=== PATIENT | female | born 1985 | race African-American/Black ===

== ENCOUNTER 2021-10-31 11:31 | Emergency (ER) | payer OTHER, SELFPAY ==
--- NOTE | 2021-10-31 11:36 | ED.URI ---
HPI - URI/Sore Throat General Chief Complaint: Upper Respiratory Infection Stated Complaint: sore throat Time Seen by Provider: 10/31/21 11:36 Source: patient Mode of arrival: ambulatory Limitations: no limitations History of Present Illness HPI Narrative: Ms. Briseno is a 36-year-old female patient presenting to the clinic today with complaints of sore throat, postnasal drip, sinus pressure, and nasal congestion x2 weeks. She reports no fever or chills however she has been having a productive cough at times. No known exposure to COVID, flu, or strep. MD elicited complaint: sore throat and nasal congestion Related Data Allergies Allergy/AdvReac Type Severity Reaction Status Date / Time No Known Allergies Allergy Unverified 09/04/18 19:00 Review of Systems Review of Systems: Pertinent positives per HPI. Patient denies any fever, chills, rash, headache, visual changes, dizziness, cough, shortness of breath, chest pain, palpitations, nausea, vomiting, diarrhea, constipation, abdominal pain, or any urinary issues. [facility] Social History Social History Smoking status: Never smoker Second hand tobacco smoke exposure: No Alcohol intake: current Comments At the time of my signature, I reviewed and agree with the nursing past medical, surgical, social, and family history. There is no relevant family history pertinent to the patient complaint. Exam Narrative: General: Well-developed, obese, in no apparent distress Head: Normocephalic, atraumatic Eyes: Pupils equally round and reactive to light bilaterally, EOM intact, sclera and conjunctive clear, no discharge, lids normal Ears: TMs intact and dull, ear canals ceruminous, no drainage, grossly hearing normal. Nose: Nares patent, no discharge, moderate inflammation to the anterior and posterior turbinates bilaterally, sinus tenderness to palpation over the maxillary and frontal sinuses. Mouth: Oral pharynx without lesions or masses, good dentition, MMM. Postnasal drip, oropharynx red Neck: Supple, trachea midline, no enlargement of anterior or posterior cervical nodes, no thyroid masses or goiter palpable. Cardio: Regular rate and rhythm, s1 and s2 normal, no murmur appreciated. Resp: Clear to auscultation bilaterally, no rhonchi, rales, wheezing or rubs Course Course Emergency Course: Portions of this record may have been created with voice recognition software. Level of Care: Express Care Visit Vital Signs Vital signs: Vital signs reviewed MDM - URI/Sore Throat MDM Narrative Medical decision making narrative: At the time of visit patient is resting comfortably on the exam table. She has had nasal congestion, sinus pressure, headaches, productive cough at times, and sore throat x2 weeks. Assessment shows that she has a an acute sinus infection and I will treat with a prescription for some Augmentin x10 days. Supportive measures were discussed with the patient and she voiced understanding and agrees with the treatment plan. Differential Diagnosis Differential diagnosis: Likely upper respiratory infection, croup, otitis media, sinusitis, viral infection, influenza and pharyngitis Discharge Plan Discharge Clinical Impression: Acute rhinosinusitis Patient Disposition: Home, Self-Care Condition: Stable Instructions: Antibiotic Form, Rhinosinusitis (ED) Additional Instructions: Take prescription medications only as prescribed-amoxicillin Increase fluids and stay well hydrated Tylenol/motrin for pain/fever Flonase and OTC antihistamines as directed Vicks vapor rub to open sinuses Sinus rinses for congestion Cepacol spray, cough drops, throat lozenges, warm tea with honey/lemon, gargle salt water to soothe throat Go to the ED if you develop high fever that is not controlled by Tylenol or Motrin, dehydration, weakness, lethargy, shortness of breath, or chest pain. Follow up with your PCP
[2021-10-31 11:39] VITALS: BP 128/59; PULSE 78; RESP 16; TEMP 37.1; O2SAT 99
== END 2021-10-31 11:47 | disposition home or self-care (01) ==
PROVIDERS: Emergency Provider Nurse Practitioner Family
DX: J01.90 Acute sinusitis, unspecified (principal); Z85.41 Personal history of malignant neoplasm of cervix uteri
CPT/HCPCS: 99213; G0463

== ENCOUNTER 2021-12-10 17:52 | Emergency (ER) | payer OTHER, SELFPAY ==
[2021-12-10 18:01] VITALS: BP 130/78; PULSE 116; RESP 16; TEMP 36.8; O2SAT 100
--- NOTE | 2021-12-10 18:29 | ED.URI ---
HPI - URI/Sore Throat General Chief Complaint: Upper Respiratory Infection Stated Complaint: Abdominal Pain,Cough Time Seen by Provider: 12/10/21 18:10 Source: patient Mode of arrival: ambulatory Limitations: no limitations History of Present Illness HPI Narrative: 36 yo F presents with c/o feeling lightheaded yesterday with N/V and raspy voice. Today no longer feeling lightheaded. Has not vomited since last night. States she has had headache and cough. Drank hot totty prior to arrival. Pt is talkative and smiling. Denies SOB and CP. States she stopped at [employer] on the way and bought some cough drops. covid vaccinated. All systems reviewed and negative except as noted above. Related Data Allergies Allergy/AdvReac Type Severity Reaction Status Date / Time No Known Allergies Allergy Unverified 12/10/21 17:56 Review of Systems Review of Systems: CONSTITUTIONAL: Denies fever, chills, or sweats. Reports fatigue EYES: Denies visual changes, redness, or discharge. ENT: Denies rhinorrhea, congestion, sore throat, or otalgia. CARDIOVASCULAR: Denies chest pain, palpitations, or edema. RESPIRATORY: reports cough. Denies dyspnea. GASTROINTESTINAL: Denies abdominal pain, nausea, vomiting, or diarrhea. GENITOURINARY: Denies dysuria or hematuria. SKIN: Denies rash or itching. MUSCULOSKELETAL: Denies back pain, joint pain, or myalgia. NEUROLOGIC: Reports headache, feeling lightheaded. Denies numbness, or weakness. PSYCHIATRIC: Denies anxiety or depression. All other systems reviewed are negative, except as documented in HPI. [facility] Social History Social History Smoking status: Never smoker Second hand tobacco smoke exposure: No Alcohol intake: current Comments At time of signature, agree with nursing past medical, surgical, social and family history. There is no relevant family history pertinent to the presenting complaint. Exam Narrative: GENERAL: This is a well-nourished, well-developed patient, in no apparent distress. HEAD: normocephalic, atraumatic. EYES: PERRL. Sclera clear/white. Vision is grossly intact. EARS: External ears normal, auditory canals clear and without drainage, TMs normal without perforation. Hearing grossly intact. NOSE: External nose normal with no obvious nasal discharge, nares without redness, no rhinorrhea. THROAT: Mucous membranes moist, posterior pharynx clear. NECK: Neck supple, non-tender without lymphadenopathy, masses or thyromegaly. CARDIOVASCULAR: Regular rate and rhythm without murmurs, gallops, or rubs. RESPIRATORY: Clear to auscultation. Breath sounds equal bilaterally. No wheezes, rales, or rhonchi. SKIN: warm, Dry, intact with no suspicious lesions or rash, good texture and turgor. NEURO: awake, alert, and oriented to person, place and time. There were no obvious focal neurologic abnormalities. EXTREMITIES: No joint tenderness, effusion, or edema noted. Course Course Level of Care: Express Care Visit Vital Signs Vital signs: Vital Signs Temperature 36.8 C 12/10/21 18:01 Pulse Rate 116 H 12/10/21 18:01 Respiratory Rate 16 12/10/21 18:01 Blood Pressure 130/78 12/10/21 18:01 Pulse Oximetry 100 12/10/21 18:01 Oxygen Delivery Room Air 12/10/21 18:01 Temperature 36.8 C 12/10/21 18:01 Pulse Rate 116 H 12/10/21 18:01 Respiratory Rate 16 12/10/21 18:01 Blood Pressure 130/78 12/10/21 18:01 Pulse Oximetry 100 12/10/21 18:01 Oxygen Delivery Room Air 12/10/21 18:01 Reviewed MDM - URI/Sore Throat MDM Narrative Medical decision making narrative: Patient is aware of diagnosis, understands and agrees to treatment plan. Anticipatory guidance given. Patient agrees to follow-up as directed and is aware of reasons to seek care at the emergency department. Portions of this record may have been created with voice recognition software positive rapid covid. prescribed antiviral, paxlovi
== END 2021-12-10 18:33 | disposition home or self-care (01) ==
PROVIDERS: Emergency Provider Nurse Practitioner Family
DX: U07.1 COVID-19 (principal); Z85.41 Personal history of malignant neoplasm of cervix uteri
CPT/HCPCS: 87426; 87804; 99213; C9803; G0463

== ENCOUNTER 2022-10-30 19:19 | Emergency (ER) | payer OTHER, SELFPAY ==
--- NOTE | 2022-10-30 19:24 | ED.URI ---
HPI - URI/Sore Throat General Chief Complaint: Upper Respiratory Infection Stated Complaint: Sinus, allergies, fever Time Seen by Provider: 10/30/22 19:24 Source: patient Mode of arrival: ambulatory Limitations: no limitations History of Present Illness HPI Narrative: Roderick is a 37-year-old female patient presenting to the clinic today with complaints of sinus congestion, headache, cough, possible allergies for over 1 week. She reports no known fever or chills. Is having a lot of sinus headache/pressure. Also is having a productive cough with green phlegm MD elicited complaint: sore throat and nasal congestion Related Data Allergies Allergy/AdvReac Type Severity Reaction Status Date / Time No Known Allergies Allergy Verified 10/30/22 19:22 Review of Systems Review of Systems: Pertinent positives per HPI. Patient denies any fever, chills, rash, headache, visual changes, dizziness, shortness of breath, chest pain, palpitations, nausea, vomiting, diarrhea, constipation, abdominal pain, or any urinary issues. [facility] Social History Social History Smoking status: Never smoker Second hand tobacco smoke exposure: No Alcohol intake: current Comments At the time of my signature, I reviewed and agree with the nursing past medical, surgical, social, and family history. There is no relevant family history pertinent to the patient complaint. Exam Narrative: General: Well-developed, well nourished, in no apparent distress Head: Normocephalic, atraumatic Eyes: Pupils equally round and reactive to light bilaterally, EOM intact, sclera and conjunctive clear, no discharge, lids normal Ears: TMs intact and congested, ear canals clear, no drainage, grossly hearing normal. Nose: Nares patent, green nasal discharge, moderate inflammation, maxillary and frontal sinus tenderness. Mouth: Oral pharynx red without lesions or masses, good dentition, PND, MMM. Neck: Supple, trachea midline, no enlargement of anterior or posterior cervical nodes, no thyroid masses or goiter palpable. Cardio: Regular rate and rhythm, s1 and s2 normal, no murmur appreciated. Resp: Faint expiratory wheezing, no rhonchi, rales,or rubs Course Course Emergency Course: Portions of this record may have been created with voice recognition software. Level of Care: Express Care Visit Vital Signs Vital signs: Vital signs reviewed MDM - URI/Sore Throat MDM Narrative Medical decision making narrative: At the time of visit patient is resting comfortably on the exam table. I suspect patient has acute bacterial rhinosinusitis and bronchitis. Prescription for albuterol inhaler, Augmentin, and prednisone was sent to the pharmacy. Supportive measures were discussed with the patient she voiced understanding of discharge instructions and agrees to treatment plan. Differential Diagnosis Differential diagnosis: Likely upper respiratory infection, otitis media, sinusitis, viral infection, bronchitis, influenza, pharyngitis and other (COVID) Discharge Plan Discharge Clinical Impression: Acute bacterial rhinosinusitis, Bronchitis Patient Disposition: Home, Self-Care Condition: Stable Instructions: Antibiotic Form, Acute Bronchitis (ED), Rhinosinusitis (ED) Additional Instructions: Take prescription medications only as prescribed-prednisone and augmentin Increase fluids and stay well hydrated Tylenol/motrin for pain/fever Flonase and OTC antihistamines as directed Vicks vapor rub to open sinuses Sinus rinses for congestion Cepacol spray, cough drops, throat lozenges, warm tea with honey/lemon, gargle salt water to soothe throat BRAT diet for diarrhea Clear liquids x 24 hours then advance as tolerated for nausea/vomiting Go to the ED if you develop a worsening in your condition- high fever not controlled by Tylenol or Motrin, dehydration, weakness, lethargy, shortness
[2022-10-30 19:27] VITALS: BP 137/80; PULSE 107; RESP 18; TEMP 37.1; O2SAT 100
== END 2022-10-30 19:42 | disposition home or self-care (01) ==
PROVIDERS: Emergency Provider Nurse Practitioner Family
DX: J01.90 Acute sinusitis, unspecified (principal); J40 Bronchitis, not specified as acute or chronic; Z85.41 Personal history of malignant neoplasm of cervix uteri
CPT/HCPCS: 99213; G0463

== ENCOUNTER 2023-01-05 19:44 | Emergency (ER) | payer OTHER, SELFPAY ==
[2023-01-05 19:48] VITALS: BP 144/78; PULSE 96; RESP 15; TEMP 36.3; O2SAT 98
[2023-01-05 20:33] LABS: Basophils Percent Auto 0.4 % (0.2-1.2); Eosinophils Absolute Auto 0.2 K/mm3 (0-0.3); Eosinophils Percent Auto 2.3 % (0-4.4); Hematocrit 39.2 % (37.0-47.0); Hemoglobin 13.2 g/dL (12.0-15.0); Immature Granulocyte Absolute 0.02 K/mm3 (0.00-0.031); Immature Granulocyte Percent A 0.2 % (0-0.5); Lymphocytes Absolute Auto 4.07 K/mm3 (0.9-3.2); Lymphocytes Percent Auto 48.6 % (18.3-44.2); Mean Corpuscular HGB Conc 33.7 g/dl (32-36); Mean Corpuscular Hemoglobin 29.1 pg (26-34); Mean Corpuscular Volume 86.3 fl (80-100); Monocytes Absolute Auto 0.5 K/mm3 (0.1-0.6); Monocytes Percent Auto 6.3 % (2.6-8.5); Neutrophils Absolute Auto 3.5 K/mm3 (1.3-6.7); Neutrophils Percent Auto 42.2 % (45.5-73.1); Platelet Count Result 408 k/mm3 (150-375); Red Blood Count 4.54 M/mm3 (4.2-5.4); Red Cell Distribution Width 11.9 % (11.5-14.5); White Blood Count 8.4 K/mm3 (4.5-10.0)
[2023-01-05 20:43] LABS: Alanine Aminotransferase 23 U/L (6-35); Albumin Level 4.5 g/dL (3.5-5.1); Alkaline Phosphatase 60 U/L (38-126); Anion Gap 10 mmol/L (8-16); Aspartate Amino Transferase 26 U/L (14-36); Bilirubin,Total 0.4 mg/dL (0.2-1.3); Blood Urea Nitrogen 13 mg/dL (7-17); Calcium 9.5 mg/dL (8.4-10.2); Carbon Dioxide 24 mmol/L (22-30); Chloride 106 mmol/L (98-107); Estimated CRCL calculation 74 ml/min; Estimated Glomerular Filt Rate > 60; Glucose 99 mg/dL (65-110); Potassium 3.7 mmol/L (3.4-5.0); Sodium 140 mmol/L (137-145)
[2023-01-05 20:46] LABS: Appearance Urine Turbid (Clear); Bacteria Urine 3+ /hpf; Bilirubin Urine Negative (Negative); Blood Urine 3+ (Negative); Color Urine Yellow (Yellow); Glucose Urine UA Negative (Negative); Ketones Urine Negative (Negative); Leukocyte Esterase Ur 3+ LEU/UL (Negative); Need Manual Microscopic Reviewed; Nitrate Urine Negative (Negative); Non Pathogenic Casts 0-2; Protein Urine Trace mg/dL (Negative); Specific Grav Ur 1.026 (1.001-1.035); Squamous Epithelial Cell Urine Many /hpf (Few); WBC Urine >100 /hpf; pH Urine 5.5 (5.0-9.0)
[2023-01-05 20:48] LABS: Prothrombin Time 13.2 Seconds (11.1-14.7)
--- NOTE | 2023-01-05 20:48 | ED.FEMALEGU ---
HPI - Female Genitourinary General Chief complaint: Vaginal Bleeding Stated complaint: vaginal bleeding Time Seen by Provider: 01/05/23 20:20 Source: patient Mode of arrival: ambulatory Limitations: no limitations History of Present Illness HPI Narrative: This is a 37-year-old female that presents to the emergency department for vaginal bleeding noted today. Reports she has had a total hysterectomy 13 years ago. Today she has had bright red vaginal bleeding. She has been having to use a pad. She presented for evaluation of this. Denies fever, abdominal pain, vomiting, dysuria, or hematuria. Related Data Allergies Allergy/AdvReac Type Severity Reaction Status Date / Time No Known Allergies Allergy Verified 01/05/23 19:51 Review of Systems Review of Systems: CONSTITUTIONAL: Denies fever GASTROINTESTINAL: Denies abdominal pain, nausea, vomiting, or diarrhea. GENITOURINARY: Denies dysuria or hematuria. All systems reviewed & are unremarkable except as noted in HPI and below PMFSH Past Medical History Medical History (Updated 01/05/23 @ 22:36 by Kat Wong PA-C) History of cervical cancer Social History Social History Smoking status: Never smoker Second hand tobacco smoke exposure: No Alcohol intake: current Exam Narrative: GENERAL: Well-appearing, well-nourished, and in no acute distress. HEAD: Normocephalic, atraumatic. EYES: EOMI. CHEST: Clear to auscultation. No respiratory distress. No wheezes rales or rhonchi HEART: Regular rate and rhythm. No murmur heard. Normal peripheral pulses. ABDOMEN: Soft, nontender, nondistended, normal active bowel sounds. EXTREMITIES: Normal range of motion. No edema. SKIN: Warm, dry, no rash. NEURO: No focal deficits. Alert and oriented x3. PSYCH: Normal mood and affect PELVIC: Vaginal cuff is friable with mild oozing of blood Course Course Emergency Course: Patient was updated on work-up and agrees with plan of care Consultations Consultation #1: Spoke with Dr. Villanueva about patient and workup who will follow up in clinic Date: 01/05/23 Vital Signs Vital signs: Vital Signs Temperature 97.4 F L 01/05/23 19:48 Pulse Rate 96 01/05/23 19:48 Respiratory Rate 15 01/05/23 19:48 Blood Pressure 144/78 H 01/05/23 19:48 Pulse Oximetry 98 01/05/23 19:48 Oxygen Delivery Room Air 01/05/23 19:48 Temperature 97.4 F L 01/05/23 19:48 Pulse Rate 79 01/05/23 21:44 Respiratory Rate 18 01/05/23 21:44 Blood Pressure 115/86 01/05/23 22:06 Pulse Oximetry 99 01/05/23 21:44 Oxygen Delivery Room Air 01/05/23 19:48 MDM - Female Genitourinary MDM Narrative Medical decision making narrative: Patient presents to the ER for vaginal bleeding. Patient has had hysterectomy about 13 years ago. She does have history of cervical cancer. Has friable area to the vaginal cuff that is slowly oozing blood. She is afebrile and nontoxic appearing. Her vitals are stable. Her hemoglobin is normal. UA with 3+ leuk esterase and >100 white blood cells. Patient does not endorse any urinary symptoms. This will be sent for a culture. Spoke with Dr. Villanueva about patient and workup who will follow up in clinic. Will send trichomonas. Patient was updated on work-up and agrees with plan of care. Instructed to have close follow-up with gynecology. She was given warnings to return to the ER Differential Diagnosis Differential diagnosis: Likely urinary tract infection, trichomoniasis, vaginitis and cystitis Lab Data Attestation: I reviewed the patient's lab results. 01/05/23 20:26 01/05/23 20:26 Labs: Lab Results 01/05/23 01/05/23 Range/Units 20:23 20:26 WBC 8.4 (4.5-10.0) K/mm3 RBC 4.54 (4.2-5.4) M/mm3 Hgb 13.2 (12.0-15.0) g/dL Hct 39.2 (37.0-47.0) % MCV 86.3 (80-100) fl MCH 29.1 (26-34) pg MCHC 33.7 (32-36) g/dl RDW 11.9 (1
[2023-01-05 20:49] LABS: Add Urine Microscopic? YES; Partial Thromboplastin Time 23.4 SECONDS (22.3-36.8)
[2023-01-05 21:44] VITALS: BP 140/76; PULSE 79; RESP 18; O2SAT 99
[2023-01-05 22:06] VITALS: BP 115/86
[2023-01-05 22:47] VITALS: PULSE 83; RESP 17; O2SAT 100
== END 2023-01-05 22:48 | disposition home or self-care (01) ==
PROVIDERS: Emergency Provider Physician Assistant
DX: N93.9 Abnormal uterine and vaginal bleeding, unspecified (principal); R82.81 Pyuria; Z85.41 Personal history of malignant neoplasm of cervix uteri
CPT/HCPCS: 36415; 80053; 81001; 85025; 85610; 85730; 86850; 86900; 86901; 87086; 87088; 87661; 99284

== ENCOUNTER 2023-01-06 12:29 | Emergency (ER) | payer OTHER, SELFPAY ==
[2023-01-06 12:32] VITALS: BP 134/78; PULSE 87; RESP 18; TEMP 36.4; O2SAT 98
--- NOTE | 2023-01-06 14:38 | PC.NURSE ---
pt angry about not getting an US, pt stated that she was to have one. Asked the pt who ordered one and stated, the doctor last night informed the pt, that if one was ordered she would have to go radiology outpatient for the test. also informed the pt that if one was not ordered she would have to be seen in ED and the provider would decide if one was necessary. Pt angry about conversation, asked for my name and number to call to complain. pt was given name and given card to pt advocate.
--- NOTE | 2023-01-06 15:56 | ED.GENADULT ---
HPI - General Adult General Chief complaint: Unspecified Stated complaint: needs ultrasound Time Seen by Provider: 01/06/23 15:35 Source: patient, RN notes reviewed and old records reviewed Mode of arrival: ambulatory Limitations: no limitations History of Present Illness HPI narrative: This is a 37 year old female who presents for evaluation of abnormal vaginal bleeding. Patient states yesterday she noticed vaginal bleeding. She states she came to ER for evaluation. She reports she was told by the provider last night that she wanted to do an ultrasound but they were not available. Patient was discharged on oral antibiotics and told to follow up with cabin agent. She has vaginal cultures that are pending. Patient states she called her cabin agent and she has appointment next Friday. Patient states she does not want to wait until next friday. She also reports she came back because she went through more than 1 pad an hour. Related Data Allergies Allergy/AdvReac Type Severity Reaction Status Date / Time No Known Allergies Allergy Verified 01/05/23 19:51 [facility] Past Medical History Medical History History of cervical cancer Surgical History Surgical History (Updated 01/06/23 @ 16:00 by Daisy Galvan MD) H/O: hysterectomy Social History Social History Smoking status: Never smoker Second hand tobacco smoke exposure: No Alcohol intake: current Exam Const: General: no acute distress, alert, awake and Physically active Orientation/consciousness: patient oriented x3 Limitations: no limitations Resp: Effort & Inspection: normal respiratory effort and able to speak in complete sentences Neuro: General: patient oriented x3 Course Reevaluation(s) Reevaluation #1: I had to take a phone call while I was obtaining history and physical. I was discussing with patient I read her chart from yesterday. I was talking to patient about US. I was not sure if US would be beneficial but I told her I would come back to talk to her to see if it or something else needed to be done. I discussed with patient that I think she needs to have labs redrawn since she still reports heavy bleeding. When I went back to see patient about to talk about everything, she had eloped. Date: 01/06/23 Time: 16:04 Vital Signs Vital signs: Vital Signs Temperature 97.6 F 01/06/23 12:32 Pulse Rate 87 01/06/23 12:32 Respiratory Rate 18 01/06/23 12:32 Blood Pressure 134/78 01/06/23 12:32 Pulse Oximetry 98 01/06/23 12:32 Oxygen Delivery Room Air 01/06/23 12:32 Temperature 97.6 F 01/06/23 12:32 Pulse Rate 87 01/06/23 12:32 Respiratory Rate 18 01/06/23 12:32 Blood Pressure 134/78 01/06/23 12:32 Pulse Oximetry 98 01/06/23 12:32 Oxygen Delivery Room Air 01/06/23 12:32 Medical Decision Making Vital Signs Vital Signs: Vital Signs Temperature 97.6 F 01/06/23 12:32 Pulse Rate 87 01/06/23 12:32 Respiratory Rate 18 01/06/23 12:32 Blood Pressure 134/78 01/06/23 12:32 Pulse Oximetry 98 01/06/23 12:32 Oxygen Delivery Room Air 01/06/23 12:32 Temperature 97.6 F 01/06/23 12:32 Pulse Rate 87 01/06/23 12:32 Respiratory Rate 18 01/06/23 12:32 Blood Pressure 134/78 01/06/23 12:32 Pulse Oximetry 98 01/06/23 12:32 Oxygen Delivery Room Air 01/06/23 12:32 Discharge Plan Discharge Clinical Impression: Abnormal vaginal bleeding Patient Disposition: Elopement After Seen by Prov Condition: Stable Prescriptions: No Action prednisone 20 mg tablet 40 mg PO DAILY 5 Days Qty: 10 0RF albuterol sulfate 90 mcg/actuation HFA aerosol inhaler 2 puff inhalation Q4-6H PRN (Reason: shortness of breath or wheezing) 30 Days Qty: 8.5 0RF amoxicillin-pot clavulanate 875-125 mg tablet 1 tablet PO Q12H 10 Days Qty: 20 0RF ce
== END 2023-01-06 16:26 | disposition left against medical advice (07) ==
LOC: ANHED 16:16
PROVIDERS: Emergency Provider General Practice
DX: N93.9 Abnormal uterine and vaginal bleeding, unspecified (principal); Z85.41 Personal history of malignant neoplasm of cervix uteri
CPT/HCPCS: 99281

== ENCOUNTER 2023-01-29 09:16 | Outpatient (CLI) | payer OTHER, SELFPAY | END 2023-01-29 09:17 | disposition home or self-care (01) | LOC: ANHSURGERY 09:21 | PROVIDERS: PCP Physician Assistant; Visit Provider Obstetrics & Gynecology | DX: D21.9 Benign neoplasm of connective and other soft tissue, unspecified (principal); Z01.818 Encounter for other preprocedural examination | CPT/HCPCS: 36415; 86850; 86900; 86901 ==

== ENCOUNTER 2023-02-07 00:27 | Day surgery (SDC) | payer OTHER, SELFPAY ==
[2023-01-28 15:00] VITALS: BMI 31.0
--- NOTE | 2023-01-28 15:01 | PC.NURSE ---
Report to the Outpatient Waiting Room, entrance under the green pavilion located off [facility], at time _0730_ on date _[id number]_. Planned Procedure Time: _0930_. Time changes happen often and if your time is changed the preop area will call you the afternoon before. - You and your visitor will be asked to self-screen and do not enter if you have any COVID symptoms. - A mask is optional within the hospital at this time. Patients may have clear liquids (water, carbonated beverages, clear teas, apple juice) until 3 hours prior to surgery with a maximum of 20 ounces. - No food from midnight until time of surgery Take the following medications with a SIP of water the morning of surgery: _None DO NOT STOP ANY OF YOUR OTHER PRESCRIPTION MEDICATIONS PRIOR TO SURGERY ?EXCEPT THE FOLLOWING Medications to discontinue per physician __None Date to take last dose Please no make-up, nail cameroonian, hairspray, perfume, deodorant, or body powder the day of surgery. No jewelry (including any body piercings) or valuables the day of surgery, leave them at home. Please take a shower or bath the night before, or the morning of, surgery with an antibacterial soap. Wear comfortable, loose fitting clothing. - Jewelry must be removed prior to entering the operating room. Rings and piercings that are not removed may be cut off. - The hospital will not accept responsibility for valuables. - Please leave all valuables, including medications, at home the day of surgery. If you are going home after surgery, a licensed hazmat tanker driver must drive you home. - NO public transportation without another adult if you receive anesthesia. - We recommend that an adult stay with you for 24 hours following discharge. - We also recommend that you do not drive, make important decision, drink alcoholic beverages, or take any drugs that were not prescribed by your health care provider for at least 24 hours after your discharge time. Follow any additional instructions given to you from your surgeon. If you or anyone in your household have experienced Covid symptoms in the past week, please notify your surgeon or the nurse liaison at the phone number below for possible testing. Telephone instructions given to _Patient__and asked if any additional questions and then verbalized understanding. Patient advised to call surgeon office or pre surgery nurse liaison [phone] if any additional questions.
--- NOTE | 2023-02-05 11:55 | P.HP_ITS ---
H&P: HPI History of Present Illness Date/Time: 02/05/23 11:55 Chief Complaint: Uterine fibroids enlarged uterus/vaginal bleeding Narrative: This is 37-year-old female with known uterine fibroids proven by imaging admitted for robotic hysterectomy bilateral salpingectomy. She had an ablation and failed she continues to have dyspareunia is enlarged uterus and agrees to robotic hysterectomy and bilateral salpingectomy. Risks and benefits reviewed including not exclusive of , aspiration, bleeding, transfusion, perforation injury to bowel, bladder, ureters, or other internal organs with need for open laparotomy. She received the [employer] handout entitled hysterectomy. She received the de Puneet handout. She had all questions answered. She asked to proceed. [facility] Past Medical History Medical History History of cervical cancer Surgical History Surgical History H/O: hysterectomy Social History Social History Smoking status: Never smoker Second hand tobacco smoke exposure: No Alcohol intake: current Living arrangements: with family Spiritual care concerns: No Meds Home Medications and Allergies Home Medications Medication Instructions Recorded Confirmed Type No Home Medications 01/28/23 01/28/23 History Allergies Allergy/AdvReac Type Severity Reaction Status Date / Time No Known Allergies Allergy Verified 01/28/23 14:50 Exam Const: General: cooperative, healthy appearing and comfortable Nutritional Appearance: average body habitus Orientation/consciousness: oriented to person, oriented to place and oriented to time HENMT: Head: normal to inspection Resp: Effort & Inspection: normal respiratory effort Cardio: Rate: regular rate Rhythm: regular rhythm Heart sounds: S1 normal heart sound present and S2 normal heart sound present GI: Inspection: normal to inspection : External Female Exam: normal external appearance Speculum Exam - Vagina: normal appearance of the vagina Speculum Exam - Cervix: normal appearance of the cervix Bimanual exam- vagina & uterus: enlarged Bimanual Exam- Adnexa, other: normal adnexae Assessment and Plan Assessment and plan (1) Uterine fibroid: Code(s): D25.9 - Leiomyoma of uterus, unspecified Status: Acute Plan Robotic total vaginal hysterectomy and bilateral salpingectomy
[2023-02-07] VITALS (11 sets, daily range): BP systolic 110–149; BP diastolic 60–98; PULSE 78–98; RESP 12–20; TEMP 36.6–37.2; O2SAT 95–100
--- NOTE | 2023-02-07 06:25 | WPDHPUPDATE1 ---
History and Physical Update Update Date/Time: 02/07/23 06:25 History and Physical has been reviewed, including an updated exam of the patient. There are NO changes in the patient's condition. Risks, benefits, and alternatives have been discussed and questions answered. Patient agrees to proceed with procedure.
[2023-02-07] MEDS: LACTATED RINGERS 1,000 ML 30 ML IV CONT ×2 (06:30→09:06)
[2023-02-07] MEDS: ACETAMINOPHEN 500 MG TABLET 1000 MG PO (06:44)
[2023-02-07] MEDS: KETOROLAC 15 MG/ML VIAL (*BKC) IV PUSH (06:44)
--- NOTE | 2023-02-07 06:54 | WPDANESEPPF ---
Anes - Initial Pre Proc Eval Procedure: Operation Date: 02/07/23 07:30 Proposed Procedures p Robotic Assisted Total Vaginal Hysterectomy, Bilateral Salpingectomy - Fabien Schaffer MD Date/Time: 02/07/23 06:54 Surgeon: Fabien Schaffer MD Pre Op Diagnosis: Pelvic Pain,Fibroid,Failed Ablation,Dyspareunia Patient Data Age: 37 Gender: F Height: 1.6 m Weight: 79.5 kg Allergies Allergy/AdvReac Type Severity Reaction Status Date / Time No Known Allergies Allergy Verified 01/28/23 14:50 Home Medications Medication Instructions Recorded Confirmed Type hydrocodone 5 mg-acetaminophen 325 1 tablet PO Q4H PRN pain #30 tabs 02/07/23 Rx mg tablet Patient hx anesthesia problems: none Family hx anesthesia problems: none Results Review: All pre-operative results and documents have been reviewed as part of the pre-operative evaluation. [facility] Past Medical History Medical History History of cervical cancer Surgical History Surgical History H/O: hysterectomy Social History Social History Smoking status: Never smoker Second hand tobacco smoke exposure: No Alcohol intake: current Living arrangements: with family Spiritual care concerns: No Anes - Eval Final PreProcedure Day of Procedure 02/07/23 06:54 Patient weight: obese Heart: regular rate and rhythm Lungs: clear to auscultation Airway: Mallampati scale class II Neurological: alert and oriented Last oral intake: >/= 8 hours ASA classification: II Emergent: no Anesthetic plan: proceed Anesthesia type and monitoring: general ETT and standard monitoring Results Review: All pre-operative results and documents have been reviewed as part of the pre-operative evaluation. Informed Consent: The patient's anesthetic plan and its attendant risks and benefits were discussed with the patient/family/POA. Questions were solicited and answers provided to the satisfaction of the patient/family/POA.
[2023-02-07] MEDS: SCOPOLAMINE 1.5 MG PATCH TRANSDERM (07:20)
[2023-02-07] MEDS: ceFAZolin 2 GM/D5W 50 ML 2 GM/50 ML BAG IVPB (07:25)
--- NOTE | 2023-02-07 08:35 | W.PM.PROC2 ---
Procedure Note - Detailed Date of Procedure 02/07/23 Pre-op Diagnosis Pelvic Pain,Fibroid,Failed Ablation,Dyspareunia Post-op Diagnosis Same Procedure Performed Robotic total vaginal hysterectomy bilateral salpingectomy Surgeon Fabien Schaffer MD Anesthesia General Indications 37-year-old female with known fibroids and severe pelvic pain Findings Markedly enlarged fibroid uterus. A large hematosalpinx on the right. Left tube was status post tubal ligation. Bilateral ovaries appeared within normal limits Description of Procedure Patient was prepped draped in normal sterile fashion placed in dorsal lithotomy position. Under excellent general trach anesthesia weighted speculum placed in posterior fornix vagina. Anterior lip of the cervix grasped with single-tooth tenaculum. Uterus sounded to 8cm. Serial dilatation fragmented os performed followed passes by the 8. MILAN and the 3. Cold cup. Next the 16 [place] catheter was placed in the bladder drained clear urine. The weighted speculum and single-tooth removed and the gloves were changed. Supraumbilical incision made the Veress needle passed in the abdomen. Abdomen filled with CO2 gas 15mmHg. The 8mm trocar advanced in the abdomen. Downside visualized no injury seen. Gas reattached the patient placed in Trendelenburg. Left and right lateral quadrant incision made the 8mm trocars advanced under direct visualization assuring no injury. Right upper quadrant incision made the 8mm trocars advanced under direct visualization assuring injury. The robot was docked. Attention was turned to the rehabilitation counsellor. Some adhesions were seen anteriorly from the omentum to the anterior abdominal wall and these were sharply dissected easily to help facilitate visualization. The large left metal salpinx was sharply dissected drained and placed in the cul-de-sac to was too big to be removed prior to that. The left round ligament was grasped, burned, cut. Anterior bladder flap was formed by sharply dissecting peritoneum and the retracting the bladder caudally away from the cervix and uterus to the opposite round ligament which was clamped, burned, cut. Next the low right fallopian tube was skeletonized clamping burning cutting and removing that from the ovarian complex this was passed through the right upper quadrant incision. The left utero-ovarian ligament was clamped, burned, cut and brought to the previously cut round ligament. Conserving the right ovary the utero-ovarian ligament was clamped, burned, cut and brought to the level of previously cut round ligament. Cardinal broad ligaments on the left were then serially skeletonized clamping burning cutting and hugging the cervix uterus and to the large tortuous uterine vessels could be seen on the left these were individually clamped, burned, cut. In like fashion the cardinal broad ligaments on the right were skeletonized skeletonized clamped, burned, cut and brought down the lateral edge of the uterus cervix until the large uterine vessels could be seen right. These were individually clamped, burned, cut. Blanching of the uterus was noted. A colpotomy incision was made the cervix uterus were removed through the vagina. The large a displaced left fallopian tube was also passed through the vagina. The vagina was then closed with continuous running 0 Vicryl from lateral edge to lateral edge and back to the midline. Hemostasis was assured. Blood loss was estimated at25cc the robot was undocked. The gas removed from the abdomen. The incisions closed with 4-0 Monocryl and glue. The patient went to recovery in satisfactory condition. All sponge, needle, instrument counts were correct. There were no immediate complications Estimated Blood Loss 25 Drains No Packing No Pathology Yes Complications No immediate complications Condition Stable Disposition PACU
--- NOTE | 2023-02-07 08:41 | PM.DS ---
DS: Admitting Diagnosis Discharge Date 02/08/2023 Admitting Diagnosis Uterine fibroids/pelvic pain DS: Discharge Diagnosis Discharge Diagnosis (1) Uterine fibroid: Code(s): D25.9 - Leiomyoma of uterus, unspecified Status: Acute DS: Summary Hospital Course Reason for hospitalization: Patient was admitted for robotic total vaginectomy and bilateral salpingectomy. Hospital Course: Patient underwent the above-named procedure on 02/07/23. Hospital course thereafter was unremarkable. She remained afebrile. She was up, voiding without difficulty, ambulating, eating regular diet, and generally without complaints. Time Spent with Patient Time attestation: Total time spent providing and/or coordinating discharge services: Exam Const: General: cooperative, healthy appearing and comfortable Nutritional Appearance: average body habitus Orientation/consciousness: oriented to person, oriented to place and oriented to time HENMT: Head: normal to inspection Resp: Effort & Inspection: normal respiratory effort Cardio: Rate: regular rate Rhythm: regular rhythm Heart sounds: S1 normal heart sound present and S2 normal heart sound present GI: Inspection: normal to inspection and incision (Wounds are clean dry and intact) DS: Data Data Completed and Pending Pending studies at discharge: Pending at discharge 02/07/23 08:34 Surgical [PTH] Routine Discharge Plan Discharge Patient Disposition: Home, Self-Care Discharge Instructions: Remove the Scopolamine patch that was placed behind your ear in 72 hours or less. Wash your hands after touching. Nothing in the vagina for 6 weeks. Call or return if temperature above 100.4? F, increased abdominal pain, increased vaginal bleeding or any new problems. Patient Instructions: Hysterectomy (DC) Stand Alone Forms: General Discharge Instructions Follow-up/Referrals: Fabien Razo MD [Physician] - 2 Weeks Discharge Medications: New hydrocodone-acetaminophen 5-325 mg tablet 1 tablet PO Q4H PRN (Reason: pain) Qty: 30 0RF
[2023-02-07] MEDS: fentaNYL CITRATE INJ (*CRX) 100 MCG/2 ML VIAL 25 MCG IV PUSH ×8 (09:14→09:52)
--- NOTE | 2023-02-07 10:26 | PC.NURSE ---
This patient, Roderick Briseno, was received from PACU via bed on 02/07/23 at 1026. Patient/family oriented to unit policies and routines.
[2023-02-07] MEDS: KETOROLAC 30 MG/ML VIAL (*BKC) IV PUSH ×2 (11:24→19:09)
[2023-02-07] MEDS: DEXTROSE 5%/LACTATED RINGERS 1,000 ML 125 ML IV CONT (11:24)
[2023-02-07] MEDS: ONDANSETRON INJ 4 MG/2 ML VIAL IV PUSH (14:07)
[2023-02-07] MEDS: HYDROcodone/acetaminophen (*CRX) 10-325 MG TABLET 1 TAB PO ×2 (14:21→17:31)
[2023-02-07] MEDS: DOCUSATE SODIUM 100 MG CAPSULE PO (17:29)
[2023-02-08 00:10] VITALS: BP 96/62; PULSE 92; RESP 20; TEMP 36.7; O2SAT 97
[2023-02-08] MEDS: ONDANSETRON INJ 4 MG/2 ML VIAL IV PUSH (00:20)
[2023-02-08] MEDS: HYDROcodone/acetaminophen (*CRX) 5-325 MG TABLET 1 TAB PO ×3 (00:21→09:22)
[2023-02-08 05:00] VITALS: BP 103/70; PULSE 75; RESP 14; TEMP 36.8; O2SAT 97
[2023-02-08] MEDS: IBUPROFEN 600 MG TABLET PO (05:18)
[2023-02-08 05:28] LABS: Basophils Percent Auto 0.1 % (0.2-1.2); Eosinophils Percent Auto 0.5 % (0-4.4); Hematocrit 35.4 % (37.0-47.0); Hemoglobin 12.1 g/dL (12.0-15.0); Immature Granulocyte Absolute 0.04 K/mm3 (0.00-0.031); Immature Granulocyte Percent A 0.5 % (0-0.5); Lymphocytes Absolute Auto 2.58 K/mm3 (0.9-3.2); Lymphocytes Percent Auto 33.1 % (18.3-44.2); Mean Corpuscular HGB Conc 34.2 g/dl (32-36); Mean Corpuscular Hemoglobin 29.6 pg (26-34); Mean Corpuscular Volume 86.6 fl (80-100); Mean Platelet Volume 8.6 fl (7.4-10.4); Monocytes Absolute Auto 0.6 K/mm3 (0.1-0.6); Monocytes Percent Auto 7.4 % (2.6-8.5); Neutrophils Absolute Auto 4.6 K/mm3 (1.3-6.7); Neutrophils Percent Auto 58.4 % (45.5-73.1); Platelet Count Result 386 k/mm3 (150-375); Red Blood Count 4.09 M/mm3 (4.2-5.4); Red Cell Distribution Width 11.7 % (11.5-14.5); White Blood Count 7.8 K/mm3 (4.5-10.0)
[2023-02-08 09:10] VITALS: BP 112/68; PULSE 66; RESP 16; TEMP 36.9; O2SAT 99
[2023-02-08] MEDS: SIMETHICONE 80 MG TAB.CHEW PO (09:22)
[2023-02-08] MEDS: DOCUSATE SODIUM 100 MG CAPSULE PO (09:22)
[2023-02-08] MEDS: ENOXAPARIN 40 MG/0.4 ML SYRINGE SUB-Q (09:23)
--- NOTE | 2023-02-08 09:29 | PM.GYNPNOP ---
SLAB POLISHER - A/P Assessment and plan (1) Uterine fibroid: Code(s): D25.9 - Leiomyoma of uterus, unspecified Status: Acute Assessment and Plan: A: POD#1, doing well. P: Home to f/u 2 weeks. Postoperative Procedures: Procedures Operation Date: 02/07/23 07:30 Actual Procedure Side Surgeon p Robotic Assisted Total Vaginal Hysterectomy, Bilateral Salpingectomy Bilateral Fabien Schaffer MD Postoperative day: 1 Postoperative status: doing well Postoperative plan: routine post-op care and discharge Time Spent With Patient Time with patient: less than 15 minutes SLAB POLISHER- PN:Subj Post-Op Subjective Date/time seen: 02/08/23 09:29 Interval history: Pain OK. Tolerating diet. Voiding. Would like to go home. Exam Narrative: AVSS I/O OK ABD soft, nontender. Incisions c/d/i. EXT nontender SLAB POLISHER - PN: Obj Data Vital Signs Vital Signs: Vital Signs - 24 hr 02/07/23 09:30 02/07/23 09:45 02/07/23 10:00 Temperature Pulse Rate 85 97 87 Respiratory Rate 12 16 18 Blood Pressure 145/90 H 149/98 H 137/86 Pulse Oximetry 95 96 97 Oxygen Delivery Room Air Room Air Room Air 02/07/23 10:15 02/07/23 10:30 02/07/23 15:40 Temperature 36.6 C 36.7 C Pulse Rate 87 90 91 Respiratory Rate 18 16 18 Blood Pressure 133/86 131/88 131/80 Pulse Oximetry 97 99 98 Oxygen Delivery Room Air 02/07/23 19:00 02/08/23 00:10 02/08/23 05:00 Temperature 37.2 C 36.7 C 36.8 C Pulse Rate 82 92 75 Respiratory Rate 16 20 14 Blood Pressure 111/72 96/62 L 103/70 Pulse Oximetry 96 97 97 Oxygen Delivery Intake/Output Intake/Output: Intake & Output 02/05/23 02/06/23 02/07/23 02/08/23 23:59 23:59 23:59 23:59 Intake Total 2650 250 Output Total 1130 500 Balance 1520 -250 Meds/Results Medications: Active Medications Generic Name Dose Route Start Last Admin Trade Name Freq PRN Reason Stop Dose Admin Hydrocodone Bitart/Acetaminophen 1 tab 02/07/23 10:21 02/08/23 09:22 Hydrocodone/Acetaminophen (*Crx) 5-325 Mg Tablet PO 1 tab Q3H PRN Administration Pain Rated 5 or Less Hydrocodone Bitart/Acetaminophen 1 tab 02/07/23 10:21 02/07/23 17:31 Hydrocodone/Acetaminophen (*Crx) 10-325 Mg Tablet PO 1 tab Q3H PRN Administration Pain Rated 6 or Greater Docusate Sodium 100 mg 02/07/23 10:21 02/08/23 09:22 Docusate Sodium 100 Mg Capsule PO 100 mg BID ADELITA Administration Enoxaparin Sodium 40 mg 02/08/23 09:00 02/08/23 09:23 Enoxaparin 40 Mg/0.4 Ml Syringe SUB-Q 40 mg DAILY ADELITA Administration Dextrose/Lactated Ringer's 1,000 mls @ 125 mls/hr 02/07/23 10:21 02/08/23 06:47 Dextrose 5%/Lactated Ringers IV CONT Not Given .Q8H ADELITA Ibuprofen 600 mg 02/07/23 10:21 02/08/23 05:18 Ibuprofen 600 Mg Tablet PO 600 mg Q6H PRN Administration Cramping Ketorolac Tromethamine 30 mg 02/07/23 10:21 02/07/23 19:09 Ketorolac 30 Mg/Ml Vial (*Bkc) IV PUSH 02/12/23 10:20 30 mg Q6H PRN Administration Pain Rated 4-6 Naloxone HCl 0.1 mg 02/07/23 10:21 Naloxone Hcl 0.4 Mg/Ml Vial IV PUSH Q2M PRN Respiratory rate less than 10 Ondansetron HCl 4 mg 02/07/23 10:21 02/08/23 00:20 Ondansetron Inj 4 Mg/2 Ml Vial IV PUSH 4 mg Q6H PRN Administration Nausea And Vomiting Simethicone 80 mg 02/07/23 10:21 02/08/23 09:22 Simethicone 80 Mg Tab.Chew PO 80 mg Q2H PRN Administration Gas Labs 02/08/23 05:07 Labs: Laboratory Results - last 24 hr 02/08/23 05:07 WBC 7.8 RBC 4.09 L Hgb 12.1 Hct 35.4 L MCV 86.6 MCH 29.6 MCHC 34.2 RDW 11.7 Plt Count 386 H MPV 8.6 Immature Gran % (Auto) 0.5 Neut % (Auto) 58.4 Lymph % (Auto) 33.1 [place] % (Auto) 7.4 Eos % (Auto) 0.5 Baso % (Auto) 0.1 L Lymph # (Auto) 2.58 [place] # (Auto) 0.6 Eos # (Auto) 0.0 Baso # (Auto) 0.0 Abs Immat Gran (auto) 0.04 H Absolute Neuts (auto) 4.6 Absolute Nucleated RBC 0.0 Nuc
== END 2023-02-08 12:08 | disposition home or self-care (01) ==
LOC: ANHSURGERY 07:28 → ANHOB2 10:23
PROVIDERS: PCP Physician Assistant; Visit Provider Obstetrics & Gynecology
PROC: (CPT 58552; principal; 2023-02-07 07:30)
DX: D25.2 Subserosal leiomyoma of uterus (principal); D25.1 Intramural leiomyoma of uterus; N83.6 Hematosalpinx; R10.2 Pelvic and perineal pain; N94.10 Unspecified dyspareunia; Z85.41 Personal history of malignant neoplasm of cervix uteri; E66.9 Obesity, unspecified; Z68.31 Body mass index [BMI] 31.0-31.9, adult; Z79.891 Long term (current) use of opiate analgesic
CPT/HCPCS: 58552; S2900; 36415; 85025; 88307; 99199; A9270; J0690; J1100; J1170; J1650; J1885; J2250; J2405; J2704; J3010; J7030; J7120; J7121

== ENCOUNTER 2023-04-01 10:26 | Outpatient (CLI) | payer OTHER, SELFPAY ==
--- NOTE | ~2023-04-01 | US_ITS ---
EXAMINATION: US soft tissue head and neck DATE: 04/01/2023 11:06 INDICATION: Cervical lymphadenopathy. TECHNIQUE: Multiple grayscale and Doppler ultrasound images of the head and neck were obtained. COMPARISON: Cervical spine CT 11/23/2013 FINDINGS: Images demonstrate normal-sized lymph nodes in the neck bilaterally. IMPRESSION: 1. No abnormal neck mass or lymphadenopathy. Reviewed, dictated and finalized at location A.
== END 2023-04-01 10:27 | disposition home or self-care (01) ==
PROVIDERS: PCP Physician Assistant; Visit Provider Physician Assistant
DX: R59.0 Localized enlarged lymph nodes (principal)
CPT/HCPCS: 76536

== ENCOUNTER 2023-08-26 14:00 | Outpatient (CLI) | payer OTHER, SELFPAY ==
--- NOTE | ~2023-08-26 | MM_ITS ---
EXAMINATION: MM screening natanael BI w chandra HISTORY: Screening mammogram TECHNIQUE: Craniocaudal and mediolateral oblique 3-D tomosynthesis images were obtained and synthetic 2-D images were generated. CAD analysis was submitted and interpreted. COMPARISON: No prior mammogram is available for comparison at this institution. BREAST PARENCHYMAL COMPOSITION: The breasts are almost entirely fatty. FINDINGS: There is no evidence of suspicious mass, calcification, or architectural distortion to sugg est malignancy in either breast. IMPRESSION: 1. No mammographic evidence of malignancy. 2. Recommend routine screening mammography in one year. BI-RADS Category 1: Negative Reviewed, dictated and finalized at location A. 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
== END 2023-08-26 14:01 | disposition home or self-care (01) ==
PROVIDERS: PCP Physician Assistant; Visit Provider Obstetrics & Gynecology
DX: Z12.31 Encounter for screening mammogram for malignant neoplasm of breast (principal)
CPT/HCPCS: 77063; 77067

== ENCOUNTER 2023-12-31 17:20 | Emergency (ER) | payer OTHER, SELFPAY ==
[2023-12-31] VITALS (13 sets, daily range): BP systolic 116–138; BP diastolic 77–99; PULSE 59–85; RESP 12–26; O2SAT 97–100
--- NOTE | ~2023-12-31 | CT_ITS ---
EXAMINATION: CT abdomen pelvis w con DATE: 12/31/2023 18:24 INDICATION: Epigastric abdominal pain. Blood in stool. TECHNIQUE: Computed tomography (CT) of the abdomen and pelvis was performed with 100 mL Omnipaque 350 intravenous contrast. Automated exposure control and iterative reconstruction technique were employe d. The dose-length product was 620.65 mGy-cm. COMPARISON: None. FINDINGS: The visualized portions of the lung bases demonstrate mild atelectasis. No pleural effusion . The heart size is normal. No pericardial effusion. The liver, gallbladder, spleen, pancreas, adrena l glands, and kidneys are normal. There is prominent fat in the inguinal canals that may be hernias. There are no dilated loops of bowel. The appendix is normal. There are no pathologically enlarged lym ph nodes. There is no free intraperitoneal fluid. There is mild lumbar spondylosis. IMPRESSION: 1. No etiology for the patient's symptoms. Reviewed, dictated and finalized at location E.
[2023-12-31 17:42] LABS: Basophils Percent Auto 0.3 % (0.2-1.2); Eosinophils Absolute Auto 0.2 K/mm3 (0-0.3); Eosinophils Percent Auto 2.7 % (0-4.4); Hematocrit 38.4 % (37.0-47.0); Hemoglobin 13.2 g/dL (12.0-15.0); Immature Granulocyte Absolute 0.01 K/mm3 (0.00-0.031); Immature Granulocyte Percent A 0.2 % (0-0.5); Lymphocytes Absolute Auto 3.45 K/mm3 (0.9-3.2); Mean Corpuscular HGB Conc 34.4 g/dl (32-36); Mean Corpuscular Hemoglobin 29.1 pg (26-34); Mean Corpuscular Volume 84.8 fl (80-100); Mean Platelet Volume 8.9 fl (7.4-10.4); Monocytes Absolute Auto 0.4 K/mm3 (0.1-0.6); Monocytes Percent Auto 6.3 % (2.6-8.5); Neutrophils Absolute Auto 1.8 K/mm3 (1.3-6.7); Neutrophils Percent Auto 31.5 % (45.5-73.1); Platelet Count Result 389 k/mm3 (150-375); Red Blood Count 4.53 M/mm3 (4.2-5.4); Red Cell Distribution Width 12.1 % (11.5-14.5); White Blood Count 5.9 K/mm3 (4.5-10.0)
[2023-12-31 17:52] LABS: Alanine Aminotransferase 24 U/L (6-35); Albumin Level 4.5 g/dL (3.5-5.1); Alkaline Phosphatase 70 U/L (38-126); Anion Gap 9 mmol/L (4-12); Aspartate Amino Transferase 25 U/L (14-36); Bilirubin,Total 0.5 mg/dL (0.2-1.3); Blood Urea Nitrogen 15 mg/dL (7-17); Calcium 9.1 mg/dL (8.4-10.2); Carbon Dioxide 26 mmol/L (22-30); Chloride 106 mmol/L (98-107); Estimated CRCL calculation 63 ml/min; Estimated Glomerular Filt Rate > 60; Glucose 90 mg/dL (65-110); Potassium 3.7 mmol/L (3.4-5.0); Sodium 141 mmol/L (137-145)
[2023-12-31 17:53] LABS: Prothrombin Time 13.3 Seconds (11.1-14.7)
[2023-12-31 17:54] LABS: Partial Thromboplastin Time 26.7 Seconds (22.3-36.8)
--- NOTE | 2023-12-31 18:00 | ED.GIBLEED ---
HPI - GI Bleed General Chief complaint: GI Bleed Stated complaint: blood in stool Time Seen by Provider: 12/31/23 17:31 Source: patient Mode of arrival: ambulatory Limitations: no limitations History of Present Illness HPI Narrative: This is a 38-year-old female who presents to the ED for chief complaint of bright red blood per rectum x2 days. Reports that she has noticed with multiple bowel movements blood in her stools. She does state that the redness fills up the toilet. There is no bleeding except for when she has a bowel movement. Denies vaginal bleeding. Endorses epigastric pain that has been chronic. She had an upper endoscopy last month and was told to double up on her PPI, which she has been doing. Denies fevers, chills, nausea, vomiting, flank pain, urinary symptoms, hematuria, syncope, lightheadedness. Related Data Allergies Allergy/AdvReac Type Severity Reaction Status Date / Time No Known Allergies Allergy Verified 12/31/23 17:31 Review of Systems Review of Systems: All systems as dictated in HPI [facility] Past Medical History Medical History History of cervical cancer Surgical History Surgical History H/O: hysterectomy Social History Social History Smoking status: Never smoker Second hand tobacco smoke exposure: No Alcohol intake: current Living arrangements: with family Spiritual care concerns: No Exam Narrative: GENERAL: Well-appearing, well-nourished, and in no acute distress. HEAD: Normocephalic, atraumatic. EYES: PERRLA and EOMI. ENT: Nares clear, no rhinorrhea or epistaxis. Mucous membranes moist. Oropharynx without tonsillar hypertrophy exudate or other lesions. NECK: Supple. No adenopathy or masses. CHEST: No respiratory distress. Clear to auscultation. No wheezes rales or rhonchi HEART: Regular rate and rhythm. No murmur heard. Normal peripheral pulses. ABDOMEN: mild epigastric tenderness. Soft, otherwise nontender, nondistended, normal active bowel sounds. MSK: Normal range of motion. No edema. SKIN: Warm, dry, no rash. NEURO: Alert and oriented x4. No focal deficits. PSYCH: Normal mood and affect. Rectal exam performed with female RN dessert cup machine feeder present: No external lesions. No hemorrhoids noted. No bleeding. Course Vital Signs Vital signs: Vital Signs Pulse Rate 70 12/31/23 17:32 Blood Pressure 130/77 12/31/23 17:32 Pulse Rate 82 12/31/23 17:35 Blood Pressure 130/90 12/31/23 17:35 MDM - GI Bleed MDM Narrative Medical decision making narrative: This is a 38-year-old female who presents to the ED for chief complaint of bright red bleeding per rectum x2 days with bowel movements. Chronic epigastric pain noted as well. Vitals are normal. Exam shows mild epigastric tenderness. Otherwise exam is benign. She is nontoxic appearing and resting comfortably. Rectal exam unremarkable lab work is grossly unremarkable. CT scan also unremarkable overall. Discussed findings with the patient. We discussed that this bleeding likely will resolve on its own. Return precautions were given. She has GI doctor for close follow-up. Patient will be discharged in stable condition. Lab Data 12/31/23 17:33 12/31/23 17:33 Labs: Lab Results 12/31/23 Range/Units 17:33 WBC 5.9 (4.5-10.0) K/mm3 RBC 4.53 (4.2-5.4) M/mm3 Hgb 13.2 (12.0-15.0) g/dL Hct 38.4 (37.0-47.0) % MCV 84.8 (80-100) fl MCH 29.1 (26-34) pg MCHC 34.4 (32-36) g/dl RDW 12.1 (11.5-14.5) % Plt Count 389 H (150-375) k/mm3 MPV 8.9 (7.4-10.4) fl Immature Gran % (Auto) 0.2 (0-0.5) % Neut % (Auto) 31.5 L (45.5-73.1) % Lymph % (Auto) 59.0 H (18.3-44.2) % [place] % (Auto) 6.3 (2.6-8.5) % Eos % (Auto) 2.7 (0-4.4) % Baso % (A
== END 2023-12-31 19:03 | disposition home or self-care (01) ==
PROVIDERS: Emergency Medicine; Emergency Provider Physician Assistant; PCP Physician Assistant
DX: K62.5 Hemorrhage of anus and rectum (principal); Z85.41 Personal history of malignant neoplasm of cervix uteri
CPT/HCPCS: 36415; 74177; 80053; 85025; 85610; 85730; 86850; 86900; 86901; 99284; Q9967

== ENCOUNTER 2024-04-30 13:14 | Emergency (ER) | payer OTHER, SELFPAY ==
[2024-04-30 13:17] VITALS: BP 128/82; PULSE 63; RESP 16; TEMP 36.4; O2SAT 100
--- NOTE | 2024-04-30 14:55 | ED.SKABFB ---
HPI - Skin/Abscess/Foreign Bdy General Chief complaint: Skin/Abscess/Foreign Body Stated complaint: thumb issue since January Time Seen by Provider: 04/30/24 14:43 Source: patient Mode of arrival: ambulatory Limitations: no limitations History of Present Illness HPI narrative: 38-year-old female with left thumb swelling and pain for 3 months. Came in today because it has been hurting when she bumps it on things. No other complaints. Related Data Allergies Allergy/AdvReac Type Severity Reaction Status Date / Time No Known Allergies Allergy Verified 04/30/24 13:16 Review of Systems Review of Systems: All systems reviewed & are unremarkable except as noted in HPI and below PMFSH Past Medical History Medical History History of cervical cancer Surgical History Surgical History H/O: hysterectomy Social History Social History Smoking status: Never smoker Second hand tobacco smoke exposure: No Alcohol intake: current Living arrangements: with family Spiritual care concerns: No Exam Narrative: Constitutional: Generally well appearing, no acute distress Head: Atraumatic, no deformities. Eyes: Pupils equal, round, and reactive to light. Neck: Supple, no tracheal deviation, no JVD. ENMT: Mucous membranes moist Cardiovascular: S1, S2 auscultated. No murmurs, rubs, or gallops. No S3/S4. Normal Distal pulses. No peripheral edema. Respiratory: Lung sounds equal. No wheezes, rales, or rhonchi. Gastrointestinal: Abdomen was soft and non-tender. Non-distended. No rebound or guarding. Genitourinary: Deferred Musculoskeletal: Normal muscle tone and bulk. No obvious deformities or tenderness over extremities. Skin: Left thumb shows mild erythema, warmth over the medial aspect of the nail bed with no discharge Neurological: Strength 5/5 in extremities. Cranial nerves I-XII grossly intact. Distal sensation intact. Mental Status: Awake, alert and oriented x3. Follows commands Course Vital Signs Vital signs: Vital Signs Temperature 36.4 C 04/30/24 13:17 Pulse Rate 63 04/30/24 13:17 Respiratory Rate 16 04/30/24 13:17 Blood Pressure 128/82 04/30/24 13:17 Pulse Oximetry 100 04/30/24 13:17 Temperature 36.4 C 04/30/24 13:17 Pulse Rate 63 04/30/24 13:17 Respiratory Rate 16 04/30/24 13:17 Blood Pressure 128/82 04/30/24 13:17 Pulse Oximetry 100 04/30/24 13:17 MDM - Skin/Abscess/Foreign Bdy MDM Narrative Medical decision making narrative: Exam consistent with looks like probably paronychia developing a mild cellulitis. Paronychia does not appear amenable to drainage patient does not currently want that, she wants antibiotics at this point. Will treat her with clindamycin number follow-up with PCP return for new or worsening symptoms. Discussed that if this continues the, it may require incision and drainage. Pt feeling improved and would like to go home at this point. Return precautions were given to the patient include any new or worsening symptoms or development of and not limited to any chest pain, shortness of breath, lightheadedness, abdominal pain, fevers, chills. Patient understands and agrees. They are to follow-up with her PCP. All questions were answered. I reviewed the patient's vital signs, history, allergies, and labs and imaging workup. Discharge Plan Discharge Clinical Impression: Paronychia, Cellulitis and abscess of finger, unspecified Patient Disposition: Home, Self-Care Condition: Stable Instructions: Antibiotic Form, Paronychia (ED), Cellulitis (ED) Prescriptions: New clindamycin HCl 300 mg capsule 300 mg PO Q8H 7 Days Qty: 21 0RF No Action hydrocodone-acetaminophen 5-325 mg tablet 1 tablet PO Q4H PRN (Reason: pain) Qty: 30 0RF Follow-up/Referrals: Vadim,KATARZYNA Lange [Primary Care Provider] - Time of Disposition: 14:54
[2024-04-30 15:16] VITALS: BP 142/80; PULSE 80; RESP 16; TEMP 36.6; O2SAT 100
== END 2024-04-30 15:18 | disposition home or self-care (01) ==
LOC: ANHED 14:58
PROVIDERS: Emergency Provider Emergency Medicine; PCP Physician Assistant
DX: L03.012 Cellulitis of left finger (principal); L02.512 Cutaneous abscess of left hand; Z85.41 Personal history of malignant neoplasm of cervix uteri
CPT/HCPCS: 99283

== ENCOUNTER 2024-07-06 11:38 | Outpatient (CLI) | payer OTHER, SELFPAY ==
--- NOTE | ~2024-07-06 | US_ITS ---
Left thumb ULTRASOUND Ordering provider: Radha Tao MD History: . eval left thumb mass solid vs ganglion cyst . Comparison: None. FINDINGS impression: Hypoechoic area measures 1 x 0.4 x 0.5 cm seen with vascularity. Differential in clude complex ganglion cyst, Giant cell tumor of the tendon sheath, glomus tumor and a hemangioma. Fu rther evaluation and Follow-up advised. Reviewed, dictated and finalized at location A. AND BACK FORGER
--- NOTE | ~2024-07-06 | XR_ITS ---
EXAMINATION: XR finger 1st LT min 2V DATE: 07/06/2024 11:59 INDICATION: Localized swelling, mass or lump at the left thumb TECHNIQUE: Dorsal palmar, lateral and oblique views of the left first digit were obtained COMPARISON: None FINDINGS: Bone alignment is normal. Large expansile lytic lesion involving the majority of the tuft and midport ion of the distal phalanx of the left first digit. There are sharply defined sclerotic margins but al so loss of any discernible cortex along the distal and ulnar margins of the lesion. Subtle calcific d ensity is seen within the soft tissues peripheral to the expected peripheral margins of the lost bone which could represent either calcified matrix, dystrophic calcification or residual cortical bone fr agments. Visualized joint spaces are normal. No other erosions or lytic lesions identified. IMPRESSION: 1. Indeterminate large expansile lytic lesion involving the majority of the mid to distal aspect of t he left first distal phalanx which could be either benign or malignant. There is a wide differential including enchondroma, keratoacanthoma, epidermoid inclusion cyst, glomus tumor, osteomyelitis, gout, and sarcoidosis as well as malignant etiologies such as chondrosarcoma, osteosarcoma or metastatic d isease. Reviewed, dictated and finalized at location B. DENTIAL FEE APPRAISER IMPRESSION: 1. Indeterminate large expansile lytic lesion involving the majority of the mid to distal aspect of the left first distal phalanx which could be either benign or malignant. There is a wide differential including enchondroma, keratoacanth raz, epidermoid inclusion cyst, glomus tumor, osteomyelitis, gout, and sarcoido sis as well as malignant etiologies such as chondrosarcoma, osteosarcoma or met astatic disease.
== END 2024-07-06 11:39 | disposition home or self-care (01) ==
PROVIDERS: PCP Physician Assistant; Visit Provider Plastic Surgery
DX: R22.32 Localized swelling, mass and lump, left upper limb (principal)
CPT/HCPCS: 73140; 76882

== ENCOUNTER 2024-07-08 08:55 | Day surgery (SDC) | payer OTHER, SELFPAY ==
[2024-07-07 14:20] VITALS: BMI 31.3
--- NOTE | 2024-07-08 07:01 | WPDHPUPDATE1 ---
History and Physical Update Update Date/Time: 07/08/24 07:01 Patient seen and examined in pre-operative holding area. No interval change in medical history or symptoms. Patient recalls previous discussion of benefits and alternatives to procedure. Continues to desire to proceed with left thumb mass excision. Reviewed procedure, post-op expectations and risks including but not limited to bleeding, infection, injury to tendon/nerve/vessel, decreased hand function, stiffness, RSD, no change or worsening of symptoms, recurrence, incomplete excision, need for further procedures. I discussed the possible use of assistants and their participation in the case. Patient stated understanding and signed the consent form wishing to proceed.
--- NOTE | 2024-07-08 07:02 | P.OP_ITS ---
Procedure Note - Detailed Date of Procedure 07/08/24 Pre-op Diagnosis Mass Left Thumb Post-op Diagnosis Same Procedure Performed radical excision left thumb mass Surgeon Radha Tao MD Anesthesia MAC Description of Procedure INFORMED CONSENT: The patient was seen and examined and marked in the pre-op ar ea.? The patient signed the consent form. PROCEDURE IN DETAIL:The patient taken back to OR on the stretcher in supine position. Time out performed with anesthesia, surgeon and staff agreeing on patient's name site and surgery to be performed SCDs were placed on the lower extremities and inflated. A tourniquet was placed on {left} upper extremity and antibiotics given IV After anesthesia administered sedation I injected {5}cc 1%lido and 0.5% marcaine plain for digital block in the palm The?{left upper extremity}?was prepped and draped in sterile fashion the??{left upper extremity} was? exsanguinated proximal to the masswith Esmarch bandage and tourniquet inflated to 250mmHg I proceeded with making an elliptical incision over the affected and excess tissue over the mass through skin and dermis with a 15 blade scalpel. Littler scissors were used to spread through subcutaneous tissue down to the mass. The anatomy was distorted from mass effect and the neurovascular bundle appeare d very thin and atrophic during the resection but all attempts were made to preserve as much of this abnormal appearing tissue as possible. I proceeded with circumferential dissection of this mass that abutted and was eroded into, but didn't appear significantly attached to the distal phalanx or originating from it. The mass was excised off of the remnant of the distal phalanx. The distal phalanx was curetted along the resection margin. Bipolar cautery was used to cauterize the base of the resection as well. I irrigated with normal saline and closed with 4-0 chromic. A dressing of Dermabond, 4x4, roslyn, and a volar splint was applied for patient safety, security, and comfort and secured with an margy bandage after the tourniquet was let down noting the hand was warm and well perfused. The patient was then awaken from anesthesia and transferred to the recovery room in stable condition.? Complications - none EBL- 0cc Disposition - home in stable conditions Larry Fermin PA-C was essential for positioning, retraction, closure and dressing placement [facility] Billing Surgery - Charge Forward: Surgery Billing ([id number] for larry)
[2024-07-08 10:02] VITALS: BP 131/94; PULSE 84; RESP 16; TEMP 37.1; O2SAT 100
--- NOTE | 2024-07-08 10:35 | WPDANESEPPF ---
Anes - Initial Pre Proc Eval Procedure: Operation Date: 07/08/24 11:15 Proposed Procedures p Excision Mass Left Thumb - Radha Tao MD Date/Time: 07/08/24 10:35 Surgeon: Radha Tao MD Pre Op Diagnosis: Mass Left Thumb Patient Data Age: 39 Gender: F Height: 1.6 m Weight: 77.1 kg Last Vital Signs Temp 37.1 C 07/08/24 10:02 Pulse 84 07/08/24 10:02 Resp 16 07/08/24 10:02 BP 131/94 H 07/08/24 10:02 Pulse Ox 100 07/08/24 10:02 O2 Del Method Room Air 07/08/24 10:02 Allergies Allergy/AdvReac Type Severity Reaction Status Date / Time No Known Allergies Allergy Verified 07/08/24 10:01 Home Medications ?Medication ?Instructions ?Recorded ?Confirmed ?Type atorvastatin 40 mg tablet 40 mg PO QPM 07/07/24 07/08/24 History pantoprazole 20 mg tablet,delayed 20 mg PO Q12H 07/07/24 07/08/24 History release cephalexin 500 mg capsule 500 mg PO Q8H #21 caps 07/08/24 Rx tramadol 50 mg tablet 50 mg PO Q6H PRN pain #12 tabs 07/08/24 Rx Patient hx anesthesia problems: none Family hx anesthesia problems: none Results Review: All pre-operative results and documents have been reviewed as part of the pre-operative evaluation. [facility] Past Medical History Medical History History of cervical cancer Surgical History Surgical History H/O: hysterectomy Social History Social History Smoking status: Never smoker Second hand tobacco smoke exposure: No Alcohol intake: never Substance use: never Substance use type: does not use Living arrangements: with family Spiritual care concerns: No Anes - Eval Final PreProcedure Day of Procedure 07/08/24 10:35 Patient weight: obese Heart: regular rate and rhythm Lungs: clear to auscultation Airway: Mallampati scale class II Neurological: alert and oriented Last oral intake: >/= 8 hours ASA classification: III Emergent: no Anesthetic plan: proceed Anesthesia type and monitoring: general GIVS and standard monitoring Results Review: All pre-operative results and documents have been reviewed as part of the pre-operative evaluation. Informed Consent: The patient's anesthetic plan and its attendant risks and benefits were discussed with the patient/family/POA. Questions were solicited and answers provided to the satisfaction of the patient/family/POA.
[2024-07-08] MEDS: LACTATED RINGERS 1,000 ML 30 ML IV CONT (10:39)
[2024-07-08] MEDS: ceFAZolin SODIUM 2 GM/20 ML SW SYRINGE IV PUSH (10:44)
[2024-07-08] MEDS: BUPivacaine HCL 0.5% PF 30 ML VIAL INFILTRATE (11:11)
[2024-07-08] MEDS: LIDOCAINE 1% LOCAL INJ 10 ML VIAL INFILTRATE (11:12)
[2024-07-08 11:17] VITALS: BP 142/80; PULSE 100; RESP 14; O2SAT 97
--- NOTE | 2024-07-08 11:41 | WPDANESPN ---
Anes - Prog Note Post-Op Date/Time: 07/08/24 11:41 Cardiovascular status: normal Respiratory status: normal Airway patency: baseline Mental status: baseline Post-Op hydration status: normal Vital Signs: Last Vital Signs Temp 37.1 C 07/08/24 10:02 Pulse 100 07/08/24 11:17 Resp 14 07/08/24 11:17 BP 142/80 H 07/08/24 11:17 Pulse Ox 97 07/08/24 11:17 O2 Del Method Room Air 07/08/24 11:17 Pain Score (VAS): 0 Patient Feedback: Patient satisfied with anesthetic care.
[2024-07-08 11:45] VITALS: BP 153/92; PULSE 99; RESP 16; O2SAT 99
[2024-07-08] MEDS: oxyCODONE HCL (*CRX) 5 MG TAB IR PO (11:45)
[2024-07-08] MEDS: ONDANSETRON INJ 4 MG/2 ML VIAL IV PUSH (12:11)
[2024-07-08 12:15] VITALS: BP 159/93; PULSE 87; RESP 16; O2SAT 97
[2024-07-08 12:35] VITALS: BP 155/92; PULSE 79; RESP 16; O2SAT 98
--- OUTSIDE RECORDS SUMMARY | 2024-07-15 02:17 | XMS_ITS | Data Portability ---
Author Organization [employer], [facility] Address [address] [place] [address] Assessment No assessment recorded. Plan of Treatment Reminders Order Date Submit Date Provider Last Modified By Organization Details Last Modified Time Details Appointments None record ed. Lab None record ed. Referral None record ed. Procedures None record ed. Surgeries None record ed. Imaging None record ed. Medication Orders None record ed. Patient TargetsNo targets recorded. Patient InstructionsNo instructions recorded. Reason for Referral None Reported. Procedures Surgical History Date Name Laterality Status Provider Name and Address Organization Details Recorded Time Endometrial Ablation completed Ramila Giovani [employer] 01/23/2023 14:46:39 ligation of bilateral fallopian tubes completed [employer] 01/23/2023 14:57:45 Imaging Results None recorded. Procedure Notes None recorded. Medical Equipment None Reported. Allergies No known drug allergies Medications Name Sig Start Date Stop Date Status Note LastModified by Organization Details LastModified Time prednisone 20 mg tablet TAKE 2 TABLETS BY MOUTH DAILY FOR 5 DAYS 01/23 completed Not Available Not Available Not Available cephalexin 500 mg capsule TAKE 1 CAPSULE BY MOUTH EVERY 6 HOURS FOR 5 DAYS 2022 active Not Available Not Available Not Avai lable albuterol sulfate HFA 90 mcg/actuati on aerosol inhaler INHALE 2 PUFFS BY MOUTH EVERY 4 TO 6 HOURS NEEDED FOR SHORTNESS OF BREATH OR WHEEZING active Not Available Not Available No t Available amoxicillin 875 mg-potassiu m clavulanate 125 mg tablet TAKE 1 TABLET BY MOUTH EVERY 12 HOURS FOR 10 DAYS 01/23 completed Not Available Not Available Not Available nitrofurant oin monohydrate /macrocryst als 100 mg capsule TAKE 1 CAPSULE BY MOUTH EVERY 12 HOURS FOR 10 DAYS 01/23 completed Not Available Not Available Not Available Vitals Date Recorded Body height Provider Name an d Address Organization Details Last Updated DateTime 01/23/2023 160.02 cm Ramila Matute [facility] 01/23/2023 14:48:22 Date Recorded Body mass index (BMI) Body weight Provider Name and Address Organization Details Last Updated DateTime 01/23/2023 31.5 kg/m2 75570 g Ramila Matute [facility] 01/23/2023 14:56:59 Date Recorded Body temperature Provider Name a nd Address Organization Details Last Updated DateTime 01/23/2023 97.2 [degF] Ramila Matute [facility] [facility] 01/23/2023 14:57:01 Date Recorded Systolic blood pressure Diastolic blood pressure Provider Name and Address Organization Details Last Updated DateTime 01/23/2023 122 mm[Hg] 80 mm[Hg] Ramila [facility]ute [facility] 01/23/2023 14:57:05 Social History Question Answer Notes LastModified by Organizat ion Details LastModified Time Tobacco Smoking Status Never Smoker Ramila Matute [facility] 01/23/2023 14:46:39 What Is Your Level Of Alcohol Consumption? Occasional Information not available 01/23/2023 Do You Or Have You Ever Used E-cigarettes Or Vape? Never Used Electronic Cigarettes Information not available 01/23/2023 What Is Your Relationship Status? Single Information not available 01/23/2023 Are You Sexually Active? Yes Information not available 01/23/2023 Sex: Unknown Functional Status Question Answer Note LastModified by Organization D etails LastModified Time What is your exercise level? Moderate Information not available 01/23/2023 Mental Status None recorded. Family History Relationship Description Onset Age of this Age Resolved Age Notes LastModified by Organization Details LastModified Time Father Depressive disorder Not available 08/2022 14:46:38 Father Hypertensive disorder Not available 08/2022 14:46:38 Paternal Grandmother Myocardial infarction Not available 08/2022 14:46:38 Paternal Grandmother Hypertensive disorder Not available 08/2022 14:46:38 Paternal Grandmother Heart disease Not available 08/2022 14:46:38 Paternal Grandmother Uterine leiomyoma Not available 08/2022 14:46:38 Unspecified Relation Hypercholest erolemia Not available 08/2022 14:46:38 Maternal Grandmother Myocardial infarction Not available 08/2022 14:46:38 Maternal Grandmother Hypertensive disorder Not available 08/2022 14:46:38 Maternal Grandmother Heart disease Not available 08/2022 14:46:38 Maternal Grandmother Uterine leiomyoma Not available 08/2022 14:46:38 Maternal Grandfather Myocardial infarction Not available 08/2022 14:46:38 Maternal Grandfather Hypertensive disorder Not available 08/2022 14:46:38 Maternal Grandfather Heart disease Not available 08/2022 14:46:38 Paternal Grandfather Myocardial infarction Not available 08/2022 14:46:38 Paternal Grandfather Hypertensive disorder Not available 08/2022 14:46:38 Paternal Grandfather Heart disease Not available 08/2022 14:46:38 Medical History Condition Response High Blood Pressure Y Diabetes Mellitus (during ) Y History of Abnormal Pap Y Fibroids Y High Cholesterol Y Cervical Cancer Y Headaches/migraines Y Seasonal allergies Y Gynecological History Statement/Question Response Current Control Method Hysterectom y Age at Menarche 11 Date of LMP 03/07/2010 Obstetrics History GPAL:G 3 P 0 2 1 0 Type Value Spontaneous 1 Premature 2 Total 3 Past Encounters Encounter ID Performer Location Encounter Start Date Encounter Closed Date Diagnosis/Indication Diagnosis SNOMED-CT Code Diagnosis ICD10 Code Diagnosis Note [id number] Hermes Abarca DO [facility] [address] [place] [address] 01/23/2023 14:34:51 01/23/2023 15:58:50 Pain in pelvis 73576015 R10.2 h/o surgery - possible ablation at [place]- will get records - or for ultrasound Health Concerns Section Related Observation LastModified by Organization Detai ls LastModified Time None Recorded Concern Status LastModified by Organization Details LastModified Time None Recorded Advance Directives Directive None Recorded Payers Encounter Date Sequence Insurance Name Policy Number Policy Cordova Covered Member ID Cordova Member ID Guarantor Name 01/23/2023 1 [facility] - DOS ON OR AFTER 20 (MEDICAID REPLACEMENT - HMO) Roderick Briseno [id number] Roderick Briseno Notes Date Note Type Note Provider Name and Address Organization Details Recorded Time 01/23/2023 text/html pt is ER follow up. Went in for heavy bleeding lasting a week. Hasn't had a cycle since 2009. Had CT scan on 01/07/2023 and showed fibroids. History of cervical cancer in 2009. Pelvis: Heterogeneous mass of the uterine fundus measures 3.5 cm. Fluidattenuation mass of the left uterine fundus near the cornu measures 13 mm.There is dilatation of the left fallopian tube. No obvious ovarian mass. ct results. Hermes Abarca, DO [address] [facility], [place], [address], [facility] - [employer] [facility] 01/23/2023 15:42:26 OBGyn Episode No OBEpisode recorded.
--- OUTSIDE RECORDS SUMMARY | 2024-07-15 02:17 | XMS_ITS | CONTINUITY OF CARE DOCUMENT ---
Author Name dallin zamarripa Address Unknown Organization [facility] Address [address] [facility] [place] [address] Phone [phone] Care Team Providers Care Senior Clinical Study Manager Name Role Phone Cody WHITAKER, Robert Unavailable [phone] Robert Ross MD Unavailable [phone] INSURANCE PROVIDERS Payer name Policy type / Coverage type Danny red green party ID JAYLAN MEDICAID (2) Medicaid [id number]
--- OUTSIDE RECORDS SUMMARY | 2024-07-15 02:17 | XMS_ITS | Continuity of Care Document ---
Author Organization [facility] Address [address] [place] [address] Phone Care Team Providers Care Switch Engineer Name Role Phone Goel OD, Dylan Unavailable Unavailable Procedures Procedure Date Eye Exam Established Pt Advance Directives Directive Yes / No Effective Date File Name No Information Encounters Encounter Description Practice Location Reason(s) For Visit Diagnoses Date Provider Providers Copied on Encounter [facility], [address], [place], [place], [id number], [place] tel:[phone] [facility] No Information 2-200 8 Goel OD Dylan. [address] , [address], [place], [address], [place]. tel:[phone] Family History Family Member Type Diagnosis Age At Onset No Information Payers Payer name Insurance type Covered constitution party ID Authoriza tion(s) Medicaid [facility] [id number] Social History Type Description Quantity Date Captured Comments Sex Female Smoking Status No Information Chief Complaint And Reason For Visit No Information Reason For Referral Reason For Referral No Information History Of Present Illness Encounter Date Complaint History Of Prese nt Illness No Information Functional Status Date Functional Assessmen t No Information Instructions Date Instruction Additional Infor mation No Information Assessments Type Assessment Date No Information Patient Care Teams Name Effective Dates (start - stop) Status Members No Information
--- OUTSIDE RECORDS SUMMARY | 2024-07-15 02:17 | XMS_ITS | Clinical Summary ---
Author Organization [facility] Address [address] [place] [address]. [place], [place] [id number] [place] [address] Care Team Providers Care Casino Enforcement Agent Name Role Phone Anisa Fierro PA-C Primary Care Provider [phone] Allergies No known active allergies Medications No known medications Encounters Date Type Department Care Team Description 06/24/2024 10:57 AM [employer] [employer] - 06/24/2024 11:12 AM [facility] Emergency [facility] [place] [address] Fabien Lopez PA-C Finger Swelling Discharge Disposition: Home or Self Care (Routine Discharge) 06/24/2024 Travel from Last 3 Months Social History Tobacco Use Types Packs/Day Years Used Date Smoking Tobacco: Never Smokeless Tobacco: Never Tobacco Cessation:Counseling Given: Not Answered Alcohol Use Standard Drinks/Week Comments Yes 1 (1 standard drink = 0.6 oz pur e alcohol) Comments No Sex and Gender Information Value Date Recorded Sex Assigned at Not on file Legal Sex Female 10:24 AM CDT Gender Identity Not on file Sexual Orientation Not on file Last Filed Vital Signs Vital Sign Reading Time Taken Comments Blood Pressure 146/96 06/24/2024 10:36 AM [employer] Pulse 73 06/24/2024 10:36 AM [employer] Temperature 36.9 ??C (98.5 ??F) 06/24/2024 10:[address] Respiratory Rate 20 06/24/2024 10:36 AM [employer] Oxygen Saturation 100% 06/24/2024 10:36 AM [employer] Inhaled Oxygen Concentration - - Weight 80.5 kg (177 lb 7.5 oz) 06/24/2024 10:36 AM [employer] Height 160 cm (5' 3 ) 06/24/2024 10:36 AM [employer] Body Mass Index 31.44 06/24/2024 10:36 AM [employer] Plan of Treatment Health Maintenance Due Date Last Done Comments Cervical Cancer Screening Pap Smear (Age 30 to 64) Every 3 Years 1983 Annual Physical 1986 DTaP, Tdap and Td Vaccines (5 - Tdap) 1994 12/31/1993, 04/30/1989, 01/23/1989, Additional history exists Hepatitis C 2001 Cervical Cancer Screening Pap with HPV Testing (Age 30 to 64) Every 5 Years 2013 Cervical Cancer Screening with HPV 2013 Mammogram Screening 2023 COVID-19 Vaccine ( - season) 2024 05/20/2022, 04/27/2021, 10/13/2020, Additional history exists Influenza Adult (#1) 2024 Hepatitis B Vaccines Completed 05/26/1998, 02/10/1998, 12/09/1997 HPV Vaccines Aged Out No longer eligi ble based on patient's age to complete this topic Meningococcal Vaccine Aged Out No jackson betty eligible based on patient's age to complete this topic Pneumococcal Vaccine: Pediatrics (0 to 5 Years) and At-Risk Patients (6 to 64 Years) Aged Out No longer eligible based on patient's age to complete this topic RSV Immunizations Under 20 Months Aged Out No longer eligible based on patient's age to complete this topic Insurance MERIDIAN Care Teams Casino Enforcement Agent Relationship Specialty Start Date End Date Anisa Fierro PA-C [address] [place] [phone] PCP - General PHYSICIAN RING STAMPER 06/24/24
== END 2024-07-08 12:47 | disposition home or self-care (01) ==
LOC: ASC 09:47
PROVIDERS: PCP Physician Assistant; Visit Provider Plastic Surgery
PROC: (CPT 26117; principal; 2024-07-08 11:15)
DX: D48.7 Neoplasm of uncertain behavior of other specified sites (principal)
CPT/HCPCS: 26117

== ENCOUNTER 2024-07-30 09:25 | Outpatient (CLI) | payer OTHER, SELFPAY ==
--- NOTE | ~2024-07-30 | XR_ITS ---
EXAMINATION: XR finger 1st LT min 2V DATE: 07/30/2024 10:01 INDICATION: Postresection of a mass at the distal phalanx of the left thumb. TECHNIQUE: Dorsal palmar, lateral and oblique views of the left first digit were obtained COMPARISON: None FINDINGS: Abnormal contour to the skin consistent with a surgical wound at the distal tip of the first distal p halanx. The prior amorphous masslike region of increased density in the palmar soft tissues is no jackson betty visualized consistent with interval resection of the mass. No significant interval change in the erosive changes seen along the mid to distal aspect of the first distal phalanx. No fractures identif ied. Visualized joint spaces are normal. IMPRESSION: 1. Interval resection of a masslike region of subtly increased density from the palmar aspect of the left first distal phalanx with nonspecific change in a large adjacent erosion involving the mid to di stal aspect of the left first distal phalanx. Correlate with procedure note and pathology from the re sected specimen. Reviewed, dictated and finalized at location B. [facility] CREAT[facility] CONTENT MARKETING IMPRESSION: 1. Interval resection of a masslike region of subtly increased density from the palmar aspect of the left first distal phalanx with nonspecific change in a la rge adjacent erosion involving the mid to distal aspect of the left first dista l phalanx. Correlate with procedure note and pathology from the resected specim en.
--- OUTSIDE RECORDS SUMMARY | 2024-07-30 10:04 | XMS_ITS | CONTINUITY OF CARE DOCUMENT ---
Author Name dallin zamarripa Address Unknown Organization [facility] Address [address] [place] [address] Phone [phone] Care Team Providers Care Import Coordinator Name Role Phone Cody WHITAKER, Robert Unavailable [phone] Robert Ross MD Unavailable [phone] INSURANCE PROVIDERS Payer name Policy type / Coverage type Danny red democrat ID JAYLAN MEDICAID (2) Medicaid [id number]
--- OUTSIDE RECORDS SUMMARY | 2024-07-30 10:04 | XMS_ITS | Data Portability ---
Author Organization [facility], [facility] Address [address] [place] [address] Assessment No assessment recorded. Plan of Treatment [...] Recorded Time Endometrial Ablation completed Ramila Giovani [facility] 01/23/2023 14:46:39 ligation of bilateral fallopian tubes completed [facility] 01/23/2023 14:57:45 Imaging Results None recorded. Procedure [...] Not Available Vitals Date Recorded Body height Body mass index (BMI) Body weight Body temperature Systolic blood pressure Diastolic blood pressure Provider Name and Address Organization Details Last Updated DateTime 160.02 cm 31.5 kg/m2 34774 g 97.2 [degF] 122 mm[Hg] 80 mm[Hg] Ramila Matute [facility] 14:57:05 Social History Question Answer Notes LastModified by Organizat ion Details LastModified Time Tobacco Smoking Status Never Smoker Ramila Matute abilio, [facility] 01/23/2023 14:46:39 What Is Your Level [...] SNOMED-CT Code Diagnosis ICD10 Code Diagnosis Note [id number] Hermes Abarca DO [facility] [address] [place] [address] 01/23/2023 14:34:51 01/23/2023 15:58:50 Pain in pelvis 55597685 R10.2 h/o surgery - possible ablation at [place]- will get records - [place] for ultrasound Health Concerns Section Related Observation LastModified by Organization [place] ls LastModified Time None Recorded Concern Status LastModified by Organization Details LastModified Time None Recorded Advance Directives Directive None Recorded Payers Encounter Date Sequence Insurance Name Policy Number Policy Cordova Covered Member ID Cordova Member ID Guarantor Name 01/23/2023 1 [facility] - DOS ON OR AFTER 20 (MEDICAID REPLACEMENT - HMO) Roderick Briseno [id number] Roderick Briseno Notes Date Note Type Note [...] ovarian mass. ct results. Hermes Abarca, DO [facility] [facility], [place], [address], [facility] 01/23/2023 15:42:26 OBGyn Episode No OBEpisode recorded.
--- OUTSIDE RECORDS SUMMARY | 2024-07-30 10:04 | XMS_ITS | Encounter Summary ---
Author Organization [facility] Address [address] [place] [address] Care Team Providers Care Rubber Cutter And Shape Carver Name Role Phone Unavailable Primary Care Provider Unavailabl e Encounter Details Date Type Department Care Team (Late st Contact Info) Description 07/13/2024 Lab Requisition [facility] - Pathology Lab [address] [place] [id number] Catrachito Schroeder MD [address] [address] Illness, unspecified Social History Tobacco Use Types Packs/Day Years Used Date Smoking Tobacco: Never Assessed Sex and Gender Information Value Date Recorded Sex Assigned at Not on file Gender Identity Not on file Sexual Orientation Not on file documented as of this encounter Plan of Treatment Pending Results Name Type Priority Associated Diagnoses Date /Time PATHOLOGY TISSUE Pathology Cytology Routine Illness, unspecified 07/06/2024 11:59 AM VEHICLE COST ENGINEER documented as of this encounter Visit Diagnoses Diagnosis Illness, unspecified documented in this encounter
--- OUTSIDE RECORDS SUMMARY | 2024-07-30 10:05 | XMS_ITS | Clinical Summary ---
Author Organization [facility] Address [address] [place] [address] Care Team Providers Care Entry Level Account Manager Name Role Phone Anisa Fierro PA-C Primary Care Provider [phone] Allergies No known active allergies Medications No known medications Encounters Date Type Department Care Team Description 06/24/2024 10:57 AM CIGARETTE BOOK MAKER - 06/24/2024 11:12 AM CIGARETTE BOOK MAKER Emergency [facility] [place] [address] Fabien Lopez PA-C Finger Swelling Discharge Disposition: [...] Comments Blood Pressure 146/96 06/24/2024 10:36 AM CIGARETTE BOOK MAKER Pulse 73 06/24/2024 10:36 AM CIGARETTE BOOK MAKER Temperature 36.9 C (98.5 F) 06/24/2024 10:36 AM CIGARETTE BOOK MAKER Respiratory Rate 20 06/24/2024 10:36 AM CIGARETTE BOOK MAKER Oxygen Saturation 100% 06/24/2024 10:36 AM CIGARETTE BOOK MAKER Inhaled Oxygen Concentration - - Weight 80.5 kg (177 lb 7.5 oz) 06/24/2024 10:36 AM CIGARETTE BOOK MAKER Height 160 cm (5' 3 ) 06/24/2024 10:36 AM CIGARETTE BOOK MAKER Body Mass Index 31.44 06/24/2024 10:36 AM CIGARETTE BOOK MAKER Plan of Treatment Health Maintenance Due Date [...] 2013 Mammogram Screening 2023 COVID-19 Vaccine ( season) 2024 05/20/2022, 04/27/2021, 10/13/2020, Additional history exists Influenza Adult (#1) 2024 Hepatitis B Vaccines Completed 05/26/1998, 02/10/1998, 12/09/1997 HPV Vaccines Aged Out No longer eligi ble based on patient's age to complete this topic Meningococcal B Vaccine Aged Out No l onger eligible based on patient's age to complete [...] patient's age to complete this topic Insurance [employer] Care Teams Entry Level Account Manager Relationship Specialty Start Date End Date Anisa Fierro PA-C [address] [place] [phone] PCP - General PHYSICIAN TIER IN 06/24/24
--- OUTSIDE RECORDS SUMMARY | 2024-07-30 10:05 | XMS_ITS | Referral Summary ---
Author Organization [facility] Address [address] [place] [place] [address] Care Team Providers Care Aquatic Scientist Name Role Phone Unavailable Primary Care Provider Unavailabl e Source Comments [facility],non-owned Affiliates and Associated Physician Practices is amultiple site organization consisting of ambulatory clinics and hospital sitesin [place], [place], [place] and [place]. This disclosure is being madepursuant to the Care Everywhere program and may not contain all information available regarding this patient. Last updated 18.[facility] Encounters Date Type Department Care Team Description 07/13/2024 Lab Requisition [facility] - Pathology Lab [address] [place] [phone] Catrachito Schroeder MD Illness, unspecified from Last 3 Months Social History Tobacco Use Types Packs/Day Years Used Date Smoking Tobacco: Never Assessed Sex and Gender Information Value Date Recorded Sex Assigned at Not on file Gender Identity Not on file Sexual Orientation Not on file Plan of Treatment Not on file ELLA BRISENO Personal/Family Spouse [address] [address]
--- OUTSIDE RECORDS SUMMARY | 2024-07-30 10:05 | XMS_ITS | Continuity of Care Document ---
Author Organization [facility] Address [address] [place] [address] Phone Care Team Providers Care Nurse Reviewer Name Role Phone Goel OD, Dylan Unavailable Unavailable Procedures Procedure Date Eye Exam Established Pt Advance Directives Directive Yes / No Effective Date File Name No Information Encounters Encounter Description Practice Location Reason(s) For Visit Diagnoses Date Provider Providers Copied on Encounter [facility], [address], [place], [place], [id number], [place] tel:[phone] [facility] No Information 2-200 8 Goel OD Dylan. [address] , [address], [place], [address], [place]. tel:[phone] Family History Family Member Type Diagnosis Age At Onset No Information Payers Payer name Insurance type Covered republican ID Authoriza tion(s) Medicaid [facility] [id number] Social History Type Description Quantity Date Captured [...]
--- OUTSIDE RECORDS SUMMARY | 2024-07-30 10:06 | XMS_ITS | Clinical Summary ---
Author Organization [facility] Address [address] [place] [address] Care Team Providers Care Paint Spraying Machine Operator Helper Name Role Phone Unavailable Primary Care Provider Unavailabl e Source Comments [facility],non-owned Affiliates and Associated Physician Practices is amultiple site organization consisting of ambulatory clinics and hospital sitesin [place], [place], [place] and [place]. This disclosure is being madepursuant to the Care Everywhere program and may not contain all information available regarding this patient. Last updated 18.[facility] Encounters Date Type Department Care Team Description 07/13/2024 Lab Requisition [facility] - Pathology Lab [address] [place] [address] Catrachito Schroeder MD Illness, unspecified from Last 3 Months Social History Tobacco Use Types Packs/Day Years Used Date Smoking Tobacco: Never Assessed Sex and Gender Information Value Date Recorded Sex Assigned at Not on file Gender Identity Not on file Sexual Orientation Not on file Plan of Treatment Health Maintenance Due Date Last Done Comments LIPID TESTING 1983 MAMMOGRAM 1983 PAP SMEAR 1983 HIV SCREENING 1998 HEPATITIS C SCREENING 07/03/2001 DTAP/TDAP/TD VACCINES (1 - Tdap) 2002 HEPATITIS B VACCINE (1 of 3 - 19+ 3-dose series) 2002 COVID-19 VACCINE ( - 2023-2 5 season) 2024 INFLUENZA VACCINE (#1) 2024 DEPRESSION SCREENING 06/23/2024 ZOSTER VACCINE (1 of 2) 2033 HIB VACCINE Aged Out No longer eligi ble based on patient's age to complete this topic HPV VACCINE Aged Out No longer eligi ble based on patient's age to complete this topic MENINGOCOCCAL (Group B) VACCINE Aged Out No longer eligible based on patient's age to complete this topic MENINGOCOCCAL VACCINE Aged Out No jackson betty eligible based on patient's age to complete this topic PNEUMOCOCCAL VACCINE Aged Out No long er eligible based on patient's age to complete this topic
--- OUTSIDE RECORDS SUMMARY | 2024-07-30 10:06 | XMS_ITS | Patient Health Summary ---
Author Organization [facility] Address [address] [place] [address] Care Team Providers Care Counselor Aid Name Role Phone Unavailable Primary Care Provider Unavailabl e Note from [facility],non-owned Affiliates and Associated Physician Practices is amultiple site organization consisting of ambulatory clinics and hospital sitesin [place], [place], [place] and [place]. This disclosure is being madepursuant to the Care Everywhere program and may not contain all information available regarding this patient. Last updated 18.[facility] Social History Tobacco Use Types Packs/Day Years Used Date Smoking Tobacco: Never Assessed Sex and Gender Information Value Date Recorded Sex Assigned at Not on file Gender Identity Not on file Sexual Orientation Not on file
== END 2024-07-30 09:26 | disposition home or self-care (01) ==
PROVIDERS: PCP Physician Assistant; Visit Provider Physician Assistant Surgical
DX: R22.32 Localized swelling, mass and lump, left upper limb (principal)
CPT/HCPCS: 73140

== ENCOUNTER 2024-08-30 08:39 | Outpatient (CLI) | payer OTHER, SELFPAY ==
--- NOTE | ~2024-08-30 | XR_ITS ---
XR finger 1st LT min 2V Ordering provider: Glo Fermin PA-C History: . POST EXCUSION OF NON CANECEROUS MASS JUNE 2024 . Comparison: July 30, 2024 FINDINGS: BONES: No acute fracture or dislocation. Status post surgical resection of the soft tissue mass seen previously in the area of the distal phalanx of the left thumb. Slight density in the soft tissues is noted. Erosive changes are seen in the distal phalanx JOINT SPACES: Normal. SOFT TISSUES: Normal. IMPRESSION: Postsurgical changes in the soft tissues of the distal phalanx of the left thumb. Possibility of slig htly increased density in the soft tissues is is not excluded. Unchanged erosive changes in the bones of the distal phalanx.. Reviewed, dictated and finalized at location A. IMPRESSION: Postsurgical changes in the soft tissues of the distal phalanx of the left thum b. Possibility of slightly increased density in the soft tissues is is not excl uded. Unchanged erosive changes in the bones of the distal phalanx..
--- OUTSIDE RECORDS SUMMARY | 2024-08-30 09:15 | XMS_ITS | CONTINUITY OF CARE DOCUMENT ---
Author Name dallin zamarripa Address Unknown Organization [facility] Address [address] [place] [address] Phone [phone] Care Team Providers Care Celery Packer Name Role Phone Cody WHITAKER, Robert Unavailable Robert Ross MD Unavailable [phone] INSURANCE PROVIDERS Payer name Policy type / Coverage type Danny red republican ID [employer]AY[employer] MEDICAID (2) Medicaid [id number]
--- OUTSIDE RECORDS SUMMARY | 2024-08-30 09:15 | XMS_ITS | Continuity of Care Document ---
Author Organization [facility] Address [address] [place] [address] Phone Care Team Providers Care Pick Up Worker Name Role Phone Goel OD, Dylan Unavailable Unavailable Procedures Procedure Date Eye Exam Established Pt Advance Directives Directive Yes / No Effective Date File Name No Information Encounters Encounter Description Practice Location Reason(s) For Visit Diagnoses Date Provider Providers Copied on Encounter [facility], [address], [place], [place], [id number], [place] tel:[phone] [address] [facility] No Information 2-200 8 Goel OD Dylan. [address], [place], [address], [place]. tel:[phone] Family History Family Member Type Diagnosis Age At Onset No Information Payers Payer name Insurance type Covered libertarian ID Authoriza tion(s) Medicaid [facility] [id number] Social History Type Description Quantity Date Captured [...]
--- OUTSIDE RECORDS SUMMARY | 2024-08-30 09:15 | XMS_ITS | Clinical Summary ---
Author Organization [facility] Address [address] [place] [address] Care Team Providers Care Supervisory Training Specialist Name Role Phone Anisa Fierro PA-C Primary Care Provider [phone] Allergies No known active allergies Medications No known medications Encounters Date Type Department Care Team Description 06/24/2024 10:57 AM CRYOLITE RECOVERY OPERATOR - 06/24/2024 11:12 AM CRYOLITE RECOVERY OPERATOR Emergency [facility] [place] [address] Fabien Lopez PA-C Finger Swelling Discharge Disposition: [...] Comments Blood Pressure 146/96 06/24/2024 10:36 AM CRYOLITE RECOVERY OPERATOR Pulse 73 06/24/2024 10:36 AM CRYOLITE RECOVERY OPERATOR Temperature 36.9 C (98.5 F) 06/24/2024 10:36 AM CRYOLITE RECOVERY OPERATOR Respiratory Rate 20 06/24/2024 10:36 AM CRYOLITE RECOVERY OPERATOR Oxygen Saturation 100% 06/24/2024 10:36 AM CRYOLITE RECOVERY OPERATOR Inhaled Oxygen Concentration - - Weight 80.5 kg (177 lb 7.5 oz) 06/24/2024 10:36 AM CRYOLITE RECOVERY OPERATOR Height 160 cm (5' 3 ) 06/24/2024 10:36 AM CRYOLITE RECOVERY OPERATOR Body Mass Index 31.44 06/24/2024 10:36 AM CRYOLITE RECOVERY OPERATOR Plan of Treatment Health Maintenance Due Date [...] patient's age to complete this topic Insurance [facility] Care Teams Supervisory Training Specialist Relationship Specialty Start Date End Date Anisa Fierro PA-C [address] [place] [phone] PCP - General PHYSICIAN SHANK PAPERER 06/24/24
--- OUTSIDE RECORDS SUMMARY | 2024-08-30 09:15 | XMS_ITS | Encounter Summary ---
Author Organization [facility] Address [address] [place] [address] Care Team Providers Care Whey Department Operator Name Role Phone Unavailable Primary Care Provider Unavailabl e Encounter Details Date Type Department Care Team (Late st Contact Info) Description 07/13/2024 Lab Requisition [facility] - Pathology Lab [address] [place] [phone] Catrachito Schroeder MD [address] [address] Illness, unspecified Social History Tobacco Use Types Packs/Day Years Used Date Smoking Tobacco: Never Assessed Sex and Gender Information Value Date Recorded Sex Assigned at Not on file Gender Identity Not on file Sexual Orientation Not on file documented as of this encounter Plan of Treatment Not on file documented as of this encounter Procedures Procedure Name Priority Date/Time Associated Diagnosis Comments PATHOLOGY TISSUE Routine 07/06/2024 11:5 9 AM MOLD CHANGER Illness, unspecified documented in this encounter Results * PATHOLOGY TISSUE (07/06/2024 11:59 AM MOLD CHANGER) Case Report Surgical Pathology Report Case: [id number] Authorizing Provider: Catrachito Schroeder MD Collected: 07/06/2024 11:59 AM Ordering Location: [facility] Physician [facility] - Received: 07/13/2024 01:32 PM Pathology Lab Pathologist: Sandi Mckay MD Specimen: Soft Tissue Mass, Left thumb 08/16/2024 2:57 PM MOLD CHANGER U PATHOLOGY LAB Final Diagnosis Left thumb mass, 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 The mass appears to be largely circumscribed, but it has at least one area where it has irregular extensions into the dermis. There is no obvious delicate bony periphery. The epidermis is uninvolved, and there are no fragments of trabecular bone. The bulk of the mass has moderately cellular tumor with plump to elongated spindle cells in a random architectural array. A few areas are markedly cellular. A few areas have round cells with ample cytoplasm. Osteoclast-like giant cells are focally common. There is a suggestion of possible osteoid and possible chondroid matrix, but most matrix is ordinary moderately dense collagen. There are extensive stippled / dust-like calcifications in a serpiginous distribution. No well-formed woven or trabecular bone is seen. There are up to 9 mitoses per 10 high power hudson (calculated 3.8 per mm2). Atypical mitotic figures are not seen. Nuclear pleomorphism ranges from minimal to moderate, with occasional large freeman-red nucleoli. The cytoplasm is moderate in amount. The H and E histology is not classic for any entity, but combines some of the features of many entities, and some of the features are mutually exclusive in individual entities. It is not even certain whether the tumor is of bone or of soft tissue origin. Tenosynovial giant cell tumor (benign or malignant), giant cell tumor of soft tissue, ossifying fibromyxoid tumor, myositis ossificans, fibroma of tendon sheath, chondroblastoma, metaplastic bone in another entity, osteosarcoma all have some features of interest, but the overall histologic pattern does not fit classic examples of any of these entities. It has aggressive features and therefore is worrisome. I suspect that the neoplasm will require molecular tests and immunohistologic stains not available locally. Therefore this case is being sent for review. The results of the consultation will be reported in an amended report. 08/16/2024 2:57 PM [facility] Clinical History The patient is a 38 year old woman. ([facility] accession number [id number], block A1). The patient has had left thumb pain and swelling for 5 months, and she had been given antibiotics without success. She has minimal history, with a reference to c ervical cancer but with a benign hysterectomy. On physical exam, the left thumb was not erythematous, was well perfused, and didn't have a sensory deficit. The ulnar aspect of the left thumb had a ~1.4 cm tender deep mass. The XR showed a large expansile lytic lesion involving the majority of the tuft and midportion of the distal phalanx, with loss of cortex on the distal and ulnar aspect, and with sharply defined sclerotic margins. Subtle calcifications were noted in the soft tissue beyond the original bounds of the bone. Ultrasound showed that the mass was hypoechoic (1.0 cm) and vascularized. The surgeon described the mass as abutting and eroding into the distal phalanx, but didn't think it was a ttached or o riginating from the phalanx. The mass was removed in fragments and the bone resection margin curetted. 08/16/2024 2:57 PM [facility] Gross Description The case is a primary diagnosis of tissue received and processed at [place], [place], their accession number [id number] (2024). Provided are a single H and E stained slide A1 , the corresponding block, and pathology identification and grossing paperwork. Also received are pertinent radiology reports and operative note. The specimen has not been decalcified. [facility] gross description: Received in formalin labeled with the patient's identification and left thumb mass is a 2 x 2 x 0.4 cm aggregate of elizabeth-white skin and malleable nodular homogenous pale pink tissue. The larger pieces are bisected. The specimen is entirely submitted in cassette A1. 08/16/2024 2:57 PM [facility] Materials Received Received are 1 slide(s) labeled [id number] along with a copy of the outside pathology report. [place] [address]. All original materials are returned to the referring institution, along with a copy of our final report. 08/16/2024 2:57 PM [facility] Addendum 1 The case was sent fo r consultation to the Bone and Soft Tissue Pathology section at the [facility] (consultation performed by Dr. Ricky Cash, 08/09/2024). Their diagnosis is: Soft tissue, left thumb, excision: - Calcified chondroid mesenchymal neoplasm (see comment) The [facility] consultation is scanned into this report, and the full comment is found there. 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 These benign tumors occupy a spectrum with other similar FN1-rearranged neoplasms, including soft tissue chondromas and, in children, calcifying aponeurotic fibroma. Although considered benign, local recurrences may occur. Close clinical follow-up is recommended. I concur with Dr. Cash's diagnosis. 08/16/2024 2:57 PM [facility] Addendum electronically signed by Sandi Mckay MD on 08/16/2024 at 2:57 PM Pathologist Location at [facility] 08/16/2024 2:57 PM [facility] Disclaimer The performance characteristics of all immunohistochemical and indirect immunofluorescence stains (if any) cited in this report were determined by the Histopathology Laboratory of [facility]. Some of these tests were developed by our own laboratory and have not been cleared or approved by the US Food and Drug Administration. The FDA does not require this test to go through premarket FDA review. These tests are used for clinical purposes. They should not be regarded as investigational or for research. This laboratory is certified under the Clinical Laboratory Improvement Amendments (CLIA) as qualified to perform high complexity clinical laboratory testing. This case has been personally reviewed and interpreted by the attending (teaching) pathologist. 08/16/2024 2:57 PM [facility] Embedded Images 08/16/2024 2:57 PM [facility] Pathology/Cytolo gy SOFT TISSUE MASS / Unknown 07/06/2024 11:59 AM MOLD CHANGER 07/13/2024 1:32 PM MOLD CHANGER Catrachito Schroeder MD LAB - PATHOLOGY/CYTO LOGY ORDERABLES [facility] PATH[facility] LAB [address] [place] [address], [facility] [phone] documented in this encounter Visit Diagnoses Diagnosis Illness, unspecified documented in this encounter
--- OUTSIDE RECORDS SUMMARY | 2024-08-30 09:15 | XMS_ITS | Referral Summary ---
Author Organization [facility] Address [address] [place] [address] Care Team Providers Care Assistant Mechanic Name Role Phone Unavailable Primary Care Provider Unavailabl e Source Comments [facility],non-owned Affiliates and Associated Physician Practices is amultiple site organization consisting of ambulatory clinics and hospital sitesin [place], [place] and [place]. This disclosure is being madepursuant to the Care Everywhere program and may not contain all information available regarding this patient. Last updated 18.[facility] Encounters Date Type Department Care Team Description 07/13/2024 Lab Requisition [facility] - Pathology Lab [address] [place] [address] Catrachito Schroeder MD Illness, unspecified from Last 3 Months Social History Tobacco Use Types Packs/Day Years Used Date Smoking Tobacco: Never Assessed Sex and Gender Information Value Date Recorded Sex Assigned at Not on file Gender Identity Not on file Sexual Orientation Not on file Plan of Treatment Not on file Procedures Procedure Name Priority Date/Time Associated Diagnosis Comments PATHOLOGY TISSUE Routine 07/06/2024 11:5 9 AM MAIL EXAMINER Illness, unspecified from Last 3 Months Results * PATHOLOGY TISSUE (07/06/2024 11:59 AM MAIL EXAMINER) Case Report Surgical Pathology Report Case: [id number] Authorizing Provider: Catrachito Schroeder MD Collected: 07/06/2024 11:59 AM Ordering Location: [facility] - Received: 07/13/2024 01:32 PM Pathology Lab Pathologist: Sandi Mckay MD Specimen: Soft Tissue Mass, Left thumb 08/16/2024 2:57 PM MAIL EXAMINER [facility] Final Diagnosis Left thumb mass, excision ([id number], 2024): - Spindle cell neoplasm (see description) 08/16/2024 2:57 PM [facility] Microscopic Description and Comment Microscopic [...] in an amended report. 08/16/2024 2:57 PM [facility] Clinical History The patient is a 38 year old woman. ([facility] accession number [id number], block A1). The patient has had left [...] bone resection margin curetted. 08/16/2024 2:57 PM [facility] Gross Description The case is a primary diagnosis of tissue received and processed at [place], [place], their accession number [id number] (2024). Provided are a single H and E stained slide A1 , the corresponding block, and pathology identification and grossing paperwork. Also received are pertinent radiology reports and operative note. The specimen has not been decalcified. The [facility] gross description: Received in formalin labeled with the patient's identification and left thumb mass is a 2 x 2 x 0.4 cm aggregate of elizabeth-white skin and malleable nodular homogenous pale pink tissue. The larger pieces are bisected. The specimen is entirely submitted in cassette A1. 08/16/2024 2:57 PM [facility] Materials Received Received are 1 slide(s) labeled [id number] along with a copy of the outside pathology report. [place] [address]. All original materials are returned to the referring institution, along with a copy of our final report. 08/16/2024 2:57 PM [facility] Addendum 1 The case was sent fo r consultation to the Bone and Soft Tissue Pathology section at the [facility] (consultation performed by Dr. Ricky Cash, 08/09/2024). Their diagnosis is: Soft tissue, left thumb, excision: - Calcified chondroid mesenchymal neoplasm (see comment) The [facility] consultation is scanned into this report, and [...] with Dr. Cash's diagnosis. 08/16/2024 2:57 PM [facility] Addendum electronically signed by Sandi Mckay MD on 08/16/2024 at 2:57 PM Pathologist Location at [facility] 08/16/2024 2:57 PM [facility] Disclaimer The performance characteristics of all immunohistochemical and indirect immunofluorescence stains (if any) cited in this report were determined by the Histopathology Laboratory of [facility]. Some of these tests were developed by [...] the attending (teaching) pathologist. 08/16/2024 2:57 PM [facility] Embedded Images 08/16/2024 2:57 PM [facility] Pathology/Cytolo gy SOFT TISSUE MASS / Unknown 07/06/2024 11:59 AM MAIL EXAMINER 07/13/2024 1:32 PM MAIL EXAMINER Catrachito Schroeder MD LAB - PATHOLOGY/CYTO LOGY ORDERABLES [facility] [address] [place] [address], [facility] [phone] from Last 3 Months
--- OUTSIDE RECORDS SUMMARY | 2024-08-30 09:15 | XMS_ITS | Patient Health Summary ---
Author Organization [facility] Address [address] [place] [place] [address] Care Team Providers Care Senior Pensions Administrator Name Role Phone Unavailable Primary Care Provider Unavailabl e Note from [facility],non-owned Affiliates and Associated Physician Practices is amultiple site organization consisting of ambulatory clinics and hospital sitesin [place], [place] and [place]. This disclosure is being madepursuant to the Care Everywhere program and may not contain all information available regarding this patient. Last updated 18.[facility] Social History Tobacco Use Types Packs/Day Years Used Date Smoking Tobacco: Never Assessed Sex and Gender Information Value Date Recorded Sex Assigned at Not on file Gender Identity Not on file Sexual Orientation Not on file Procedures * PATHOLOGY TISSUE(Performed 07/06/2024) Performed for Illness, unspecified Results * PATHOLOGY TISSUE (07/06/2024 11:59 AM SCREW SUPERVISOR) Case Report Surgical Pathology Report Case: [id number] Authorizing Provider: Catrachito Schroeder MD Collected: 07/06/2024 11:59 AM Ordering Location: [facility] - Received: 07/13/2024 01:32 PM Pathology Lab Pathologist: Sandi Mckay MD Specimen: Soft Tissue Mass, Left thumb 08/16/2024 2:57 PM [facility] Final Diagnosis Left thumb mass, 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 08/16/2024 2:57 PM [facility] Clinical History The patient is a 38 year old woman. ([facility] accession number [id number], block A1). The patient has had left [...] bone resection margin curetted. 08/16/2024 2:57 PM [facility] Gross Description The case is a primary diagnosis of tissue received and processed at [place], [place], their accession number [id number] (2024). Provided are a single H and E stained slide A1 , the corresponding block, and pathology identification and grossing paperwork. Also received are pertinent radiology reports and operative note. The specimen has not been decalcified. The [facility] gross description: Received in formalin labeled with the patient's identification and left thumb mass is a 2 x 2 x 0.4 cm aggregate of elizabeth-white skin and malleable nodular homogenous pale pink tissue. The larger pieces are bisected. The specimen is entirely submitted in cassette A1. 08/16/2024 2:57 PM [facility] Materials Received Received are 1 slide(s) labeled [id number] along with a copy of the outside pathology report. [place] [address]. All original materials are returned to the referring institution, along with a copy of our final report. 08/16/2024 2:57 PM [facility] Addendum 1 The case was sent fo r consultation to the Bone and Soft Tissue Pathology section at the [facility] (consultation performed by Dr. Ricky Cash, 08/09/2024). Their diagnosis is: Soft tissue, left thumb, excision: - Calcified chondroid mesenchymal neoplasm (see comment) The [facility] consultation is scanned into this report, [...] diagnosis. 08/16/2024 2:57 PM [facility] Addendum electronically signed by Sandi Mckay MD on 08/16/2024 at 2:57 PM Pathologist Location at [facility] 08/16/2024 2:57 PM [facility] Disclaimer The performance characteristics of all immunohistochemical and indirect immunofluorescence stains (if any) cited in this report were determined by the Histopathology Laboratory of [facility]. Some of these tests were developed by [...] pathologist. 08/16/2024 2:57 PM [facility] Embedded Images 08/16/2024 2:57 PM [facility] Pathology/Cytolo gy SOFT TISSUE MASS / Unknown 07/06/2024 11:59 AM SCREW SUPERVISOR 07/13/2024 1:32 PM SCREW SUPERVISOR Catrachito Schroeder MD LAB - PATHOLOGY/CYTO LOGY ORDERABLES Performing Organization Address City/State/[facility] Co de Phone Number [facility] [address] [place], [place] [id number] [place] [address]
--- OUTSIDE RECORDS SUMMARY | 2024-08-30 09:16 | XMS_ITS | Clinical Summary ---
Author Organization [facility] Address [address] [place] [address] Care Team Providers Care Construction Project Mgr Name Role Phone Unavailable Primary Care Provider Unavailabl e Source Comments [facility],non-owned Affiliates and Associated Physician Practices is amultiple site organization consisting of ambulatory clinics and hospital sitesin [place], [place], [place] and [place]. This disclosure is being madepursuant to the Care Everywhere program and may not contain all information available regarding this patient. Last updated 18.[facility] Encounters Date Type Department Care Team Description 07/13/2024 Lab Requisition [facility] - Pathology Lab [address] [place] [address] Catrachito Schroeder MD Illness, unspecified [...] on patient's age to complete this topic Procedures Procedure Name Priority Date/Time Associated Diagnosis Comments PATHOLOGY TISSUE Routine 07/06/2024 11:5 9 AM UNIVERSITY ADMINISTRATIVE ASSISTANT Illness, unspecified from Last 3 Months Results * PATHOLOGY TISSUE (07/06/2024 11:59 AM UNIVERSITY ADMINISTRATIVE ASSISTANT) Case Report Surgical Pathology Report Case: [id number] Authorizing Provider: Catrachito Schroeder MD Collected: 07/06/2024 11:59 AM Ordering Location: [facility] - Received: 07/13/2024 01:32 PM Pathology Lab Pathologist: Sandi Mckay MD Specimen: Soft Tissue Mass, Left thumb 08/16/2024 2:57 PM UNIVERSITY ADMINISTRATIVE ASSISTANT [facility] Final Diagnosis Left thumb mass, excision ([id number], 2024): - Spindle cell neoplasm (see description) 08/16/2024 2:57 PM UNIVERSITY ADMINISTRATIVE ASSISTANT [facility] Microscopic Description and Comment [...] in an amended report. 08/16/2024 2:57 PM [facility] Clinical History The patient is a 38 year old woman. ([facility] accession number [id number], block A1). The patient has had left [...] bone resection margin curetted. 08/16/2024 2:57 PM [facility] Gross Description The case is a primary diagnosis of tissue received and processed at [place], [place], their accession number [id number] (2024). Provided are a single H and E stained slide A1 , the corresponding block, and pathology identification and grossing paperwork. Also received are pertinent radiology reports and operative note. The specimen has not been decalcified. The [facility] gross description: Received in formalin labeled with the patient's identification and left thumb mass is a 2 x 2 x 0.4 cm aggregate of elizabeth-white skin and malleable nodular homogenous pale pink tissue. The larger pieces are bisected. The specimen is entirely submitted in cassette A1. 08/16/2024 2:57 PM [facility] Materials Received Received are 1 slide(s) labeled [id number] along with a copy of the outside pathology report. [place] [address]. All original materials are returned to the referring institution, along with a copy of our final report. 08/16/2024 2:57 PM [facility] Addendum 1 The case was sent fo r consultation to the Bone and Soft Tissue Pathology section at the [facility] (consultation performed by Dr. Ricky Cash, 08/09/2024). Their diagnosis is: Soft tissue, left thumb, excision: - Calcified chondroid mesenchymal neoplasm (see comment) The [facility] consultation is scanned into this report, [...] with Dr. Cash's diagnosis. 08/16/2024 2:57 PM [facility] Addendum electronically signed by Sandi Mckay MD on 08/16/2024 at 2:57 PM Pathologist Location at [facility] 08/16/2024 2:57 PM [facility] Disclaimer The performance characteristics of all immunohistochemical and indirect immunofluorescence stains (if any) cited in this report were determined by the Histopathology Laboratory of [facility]. Some of these tests were developed by [...] the attending (teaching) pathologist. 08/16/2024 2:57 PM UNIVERSITY ADMINISTRATIVE ASSISTANT [facility] Embedded Images 08/16/2024 2:57 PM UNIVERSITY ADMINISTRATIVE ASSISTANT [facility] Pathology/Cytolo gy SOFT TISSUE MASS / Unknown 07/06/2024 11:59 AM UNIVERSITY ADMINISTRATIVE ASSISTANT 07/13/2024 1:32 PM UNIVERSITY ADMINISTRATIVE ASSISTANT Catrachito Schroeder MD LAB - PATHOLOGY/CYTO LOGY ORDERABLES [facility] [address] [facility] [address] [place], [place] [id number] [place] [address] from Last 3 Months
== END 2024-08-30 08:40 | disposition home or self-care (01) ==
PROVIDERS: PCP Physician Assistant; Visit Provider Physician Assistant Surgical
DX: R22.32 Localized swelling, mass and lump, left upper limb (principal)
CPT/HCPCS: 73140

== ENCOUNTER 2024-09-01 14:45 | Outpatient (CLI) | payer OTHER, SELFPAY ==
--- NOTE | ~2024-09-01 | MM_ITS ---
EXAMINATION: MM screening natanael BI w chandra HISTORY: Screening mammogram TECHNIQUE: Craniocaudal and mediolateral oblique 3-D tomosynthesis images were obtained and synthetic 2-D images were generated. CAD analysis was submitted and interpreted. COMPARISON: 08/26/2023 BREAST PARENCHYMAL COMPOSITION:Not Dense. There are scattered areas of fibroglandular density. FINDINGS: No suspicious mass, calcification, or architectural distortion are identified in either mert ast to suggest malignancy. There has been no suspicious interval change. IMPRESSION: No mammographic evidence of malignancy. Recommend routine screening mammography in one year. BI-RADS Category 1: Negative Reviewed, dictated and finalized at location .
--- OUTSIDE RECORDS SUMMARY | 2024-09-01 16:40 | XMS_ITS | CONTINUITY OF CARE DOCUMENT ---
Author Name dallin zamarripa Address Unknown Organization [facility] Address [address] [place] [address] Phone [phone] Care Team Providers Care Jackerman Name Role Phone Cody WHITAKER, Robert Unavailable [phone] Robert Ross MD Unavailable [phone] INSURANCE PROVIDERS Payer name Policy type / Coverage type Danny red [employer] party ID [employer] MEDICAID (2) Medicaid [id number]
--- OUTSIDE RECORDS SUMMARY | 2024-09-01 16:40 | XMS_ITS | Clinical Summary ---
Author Organization [facility] Address [address] [place] [address] Care Team Providers Care Head Of Digital Name Role Phone Anisa Fierro PA-C Primary Care Provider [phone] Allergies No known active allergies Medications No known medications Encounters Date Type Department Care Team Description 06/24/2024 10:57 AM ACCESS SPEC - 06/24/2024 11:12 AM ACCESS SPEC Emergency [facility] [place] [address] Fabien Lopez PA-C Finger Swelling Discharge Disposition: [...] Comments Blood Pressure 146/96 06/24/2024 10:36 AM ACCESS SPEC Pulse 73 06/24/2024 10:36 AM ACCESS SPEC Temperature 36.9 C (98.5 F) 06/24/2024 10:36 AM ACCESS SPEC Respiratory Rate 20 06/24/2024 10:36 AM ACCESS SPEC Oxygen Saturation 100% 06/24/2024 10:36 AM ACCESS SPEC Inhaled Oxygen Concentration - - Weight 80.5 kg (177 lb 7.5 oz) 06/24/2024 10:36 AM ACCESS SPEC Height 160 cm (5' 3 ) 06/24/2024 10:36 AM ACCESS SPEC Body Mass Index 31.44 06/24/2024 10:36 AM ACCESS SPEC Plan of Treatment Health Maintenance Due Date [...] patient's age to complete this topic Insurance [place] Care Teams Head Of Digital Relationship Specialty Start Date End Date Anisa Fierro PA-C [address] [place] [phone] PCP - General PHYSICIAN [employer]IDENT [employer] 06/24/24
--- OUTSIDE RECORDS SUMMARY | 2024-09-01 16:40 | XMS_ITS | Continuity of Care Document ---
Author Organization [facility] Address [address] [place] [address] Care Team Providers Care Manager Intensive Care Unit Name Role Phone MARCELO BUENROSTRO Primary Care Provider [phone] Assessment No assessment recorded. Plan of Treatment Reminders Order Date Submit Date Provider Last Modified By Organization Details Last Modified Time Details Appointments ANY 15 2024 10:15A M Maicel Jara MD Not available Not available Not available ANY 15 2024 08:30A M CRISSY COLÓN Not available Not available Not available ANY 2024 10:15A M Maciel Jara MD Not available Not available Not available Lab None recorded . Referral None recorded . Procedures None recorded . Surgeries None recorded . Imaging CT, chest, w/o contrast - Provider wants test done in 07/2024. 2024 025 [email or web address] 246 [facility], [address] [place], [address], 09/01/2024 11:46:09 Medication Orders None recorded . Patient TargetsNo targets recorded. Patient InstructionsNo instructions recorded. Reason for Referral None Reported. Results Created Date Observation Date Name Description Value Unit Range Abnormal Flag Note LastModifiedBy Organization Detail LastModifiedTime 08/31/19 25 08/30/2024 XR, finge r(s), 2 or more view No observ ation record ed. [facility] [address], [place], [address], 08/31/2024 11:05:05 Result Notes None recorded. Problems Name Problem SNOMED Code Status Onset Date Resolution Date Notes Provider Name and Address Organization Details Recorded Time History of total hysterecto my 761432849 Active 202202/07/2023 KATARZYNA KEVIN Attn: Teena spears,[address] [facility], [place], [address], [place] - [facility] 3 15:51:56 Hyperlipid emia 68838827 Active 2022 KATARZYNA KEVIN Attn: Teena spears,[address] [facility], [place], [address], [place] [facility] 3 15:51:56 Gastroesop hageal reflux disease without esophagiti s 183214092 Active 2022 KATARZYNA KEVIN Attn: Teena spears,[address] [facility], [place], [address], [place] [facility] 3 10:38:25 Screening for malignant neoplasm of colon Active 2023 records in chart completed 01/19/24, repeat in 5 yrs KATARZYNA KEVIN Attn: Teena spears,[address] [facility], [place], [address], [place] [facility] 4 10:03:57 Depressive disorder 26223137 Active [address] Attn: Teena spears,[address] [facility], [place], [address], [place] [facility] 3 15:51:56 Anger reaction 053994532 Active KATARZYNA KEVIN Attn: Teena g,[address] [facility], [place], [address], [place] [facility] 3 15:51:55 Hyperchole sterolemia 66582211 Active 2015 KATARZYNA KEVIN Attn: Teena spears,[address] [facility], [place], [address], [place] - [facility] 3 15:51:55 Problem Notes None recorded. Procedures Surgical History Date Name Laterality Status Provider Name and Address Organization Details Recorded Time 02/08/20 23 total hysterectomy completed KATARZYNA KEVIN Attn: Accounting,[address] , [place], [address], [facility] 05/20/2023 10:41:24 Imaging Results None recorded. Procedure Notes None recorded. Medical Equipment None Reported. Allergies No known drug allergies Medications Name Sig Start Date Stop Date Status Note LastModified by Organization Details LastModified Time atorvastati n 40 mg tablet TAKE 1 TABLET BY MOUTH EVERY DAY AT BEDTIME FOR HIGH CHOLESTER OL 2023 active Not Available Not Available Not Avai lable clindamycin HCl 300 mg capsule TAKE 1 CAPSULE BY MOUTH EVERY 8 HOURS FOR 7 DAYS 09/01 completed Not Available Not Available Not Available trazodone 50 mg tablet 02/11 completed Not Available Not Available Not Available hydrocodone 5 mg-acetamin ophen 325 mg tablet TAKE 1 TABLET BY MOUTH EVERY 4 HOURS NEEDED 03/14 completed Not Available Not Available Not Available prednisone 20 mg tablet TAKE 2 TABLETS BY MOUTH DAILY FOR 5 DAYS 02/11 completed Not Available Not Available Not Available simvastatin 10 mg tablet Take 1 tablet every day by oral route. 02/11 completed Not Available Not Available Not Available metronidazo le 500 mg tablet TAKE 1 TABLET BY MOUTH TWICE DAILY FOR 7 DAYS 02/11 completed Not Available Not Available Not Available ciprofloxac in 500 mg tablet TAKE 1 TABLET BY MOUTH TWICE DAILY 05/12 completed Not Available Not Available Not Available sulfamethox azole 800 mg-trimetho prim 160 mg tablet TAKE 1 TABLET BY MOUTH TWICE DAILY 02/11 completed Not Available Not Available Not Available tramadol 50 mg tablet TAKE 1 TABLET BY MOUTH EVERY 6 HOURS NEEDED FOR PAIN active Not Available Not Available No t Available pantoprazol e 20 mg tablet,teofilo yed release TAKE 1 TABLET BY MOUTH EVERY DAY IN THE MORNING 02/04 completed Not Available Not Available Not Available carbamazepi ne 200 mg tablet 02/11 completed Not Available Not Available Not Available cephalexin 500 mg capsule TAKE 1 CAPSULE BY MOUTH EVERY 8 HOURS active Not Available Not Available No t Available pantoprazol e 40 mg tablet,teofilo yed release Take by oral route for 30 days. active Not Available Not Available No t Available mirtazapine 30 mg tablet 02/11 completed Not Available Not Available Not Available fluoxetine 10 mg capsule 02/11 completed Not Available Not Available Not Available bisacodyl 5 mg tablet,teofilo yed release AT 2PM THE DAY BEFORE PROCEDURE TAKE ALL 4 TABLETS BY MOUTH WITH 8 OUNCES OF WATER. 02/04 completed Not Available Not Available Not Available lorazepam 1 mg tablet 02/11 completed Not Available Not Available Not Available polyethylen e glycol 3350 17 gram/dose oral powder In a pitcher, mix entire bottle of Miralax in one 64 ounce bottle of yellow or green Gatorade. Beginning at 5:00 PM the evening before the colonosco py, drink 1 8-ounce glass every 15 minutes until completed . Drink 4 glasses of water after finishing this mixture 02/04 completed Not Available Not Available Not Available albuterol sulfate HFA 90 mcg/actuati on aerosol inhaler INHALE 2 PUFFS BY MOUTH EVERY 4 TO 6 HOURS NEEDED FOR SHORTNESS OF BREATH OR WHEEZING 02/11 completed Not Available Not Available Not Available hydroxyzine HCl 10 mg tablet 02/11 completed Not Available Not Available Not Available ondansetron 4 mg disintegrat ing tablet DISSOLVE 1 TABLET ON THE TONGUE TWICE DAILY NEEDED FOR NAUSEA OR VOMITING active Not Available Not Available No t Available amoxicillin 875 mg-potassiu m clavulanate 125 mg tablet TAKE 1 TABLET BY MOUTH EVERY 12 HOURS FOR 10 DAYS 02/11 completed Not Available Not Available Not Available nitrofurant oin monohydrate /macrocryst als 100 mg capsule TAKE 1 CAPSULE BY MOUTH EVERY 12 HOURS FOR 10 DAYS 02/11 completed Not Available Not Available Not Available Paxlovid 300 mg (150 mg x 2)-100 mg tablets in a dose pack TAKE 2 TABLETS OF NIRMATREL VIR WITH 1 TABLET OF RITONAVIR TWICE DAILY FOR 5 DAYS. 02/11 completed Not Available Not Available Not Available Vitals Date Recorded Body height Oxygen saturation Oxygen saturation in Arterial blood by Pulse oximetry Heart rate Pain severity - 0-10 verbal numeric rating [Score] - Reported Respiratory rate Body temperature Body mass index (BMI) Body weight Systolic blood pressure Diastolic blood pressure Provider Name and Address Organization Details Last Updated DateTime 5 160.02 cm 98 % 98 % 68 /min 0 18 /min 98.2 [degF] 30.8 kg/m2 31907.0 7 g 134 mm[Hg] 76 mm[Hg] Tyra Davis LPN [facility] 5 10:57:48 Social History Question Answer Notes LastModified by Organizat ion Details LastModified Time Tobacco Smoking Status Never Smoker DANNIELLE Cho, [facility] 11/11/2016 11:04:56 Do You Have An Advance Directive? No Information n ot available 05/12/2023 What Is Your Level Of Alcohol Consumption? Occasional Information not available 02/11/2023 What Is Your Level Of Caffeine Consumption? None Information not available 02/11/2023 In The 14 Days Before Symptom Onset, Have You Had Close Contact With A Laboratory-confirm ed COVID-19 While That Case Was Ill? No Information n ot available 05/12/2023 In The 14 Days Before Symptom Onset, Have You Had Close Contact With A Person Who Is Under Investigation For COVID-19 While That Person Was Ill? No Information not available 05/12/2023 Have You Been To An Area Known To Be High Risk For COVID-19? No Information not available 05/12/2023 What Type Of Diet Are You Following? REGULAR Information n ot available 05/12/2023 What Is The Highest Grade Or Level Of School You Have Completed Or The Highest Degree You Have Received? [id number] Information not available 05/12/2023 Do You Have A Medical Power Of Insulation Inspector? No Information not available 05/12/2023 What Was The Date Of Your Most Recent Tobacco Screening? 09/01/2024 [email or web address] Information not available 09/01/2024 Do You Have Smoke And Carbon Monoxide Detectors In Your Home? Yes Information not available 05/12/2023 Are You Passively Exposed To Smoke? No Information no t available 05/12/2023 Do You Use Any Illicit Or Recreational Drugs? No Information not available 02/11/2023 Has Tobacco Cessation Counseling Been Provided? No Information not available 02/11/2023 Do You Or Have You Ever Used Any Other Forms Of Tobacco Or Nicotine? No Information not available 02/11/2023 Sex: Female Functional Status None recorded. Mental Status None recorded. Family History Relationship Description Onset Age of this Age Resolved Age Notes LastModified by Organization Details LastModified Time Father Hypertensive disorder [email or web address] Not available 2016 11:03:53 Maternal Grandfather Hypertensive disorder [email or web address] Not available 2016 11:04:15 Paternal Grandfather Diabetes mellitus [email or web address] Not available 2016 11:04:36 Medical History Condition Response Anxiety Disorder Y Diabetes Y High Blood Pressure Y Depression Y High Cholesterol Y Gynecological History Statement/Question Response Sexual Problems? N Current Control Method Hysterectom y Age at First Child 16 Sexually Active? Y Obstetrics History GPAL:G 3 P 2 0 1 2 Type Value Multiple Births 0 Full Term 2 Induced 0 Spontaneous 1 Premature 0 Living 2 Ectopics 0 Total 3 Immunizations Vaccine Type Date Status Note Provider Nam e and Address Organization Details Recorded Time COVID-19, mRNA, LNP-S, bivalent, PF, 50 mcg/0.5 mL or 25mcg/0.25 mL dose 05/20/2022 completed DANNIELLE Moreau [facility] 05/20/2022 14:52:23 Past Encounters Encounter ID Performer Location Encounter Start Date Encounter Closed Date Diagnosis/Indication Diagnosis SNOMED-CT Code Diagnosis ICD10 Code Diagnosis Note [id number] [facility] [address] [place] [address] 08/23/2024 13:50:27 08/23/2024 14:29:44 Chronic gastritis 2630964 K29.50 EGD 10/21/2023: active chronic gastritis. Revisit pantoprazo le. Patient to work on decreasing to once/day dosing. F/u 6 months Diverticul osis of colon 442346155 K57.30 continue fiber Internal hemorrhoids 904 01364 K64.8 continue fiber [id number] Maciel Jara MD [facility] [address] [place] [address] 09/01/2024 10:42:54 09/01/2024 11:46:09 Nodule of lung 424388858 R91.[address] Gastroesop hageal reflux disease 457055225 K21.9 Pantoprazo le Solitary n odule of lung 264387300 R91.1 Health Concerns Section Related Observation LastModified by Organization Detai ls LastModified Time None Recorded Concern Status LastModified by Organization Details LastModified Time None Recorded Payers Encounter Date Sequence Insurance Name Policy Number Policy Cordova Covered Member ID Cordova Member ID Guarantor Name 09/01/2024 1 [employer] [facility] ON OR AFTER 12/21/20 (MEDICAID REPLACEMENT - HMO) Roderick Briesno [id number] Roderick Briseno Notes Date Note Type Note Provider Name and Address Organization Details Recorded Time 09/01/2024 text/html follow for Lung nodule It was an incidental findings on CT of abdomen. Has granulomas of spleen life time non smoker no cough no known mold exposure review chest CT from 07/2023 Maciel Jara MD [address], [place], [address], [facility] 09/01/2024 11:35:27 OBGyn Episode No OBEpisode recorded.
--- OUTSIDE RECORDS SUMMARY | 2024-09-01 16:40 | XMS_ITS | Data Portability ---
Author Organization [facility], [facility] Address [address] [place] [address] Assessment No assessment recorded. Plan of Treatment [...] Recorded Time Endometrial Ablation completed Ramila Giovani [facility] 01/23/2023 14:46:39 ligation of bilateral fallopian tubes completed [facility] [employer] [facility] 01/23/2023 14:57:45 Imaging Results None recorded. Procedure [...] Last Updated DateTime 160.02 cm 31.5 kg/m2 57390 g 97.2 [degF] 122 mm[Hg] 80 mm[Hg] Ramila Matute [facility] 14:57:05 Social History Question Answer Notes LastModified by Organizat ion Details LastModified Time Tobacco Smoking Status Never Smoker Ramila Matute abilio, [facility] 01/23/2023 14:46:39 What Is Your Level [...] History Condition Response High Blood Pressure Y Fibroids Y Cervical Cancer Y Seasonal allergies Y History of Abnormal Pap Y Diabetes Mellitus (during ) Y High Cholesterol Y Headaches/migraines Y Gynecological History Statement/Question Response Current Control Method Hysterectom y Age at Menarche 11 Date of LMP 03/07/2010 Obstetrics History GPAL:G 3 P 0 2 1 0 Type Value Spontaneous 1 Premature 2 Total 3 Past Encounters Encounter ID Performer Location Encounter Start Date Encounter Closed Date Diagnosis/Indication Diagnosis SNOMED-CT Code Diagnosis ICD10 Code Diagnosis Note [id number] Hermes Abarca DO [facility] [address] [place] [address] 01/23/2023 14:34:51 01/23/2023 15:58:50 Pain in pelvis 85048964 R10.2 h/o surgery - possible ablation at [place]- will get records - pa for ultrasound Health Concerns Section Related Observation LastModified by Organization Detlibertad ls LastModified Time None Recorded Concern Status LastModified by Organization Details LastModified Time None Recorded Advance Directives Directive None Recorded Payers Encounter Date Sequence Insurance Name Policy Number Policy Cordova Covered Member ID Cordova Member ID Guarantor Name 01/23/2023 1 [facility] - DOS ON OR AFTER 20 (MEDICAID REPLACEMENT - HMO) Roderick Briseno [id number] Roderick Briseno Notes Date Note Type Note [...] ovarian mass. ct results. Hermes Abarca, DO [facility] [address], [place], [address], [facility] 01/23/2023 15:42:26 OBGyn Episode No OBEpisode recorded.
--- OUTSIDE RECORDS SUMMARY | 2024-09-01 16:41 | XMS_ITS | Clinical Summary ---
Author Organization [facility] Address [address] [place] [address] Care Team Providers Care Purchasing/Receiving Name Role Phone Unavailable Primary Care Provider Unavailabl e Source Comments [facility],non-owned Affiliates and Associated Physician Practices is amultiple site organization consisting of ambulatory clinics and hospital sitesin [place], [place], [place] and [place]. This disclosure is being madepursuant to the Care Everywhere program and may not contain all information available regarding this patient. Last updated 18.[facility] Encounters Date Type Department Care Team Description 07/13/2024 Lab Requisition [facility] - Pathology Lab [address] [place] [address] Catrachito Schroeder MD Illness, unspecified [...] to complete this topic MENINGOCOCCAL (Group B) VACC INE SHARED DECISION-MAKING Aged Out No longer eligibl e based on patient's age to complete this topic MENINGOCOCCAL GROUPS A/C/Y/W VACCINE Aged Out No longer eligible b ased on patient's age to complete this topic PNEUMOCOCCAL VACCINE Aged Out No long er eligible based on patient's age to complete this topic Procedures Procedure Name Priority Date/Time Associated Diagnosis Comments PATHOLOGY TISSUE Routine 07/06/2024 11:5 9 AM [facility] Illness, unspecified from Last 3 Months Results * PATHOLOGY TISSUE (07/06/2024 11:59 AM [facility]) Case Report Surgical Pathology Report Case: [id number] Authorizing Provider: Catrachito Schroeder MD Collected: 07/06/2024 11:59 AM Ordering Location: [facility] - Received: 07/13/2024 01:32 PM Pathology Lab Pathologist: Sandi Mckay MD Specimen: Soft Tissue Mass, Left thumb 08/16/2024 2:57 PM [facility] Final Diagnosis Left thumb mass, excision ([id number], 2024): - Spindle cell neoplasm (see description) 08/16/2024 2:57 PM [facility] Microscopic Description and Comment Microscopic [...] in an amended report. 08/16/2024 2:[address] [facility] Clinical History The patient is a 38 year old woman. ([facility] accession number [id number], block A1). The patient has had left [...] bone resection margin curetted. 08/16/2024 2:[address] [facility] Gross Description The case is a primary diagnosis of tissue received and processed at [place], [place], their accession number [id number] (2024). Provided are a single H and E stained slide A1 , the corresponding block, and pathology identification and grossing paperwork. Also received are pertinent radiology reports and operative note. The specimen has not been decalcified. The [facility] gross description: Received in formalin labeled with the patient's identification and left thumb mass is a 2 x 2 x 0.4 cm aggregate of elizabeth-white skin and malleable nodular homogenous pale pink tissue. The larger pieces are bisected. The specimen is entirely submitted in cassette A1. 08/16/2024 2:[address] [facility] Materials Received Received are 1 slide(s) labeled [id number] along with a copy of the outside pathology report. [place] [address]. All original materials are returned to the referring institution, along with a copy of our final report. 08/16/2024 2:[address] [facility] Addendum 1 The case was sent fo r consultation to the Bone and Soft Tissue Pathology section at the [facility] (consultation performed by Dr. Ricky Cash, 08/09/2024). Their diagnosis is: Soft tissue, left thumb, excision: - Calcified chondroid mesenchymal neoplasm (see comment) The [facility] consultation is scanned into this report, and [...] with Dr. Cash's diagnosis. 08/16/2024 2:[address] [facility] Addendum electronically signed by Sandi Mckay MD on 08/16/2024 at 2:57 PM Pathologist Location at [facility] 08/16/2024 2:[address] [facility] Disclaimer The performance characteristics of all immunohistochemical and indirect immunofluorescence stains (if any) cited in this report were determined by the [facility] of [facility]. Some of these tests were developed by [...] the attending (teaching) pathologist. 08/16/2024 2:57 PM [facility] Embedded Images 08/16/2024 2:57 PM [facility] Pathology/Cytolo gy SOFT TISSUE MASS / Unknown 07/06/2024 11:59 AM [facility] 07/13/2024 1:32 PM [facility] Catrachito Schroeder MD LAB - PATHOLOGY/CYTO LOGY ORDERABLES Performing Organization Address City/State/[facility] Co de Phone Number [facility] [address] [phone] from Last 3 Months
--- OUTSIDE RECORDS SUMMARY | 2024-09-01 16:41 | XMS_ITS | Continuity of Care Document ---
Author Organization [facility] Address [address] [facility] [address] [place] [address] Phone Care Team Providers Care Medical Staff Physician Name Role Phone Goel OD, Dylan Unavailable Unavailable Procedures Procedure Date Eye Exam Established Pt Advance Directives Directive Yes / No Effective Date File Name No Information Encounters Encounter Description Practice Location Reason(s) For Visit Diagnoses Date Provider Providers Copied on Encounter [facility], [address], [place], [place], [address], [place] tel:[phone] [address] [facility] No Information 2-200 8 Goel OD Dylan. [address] , [address], [place], [address], [place]. tel:[phone] Family History Family Member Type Diagnosis Age At Onset No Information Payers Payer name Insurance type Covered republican ID Authoriza tion(s) Medicaid [facility] [id number] Social History Type Description Quantity Date Captured [...]
--- OUTSIDE RECORDS SUMMARY | 2024-09-01 16:41 | XMS_ITS | Data Portability ---
Author Organization [facility] Address [address] [place] [address] Care Team Providers Care Personal Investment Adviser Name Role Phone MARCELO BUENROSTRO Primary Care Provider Assessment No assessment recorded. Plan of Treatment Reminders Order Date Submit Date Provider Last Modified By Organization Details Last Modified Time Details Appointments ANY 15 2024 10:15A M Maciel Jara MD Not available Not available Not available ANY 2024 08:30A M CRISSY COLÓN Not available Not available Not available ANY 2024 10:15A M Maciel Jara MD Not available Not available Not available Lab CMP, serum or plasma 2023 024 NEMACOLIN [facility], [address], [place], [address], 02/06/2024 08:34:52 CBC w/ auto diff 2023 024 DAVIAN [facility], [address], [place], [address], 02/06/2024 08:34:53 TSH + free T4, serum 2023 024 NEMACOLIN [facility], [address], [place], [address], 02/06/2024 08:34:51 HbA1c (hemoglo bin A1c), blood 2023 024 DAVIAN [facility], [address], [place], [address], 02/06/2024 08:34:53 lipid panel, serum 2023 024 NEMACOLIN [facility], [address], [place], [address], 02/06/2024 08:34:52 H pylori Ag, stool 2023 024 [facility] (Lab), [address], [place], [address], 08/08/2024 05:02:31 pancreat ic elastase , stool 2023 024 [facility] (Lab), [address], [place], [address], 08/08/2024 05:02:31 O&P (ova & parasite s), stool 2023 024 [facility] (Lab), [address], [place], [address], 01/07/2024 16:10:54 celiac disease comprehe nsive panel, serum 2023 024 [facility] (Lab), [address], [place], [address], 08/08/2024 05:02:31 giardia + cryptosp oridium Ag, stool 2023 024 [facility] (Lab), [address], [place], [address], 01/07/2024 16:10:55 C diff screen, stool, reflex PCR 2023 024 [facility] (Lab), [address], [place], [address], 08/08/2024 05:02:31 calprote ctin, stool 2023 024 [facility] (Lab), [address] [place], [address], 08/08/2024 05:02:31 Referral None recorded . Procedures colonosc opy procedur e (PROC) - patien t to follow up 2-3 weeks after colonosc opyIs patient on blood thinners ?: NPacemak er or defibril lator?: NPrep (Colonos copy Procedur e): PEG 3350, Go Lytely, Colyte or Gavalyte G, dependin g on insuranc e coverage If patient has had coronary / vascular stent, provide date: NoIf patient has had heart attack or stroke, provide date: NoHas patient ever had problems with anesthes ia or sedation ?: NoHas patient had problems with opening mouth or breathin g tubes?: NoDoes patient use a wheelcha ir?: N 2023 024 Conor-Resub florentino-Revert [facility] (Surgery Sched), [address], [place], [address], 01/06/2024 13:05:26 Surgeries None recorded . Imaging CT, chest, w/o contrast - Provider wants test done in 07/2024. [email or web address] [facility] (Rad), [address] [place], [address], 09/01/2024 11:46:09 CT, chest, w/o contrast - Provider wants test done in 07/2024. [address] [facility] (Rad), [address] [place], [address], 10/22/2023 10:08:24 Medication Orders pantopra zole 40 mg tablet,d elayed release 2024 025 NEMACOLIN [facility] #[id number], [address], [place], [place], [id number], 08/23/2024 14:16:40 atorvast atin 40 mg tablet 2023 [facility] #[id number], [address], [place], [id number], 02/05/2024 10:06:45 Dulcolax (bisacod yl) 5 mg tablet,d elayed release 2023 024 [facility] #[id number], [address], [place], [id number], 02/05/2024 10:03:52 Miralax 17 gram/dos e oral powder 2023 [facility] #[id number], [address], [place], [id number], 02/05/2024 10:03:51 Patient TargetsNo targets recorded. Patient Instructions Encounter Date Encounter Id Patient Instructions Last Modified By Organization Details Last Modified Time 01/05/2024 [id number] RL About Your Colonoscopy 1 Day Prep [email or web address] Not available 01/05/2024 15:49:37 02/05/2024 [id number] A healthy lifestyle: care instructions [email or web address] Not available 02/05/2024 10:06:36 Reason for Referral None Reported. Results Created Date Observation Date Name Description Value Unit Range Abnormal Flag Note LastModifiedBy Organization Detail LastModifiedTime 02/05/2002/06/2024 TSH+F REE T4 TSH 2.280 uIU/m L 0.450- 4.500 Not Available [facility] ([facility]) [address], [place], [address], 02/06/2024 08:34:51 02/05/2002/06/2024 TSH+F REE T4 T4,free(dire ct) 1.14 NG/dL 0.82-1 .77 Not Available [facility] ([facility]) [address], [place], [address], 02/06/2024 08:34:51 02/05/20 24 02/06/2024 LIPID PANEL WITH LDL/H DL RATIO cholesterol, total 146 mg/dL 100-19 9 Not Available [facility] ([facility]) [address], [place], [address], 02/06/2024 08:34:52 02/05/20 24 02/06/2024 LIPID PANEL WITH LDL/H DL RATIO triglyceride s 76 mg/dL 0-149 Not Available [facility] ([facility]) [address], [place], [address], 02/06/2024 08:34:52 02/05/20 24 02/06/2024 LIPID PANEL WITH LDL/H DL RATIO HDL cholesterol 48 mg/dL >39 Not Available [facility] ([facility]) [address], [place], [address], 02/06/2024 08:34:52 02/05/20 24 02/06/2024 LIPID PANEL WITH LDL/H DL RATIO VLDL cholesterol bora 15 mg/dL 5-40 Not Available [facility] ([facility]) [address], [place], [address], 02/06/2024 08:34:52 02/05/20 24 02/06/2024 LIPID PANEL WITH LDL/H DL RATIO LDL chol calc ([facility]) 83 mg/dL 0-99 Not Available [facility] ([facility]) [address] [place], [address], 02/06/2024 08:34:52 02/05/20 24 02/06/2024 LIPID PANEL WITH LDL/H DL RATIO LDL/HDL ratio 1.7 ratio 0.0-3. 2 LDL/H DL Ratio Men Women 1/2 Avg.R isk 1.0 1.5 Avg.R isk 3.6 3.2 2X Avg.R isk 6.2 5.0 3X Avg.R isk 8.0 6.1 Not Available [facility] ([facility]) [address] [place], [address], 02/06/2024 08:34:52 02/05/20 24 02/06/2024 COMP. METAB OLIC PANEL (14) glucose 93 mg/dL 70-99 Not Available [facility] ([facility]) [address] [place], [address], 02/06/2024 08:34:52 02/05/20 24 02/06/2024 COMP. METAB OLIC PANEL (14) BUN 17 mg/dL 6-24 Not Available [facility] ([facility]) [address] [place], [address], 02/06/2024 08:34:52 02/05/20 24 02/06/2024 COMP. METAB OLIC PANEL (14) creatinine 1.12 mg/dL 0.57-1 .00 above high normal Not Available [facility] ([facility]) [address] [place], [address], 02/06/2024 08:34:52 02/05/20 24 02/06/2024 COMP. METAB OLIC PANEL (14) eGFR 64 mL/mi n/1.7 3 >59 Not Available [facility] ([facility]) [address] [place], [address], 02/06/2024 08:34:52 02/05/20 24 02/06/2024 COMP. METAB OLIC PANEL (14) BUN/creatini ne ratio 15 9-23 Not Available [facility] ([facility]) [address] [place], [address], 02/06/2024 08:34:52 02/05/20 24 02/06/2024 COMP. METAB OLIC PANEL (14) sodium 139 mmol/ L 134-14 4 Not Available [facility] ([facility]) [address] [place], [address], 02/06/2024 08:34:52 08/15/20 24 02/06/2024 COMP. METAB OLIC PANEL (14) potassium 4.5 mmol/ L 3.5-5. 2 Not Available [facility] ([facility]) [address] [place], [address], 02/06/2024 08:34:52 02/05/20 24 02/06/2024 COMP. METAB OLIC PANEL (14) chloride 104 mmol/ L 96-106 Not Available [facility] ([facility]) [address], [place], [address], 02/06/2024 08:34:52 02/05/20 24 02/06/2024 COMP. METAB OLIC PANEL (14) carbon dioxide, total 20 mmol/ L 20-29 Not Available [facility] ([facility]) [address], [place], [address], 02/06/2024 08:34:52 02/05/20 24 02/06/2024 COMP. METAB OLIC PANEL (14) calcium 9.0 mg/dL 8.7-10 .2 Not Available [facility] ([facility]) [address] [place], [address], 02/06/2024 08:34:52 02/05/20 24 02/06/2024 COMP. METAB OLIC PANEL (14) protein, total 6.8 g/dL 6.0-8. 5 Not Available [facility] ([facility]) [address], [place], [address], 02/06/2024 08:34:52 02/05/20 24 02/06/2024 COMP. METAB OLIC PANEL (14) albumin 4.0 g/dL 3.9-4. 9 Not Available [facility] ([facility]) [address] [place], [address], 02/06/2024 08:34:52 02/05/20 24 02/06/2024 COMP. METAB OLIC PANEL (14) globulin, total 2.8 g/dL 1.5-4. 5 Not Available [facility] ([facility]) [address] [place], [address], 02/06/2024 08:34:52 02/05/20 24 02/06/2024 COMP. METAB OLIC PANEL (14) bilirubin, total 0.3 mg/dL 0.0-1. 2 Not Available [facility] ([facility]) [address] [place], [address], 02/06/2024 08:34:52 02/05/20 24 02/06/2024 COMP. METAB OLIC PANEL (14) alkaline phosphatase 70 IU/L 44-121 Not Available [facility] ([facility]) [address] [place], [address], 02/06/2024 08:34:52 02/05/20 24 02/06/2024 COMP. METAB OLIC PANEL (14) AST (SGOT) 19 IU/L 0-40 Not Available [facility] ([facility]) [address] [place], [address], 02/06/2024 08:34:52 02/05/20 24 02/06/2024 COMP. METAB OLIC PANEL (14) ALT (SGPT) 20 IU/L 0-32 Not Available [facility] ([facility]) [address] [place], [address], 02/06/2024 08:34:52 02/05/20 24 02/06/2024 HEMOG LOBIN A1C hemoglobin A1C 6.1 % 4.8-5. 6 above high normal Predi abete s: 5.7 - 6.4 Diabe brennon: >6.4 Glyce verito contr ol for adult s with diabe brennon: <7.0 Not Available [facility] ([facility]) [address] [place], [address], 02/06/2024 08:34:53 02/05/20 24 02/06/2024 CBC WITH DIFFE RENTI AL/PL ATELE T WBC 4.9 x10e3 /uL 3.4-10 .8 Not Available [facility] ([facility]) [address], [place], [address], 02/06/2024 08:34:53 02/05/20 24 02/06/2024 CBC WITH DIFFE RENTI AL/PL ATELE T RBC 4.33 x10e6 /uL 3.77-5 .28 Not Available [facility] ([facility]) [address], [place], [address], 02/06/2024 08:34:53 02/05/20 24 02/06/2024 CBC WITH DIFFE RENTI AL/PL ATELE T hemoglobin 12.8 g/dL 11.1-1 5.9 Not Available [facility] ([facility]) [address], [place], [address], 02/06/2024 08:34:53 02/05/20 24 02/06/2024 CBC WITH DIFFE RENTI AL/PL ATELE T hematocrit 38.1 % 34.0-4 6.6 Not Available [facility] ([facility]) [address], [place], [address], 02/06/2024 08:34:53 02/05/20 24 02/06/2024 CBC WITH DIFFE RENTI AL/PL ATELE T MCV 88 fL 79-97 Not Available [facility] ([facility]) [address], [place], [address], 02/06/2024 08:34:53 02/05/20 24 02/06/2024 CBC WITH DIFFE RENTI AL/PL ATELE T MCH 29.6 pg 26.6-3 3.0 Not Available [facility] ([facility]) [address], [place], [address], 02/06/2024 08:34:53 02/05/20 24 02/06/2024 CBC WITH DIFFE RENTI AL/PL ATELE T MCHC 33.6 g/dL 31.5-3 5.7 Not Available [facility] ([facility]) [address], [place], [address], 02/06/2024 08:34:53 02/05/20 24 02/06/2024 CBC WITH DIFFE RENTI AL/PL ATELE T RDW 12.1 % 11.7-1 5.4 Not Available [facility] ([facility]) [address], [place], [address], 02/06/2024 08:34:53 02/05/20 24 02/06/2024 CBC WITH DIFFE RENTI AL/PL ATELE T platelets 355 x10e3 /uL 150-45 0 Not Available [facility] ([facility]) [address], [place], [address], 02/06/2024 08:34:53 02/05/20 24 02/06/2024 CBC WITH DIFFE RENTI AL/PL ATELE T neutrophils 29 % notest ab. Not Available [facility] ([facility]) [address], [place], [address], 02/06/2024 08:34:53 02/05/20 24 02/06/2024 CBC WITH DIFFE RENTI AL/PL ATELE T lymphs 63 % notest ab. Not Available [facility] ([facility]) [address], [place], [address], 02/06/2024 08:34:53 02/05/20 24 02/06/2024 CBC WITH DIFFE RENTI AL/PL ATELE T monocytes 5 % notest ab. Not Available [facility] ([facility]) [address], [place], [address], 02/06/2024 08:34:53 02/05/20 24 02/06/2024 CBC WITH DIFFE RENTI AL/PL ATELE T eos 2 % notest ab. Not Available [facility] ([facility]) [address], [place], [address], 02/06/2024 08:34:53 02/05/20 24 02/06/2024 CBC WITH DIFFE RENTI AL/PL ATELE T basos 1 % notest ab. Not Available [facility] ([facility]) [address], [place], [address], 02/06/2024 08:34:53 02/05/20 24 02/06/2024 CBC WITH DIFFE RENTI AL/PL ATELE T neutrophils (absolute) 1.4 x10e3 /uL 1.4-7. 0 Not Available [facility] ([facility]) [address], [place], [address], 02/06/2024 08:34:53 02/05/20 24 02/06/2024 CBC WITH DIFFE RENTI AL/PL ATELE T lymphs (absolute) 3.1 x10e3 /uL 0.7-3. 1 Not Available [facility] ([facility]) [address], [place], [address], 02/06/2024 08:34:53 02/05/20 24 02/06/2024 CBC WITH DIFFE RENTI AL/PL ATELE T monocytes(ab solute) 0.2 x10e3 /uL 0.1-0. 9 Not Available [facility] ([facility]) [address], [place], [address], 02/06/2024 08:34:53 02/05/20 24 02/06/2024 CBC WITH DIFFE RENTI AL/PL ATELE T eos (absolute) 0.1 x10e3 /uL 0.0-0. 4 Not Available [facility] ([facility]) [address], [place], [address], 02/06/2024 08:34:53 02/05/20 24 02/06/2024 CBC WITH DIFFE RENTI AL/PL ATELE T baso (absolute) 0.0 x10e3 /uL 0.0-0. 2 Not Available [facility] ([facility]) [address], [place], [address], 02/06/2024 08:34:53 02/05/20 24 02/06/2024 CBC WITH DIFFE RENTI AL/PL ATELE T immature granulocytes 0 % notest ab. Not Available [facility] ([facility]) [address], [place], [address], 02/06/2024 08:34:53 02/05/20 24 02/06/2024 CBC WITH DIFFE RENTI AL/PL ATELE T immature grans (abs) 0.0 x10e3 /uL 0.0-0. 1 Not Available [facility] ([facility]) [address], [place], [address], 02/06/2024 08:34:53 07/06/19 25 08/16/2024 Tissu e Patho logy biops y repor t pathology report.secti on heading Surgic al Pathol ogy Report Case: [id number] Author izing Provid er: Catrachito Schroeder MD Colle felipe: 2024 11:59 AM Orderi ng Locati on: [facility] - Receiv ed: 2024 01:32 PM Pathol ogy Lab Pathol ogist: Sandi Monsivais MD Specim en: Soft Tissue Mass, Left thumb Case Repor t Surgi bora Patho logy Repor t Case: [id number] Autho lisy spears Provi jason: Kathie Schroeder MD Colle cted: 07/06 11:59 AM Order ing Locat ion: [facility] - Recei mikel: 07/13 01:32 PM Patho logy Lab Patho logis t: Sandi Sandoval MD Speci men: Soft Tissu e Mass, Left thumb 08/16 2:57 PM [facility] Not Available Not Available 08/30/2024 14:01:15 07/06/1908/16/2024 Tissu e Patho logy biops y repor t pathology report final diagnosis narrative Left thumb mass, excisi on (AS25- [id number], 2024): - 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 The mass appear s to be largel y circum scribe d, but it has at least one area where it has irregu lar extens ions into the dermis . There is no obviou s delica te bony periph brianna. The epider mis is uninvo lved, and there are no fragme nts of trabec ular bone. The bulk of the mass has modera tely cellul ar tumor with plump to elonga felipe spindl e cells in a random daina ectura l array. A few areas are marked ly cellul ar. A few areas have round cells with ample cytopl asm. Osteoc last-l madeleine giant cells are focall y common . There is a sugges tion of possib le osteoi d and possib le chondr oid matrix , but most matrix is ordina ry modera tely dense collag en. There are extens carmita stippl ed / dust-l madeleine calcif icatio ns in a serpig inous distri bution . No well-f ormed woven or trabec ular bone is seen. There are up to 9 mitose s per 10 high power hudson (calcu lated 3.8 per mm2). Atypic al mitoti c figure s are not seen. Nuclea r pleomo rphism ranges from minima l to modera te, with occasi onal large freeman -red nucleo li. The cytopl asm is modera te in amount . The H and E histol ogy is not classi c for any entity , but combin es some of the featur es of many entiti es, and some of the featur es are mutual ly exclus carmita in indivi dual entiti es. It is not even certai n whethe r the tumor is of bone or of soft tissue origin . Tenosy novial giant cell tumor (benig n or malign ant), giant cell tumor of soft tissue , ossify ing fibrom yxoid tumor, myosit is ossifi cans, fibrom a of tendon sheath , chondr oblast raz, metapl astic bone in anothe r entity , osteos arcoma all have some featur es of intere st, but the overal l histol ogic patter n does not fit classi c exampl es of any of these entiti es. It has aggres sive featur es and theref ore is worris ome. I suspec t that the neopla sm will requir e molecu lar tests and immuno histol ogic stains not availa ble locall y. Theref ore this case is being sent for review . The result s of the consul tation will be report ed in an amende d report . Micro scopi c Descr iptio n and Comme nt Micro scopi c exami natio n subst antia brennon the final diagn osis. The mass appea rs to be large ly circu mscri bed, but it has at least one area where it has irreg ular exten sions into the dermi s. There is no obvio us delic ate bony perip jere. The epide rmis is uninv olved , and there are no fragm ents of trabe cular bone. The bulk of the mass has moder ately cellu lar tumor with plump to elong ated spind le cells in a rando m archi tectu ral array . A few areas are marke dly cellu lar. A few areas have round cells with ample cytop lasm. Osteo clast -like giant cells are focal ly commo n. There is a sugge stion of possi ble osteo id and possi ble chond roid matri x, but most matri x is ordin ru moder ately dense colla gen. There are exten sive stipp led / dust- like calci ficat ions in a serpi ginou s distr ibuti on. No well- forme d woven or trabe cular bone is seen. There are up to 9 mitos es per 10 high power field s (calc ulate d 3.8 per mm2). Atypi bora mitot ic figur es are not seen. Nucle ar pleom orphi sm range s from minim al to moder ate, with occas ional large cherr y-red nucle lazarus. The cytop lasm is moder ate in amoun t. The H and E histo logy is not class ic for any entit y, but combi elisabeth some of the featu res of many entit ies, and some of the featu res are mutua lly exclu sive in indiv idual entit ies. It is not even certa in [facility] er the tumor is of bone or of soft tissu e origi n. Danyos yregi al giant cell tumor (kyrie gn or malig nant) , giant cell tumor of soft tissu e, ossif nazia fibro myxoi d tumor , myosi tis ossif icans , fibro ma of tendo n sheat h, chond robla stoma , metap lasti c bone in [facility] er entit y, osteo sarco ma all have some featu res of inter est, but the overa ll histo logic christopher rn does not fit class ic examp les of any of these entit ies. It has aggre ssive featu res and there fore is worri some. I suspe ct that the neopl asm will requi re molec ular tests and immun ohist ologi c stain s not avail able local ly. There fore this case is being sent for revie w. The resul ts of the consu ltati on will be repor felipe in an amend ed repor t. 08/16 2:57 PM [facility] Not Available Not Available 08/30/2024 14:01:15 07/06/19 25 08/16/2024 Tissu e Patho logy biops y repor t pathology report relevant history narrative The chandu liao is a 38 year old woman. ([facility] access ion number [id number], block A1). The chandu liao has had left thumb pain and swelli ng for 5 months , and she had been given antibi otics withou t succes s. She has minima l histor y, [facility] but with a benign hyster ectomy . On physic al exam, the left thumb was not erythe matous , was well perfus ed, and didn't have a sensor y defici t. The ulnar aspect of the left thumb had a ~1.4 cm tender deep mass. The XR showed a large expans ile lytic lesion involv ing the majori ty of the tuft and midpor tion of the distal phalan x, with loss of cortex on the distal and ulnar aspect , and with sharpl y define d sclero tic margin s. Subtle calcif icatio ns were noted in the soft tissue beyond the origin al bounds of the bone. Ultras ound showed that the mass was hypoec hoic (1.0 cm) and vascul arized . The surgeo n descri bed the mass as abutti ng and erodin g into the distal phalan x, but didn't think it was attach ed or origin ating from the phalan x. The mass was remove d in fragme nts and the bone resect ion margin curett ed. Clini bora Histo ry The shannon dickey is a 38 year old woman . (outs toni hospi fred acces steven numbe r [id number], block A1). The patibridgett nt has had left thumb pain and swell ing for 5 month s, and she had been given antib iotic s witho ut succe ss. She has minim al histo ry, with a refer ence to cervi bora cance r but with a benig n hyste recto my. On physi bora exam, the left thumb was not eryth emato us, was well perfu sed, and didn' t have a senso ry defic it. The ulnar aspec t of the left thumb had a ~1.4 cm tende r deep mass. The XR showe d a large expan sile lytic lesio n invol ving the major ity of the tuft and midpo rtion of the dista l phala nx, with loss of enzo x on the dista l and ulnar aspec t, and with sharp ly defin ed scler otic germania ns. Subtl e calci ficat ions were noted in the soft tissu e beyon d the origi nal bound s of the bone. Ultra sound showe d that the mass was hypoe choic (1.0 cm) and vascu lariz ed. The surge on descr ibed the mass as abutt ing and erodi ng into the dista l phala nx, but didn' t think it was attac hed or origi natin g from the phala nx. The mass was remov ed in fragm ents and the bone resec tion germania n curet felipe. 08/16 2:57 PM [facility] Not Available Not Available 08/30/2024 14:01:15 07/06/19 25 08/16/2024 Tissu e Patho logy biops y repor t pathology report gross observation narrative The case is a primar y diagno sis of tissue receiv ed and proces sed at [facility], Maddison Jarrell, their access ion number [id number] (07/08) . Provid ed are a single H and E staine d slide A1 , the emily mead g block, and pathol ogy identi ficati on and estrada ng paperw ork. Also receiv ed are pertin ent radiol ogy report s and operat carmita note. The specim en has not been decalc ified. The [facility] gross descri ption: Recei mikel in formal in labele d with the patien t's identi ficati on and left thumb mass is a 2 x 2 x 0.4 cm aggreg ate of elizabeth-wh ite skin and mallea ble nodula r homoge nous pale pink tissue . The larger pieces are bisect ed. The specim en is entire ly submit felipe in casset te A1. Gross Descr iptio n The case is a prima ry diagn osis of tissu e recei mikel and proce ssed at [facility], [place], [place], their acces steven numbe r [id number] (06/23). Provi ded are a singl e H and E stain ed slide A1 , the corre spond ing block , and patho logy ident ifica tion and gross ing paper work. Also recei mikel are perti nent radio logy repor ts and opera tive note. The speci men has not been decal cifie d. The [facility] gross descr iptio n: Rece ived in forma tico label ed with the patie nt's ident ifica tion and left thumb mass is a 2 x 2 x 0.4 [address] of elizabeth-w luis skin and malle able nodul ar homog enous pale pink tissu e. The large r piece s are bisec felipe. The speci men is entir johnathon submi tted in casse tte A1. 08/16 2:57 PM [facility] Not Available Not Available 08/30/2024 14:01:15 07/06/19 25 08/16/2024 Tissu e Patho logy biops y repor t materials received Receiv ed are 1 slide( s) labele d [id number] along with a copy of the outsid e pathol ogy report . The [facility]i als [facility] [place] [address]. All origin al materi als are return ed to the referr ing instit ution, along with a copy of our final report . Mater ials Recei mikel Recei mikel are 1 slide (s) label ed [id number] along with a copy of the outsi de patho logy repor t. The mater ials origi james from [facility] [address] [place] [address] . All origi nal mater ials are retur lo to the refer ring insti tutio n, along with a copy of our final repor t. 08/16 2:57 PM [facility] Not Available Not Available 08/30/2024 14:01:15 07/06/19 25 08/16/2024 Tissu e Patho logy biops y repor t pathology report addendum in specimen narrative The case was sent for consul tation to the Bone and Soft Tissue Pathol ogy sectio n at the [facility] (consu ltatio n perfor med by Dr. Ricky waite, 025). 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 The clinic ally pertin ent portio n of the commen t are as follow s: Overa ll, in the clinic al contex t, the morpho logic findin gs are within the spectr um of so-bora led calcif ied chondr oid mesenc hymal neopla sm. These benign tumors occupy a spectr um with other simila r FN1-re arrang ed neopla sms, includ ing soft tissue chondr omas and, in childr en, calcif nazia aponeu rotic fibrom a. Althou gh consid ered benign , local recurr ences may occur. Close clinic al follow -up is recomm ended. I concur with Dr. Tati waite's diagno sis. Adden dum 1 The case was sent for consu ltati on to the Bone and Soft Tissu e Patho logy secti on at the [facility] (cons ultat ion perfo rmed by Dr. Ricky kearney , 2024) . 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 These benig n tumor s occup y a spect rum with other simil ar FN1-r earra nged neopl asms, inclu ding soft tissu e chond romas and, in child rosie, calci fying apone uroti c fibro ma. Altho h consi dered benig n, local recur rence s may occur . Close clini bora follo w-up is recom chris dBrandin I zanau r with Dr. Pernell kearney 's diagn osis. 08/16 2:57 PM [facility] Adden dum elect suha rodriguez d by Sandi Sandoval MD on 2024 at 2:57 PM Not Available Not Available 08/30/2024 14:01:15 07/06/19 25 08/16/2024 Tissu e Patho logy biops y repor t pathologist location at [facility] Patho logis t Locat ion at [facility] 08/16 2:57 PM [facility] Not Available Not Available 08/30/2024 14:01:15 07/06/19 25 08/16/2024 Tissu e Patho logy biops y repor t service comment The yadira jacques ics of all immuno histoc hemica l and indire ct immuno fluore scence stains (if any) cited in this report were determ ined by the Histop santos tijerina of [facility]. Some of these tests were develo ped by our own jaimee tijerina and have not been cleare d or approv ed by the US Food and Drug Admini strati on. The FDA does not requir e this test to go throug h premar ket FDA review . These tests are used for clinic al purpos es. They should not be regard ed as invest igatio nal or for resear ch. This jaimee tijerina is certif ied under the Clinic angel tijerina Improv ement Amendm ents (CLIA) as qualif ied to yadira [facility] comple xity clinic al jaimee spears. This case has been person ally review ed and interp reted by the attend ing (teach ing) pathol ogist. Discl aimer The perfo rmanc e abdias cteri stics of all immun ohist ochem ical and indir ect immun ofluo resce nce stain s (if any) cited in this repor t were deter mined by the Histo patho logy Labor atory of [facility] . Some of these tests were devel oped by our own labor atory and have not been clear ed or appro mikel by the US Food and Drug Admin istra tion. The FDA does not requi re this test to go throu gh casper rket FDA revie w. These tests are used for clini bora purpo ses. They shoul d not be regar ded as inves tigat ional or for resea rch. This labor atory is certi fied under the Clini bora Labor atory Impro vemen t Amend ments (CLIA ) as quali fied to perfo rm high compl exity clini bora labor atory testi ng. This case has been perso trung revie wed and inter prete d by the [facility]. 08/16 2:57 PM [facility] Not Available Not Available 08/30/2024 14:01:15 07/06/19 25 08/16/2024 Tissu e Patho logy biops y repor t embedded images Embed ded Image s 08/16 2:57 PM [facility] Not Available Not Available 08/30/2024 14:01:15 08/26/19 24 08/26/2023 MAMMO , scree jessica, bilat eral No observ ation record ed. [email or web address] [facility] [address], [place], [address], 08/27/2023 08:59:47 11/11/19 24 10/21/2023 upper endos copy proce dure (EGD) (PROC ) No observ ation record ed. Not Available 11/11 14:42:34 01/02/20 24 12/31/2023 CT, abdom en + pelvi s, w/o contr ast No observ ation record ed. [facility] [address], [place], [address], 01/04/2024 15:31:41 07/30/19 25 07/30/2024 XR, finge r(s) No observ ation record ed. [address], [place], [address], 08/10/2024 17:27:29 08/31/19 25 08/30/2024 XR, finge r(s), 2 or more view No observ ation record ed. [facility] [address], [place], [address], 08/31/2024 11:05:05 Result Notes None recorded. Problems Name Problem SNOMED Code Status Onset Date Resolution Date Notes Provider Name and Address Organization Details Recorded Time History of total hysterecto my 553283381 Active 202202/07/2023 KATARZYNA KEVIN Attn: Teena spears,[address] [facility], [place], [address], [place] - S[facility] 3 15:51:56 Hyperlipid emia 34648964 Active 2022 KATARZYNA KEVIN Attn: Teena g,[address] [facility], [place], [address], [place] [facility] 3 15:51:56 Gastroesop hageal reflux disease without esophagiti s 660510522 Active 2022 KATARZYNA KEVIN Attn: Teena g,[address] [facility], [place], [address], [place] [facility] 3 10:38:25 Screening for malignant neoplasm of colon Active 2023 records in chart completed 01/19/24, repeat in 5 yrs KATARZYNA KEVIN Attn: Teena g,[address] [facility], [place], [address], [place] [facility] 4 10:03:57 Depressive disorder 20424738 Active [address] Attn: Teena spears,[address] [facility], [place], [address], [facility] - [facility] 3 15:51:56 Anger reaction 453322829 Active KATARZYNA KEVIN Attn: Teena spears,[address] [facility], [place], [address], [facility] - SI 3 15:51:55 Hyperchole sterolemia 08266904 Active 2015 KATARZYNA KEVIN Attn: Teena spears,[address] [facility], [place], [address], [facility] - [facility] 3 15:51:55 Problem Notes None recorded. Procedures Surgical History Date Name Laterality Status Provider Name and Address Organization Details Recorded Time 02/08/20 total hysterectomy completed KATARZYNA KEVIN Attn: Accounting,[address] [facility], [place], [address], [facility] 05/20/2023 10:41:24 Imaging Results Imaging Date Name Status LastModified by Organiz ation Details LastModified Time 08/26/2023 MAMMO, screening, bilateral completed [email or web address], [address], 08/27/2023 08:59:47 10/21/2023 upper endoscopy procedure (EGD) (PROC) completed Information not available 11/12/2023 14:42:34 12/31/2023 CT, abdomen + pelvis, w/o contrast completed [address], [address], 01/04/2024 15:31:41 07/30/2024 XR, finger(s) completed [email or web address], [address], 08/10/2024 17:27:29 08/30/2024 XR, finger(s), 2 or more view completed [facility] [address], [place], [address], 08/31/2024 11:05:05 Procedure Notes None recorded. Medical Equipment None [...] mass index (BMI) Body weight Body temperature Respiratory rate Pain severity - 0-10 verbal numeric rating [Score] - Reported Oxygen saturation Oxygen saturation in Arterial blood by Pulse oximetry Heart rate Systolic blood pressure Diastolic blood pressure Provider Name and Address Organization Details Last Updated DateTime 4 160.02 cm 27.8 kg/m2 86619 g 98.3 [degF] 18 /min 0 98 % 98 % 90 /min 118 mm[Hg] 82 mm[Hg] Tyra Davis LPN [facility] 4 15:06:49 Date Recorded Body height Body mass index (BMI) Body weight Heart rate Body temperature Systolic blood pressure Diastolic blood pressure Provider Name and Address Organization Details Last Updated DateTime 4 160.02 cm 30.1 kg/m2 92963.7 g 87 /min 98.1 [degF] 127 mm[Hg] 78 mm[Hg] Jagruti Rosenborn [facility] 4 15:42:18 Date Recorded Body height Body mass index (BMI) Body weight Oxygen saturation Oxygen saturation in Arterial blood by Pulse oximetry Heart rate Respiratory rate Systolic blood pressure Diastolic blood pressure Provider Name and Address Organization Details Last Updated DateTime 4 160.02 cm 30.5 kg/m2 09443.5 9 g 98 % 98 % 83 /min 17 /min 113 mm[Hg] 78 mm[Hg] Teena Lira MA [facility] 4 09:55:01 Date Recorded Body height Body mass index (BMI) Body weight Heart rate Body temperature Systolic blood pressure Diastolic blood pressure Provider Name and Address Organization Details Last Updated DateTime 5 160.02 cm 30.6 kg/m2 62051.4 8 g 78 /min 97.2 [degF] 131 mm[Hg] 82 mm[Hg] Jagruti Lazar [facility] 5 14:13:28 Date Recorded Body height Oxygen saturation Oxygen [...] 0 18 /min 98.2 [degF] 30.8 kg/m2 20825.0 7 g 134 mm[Hg] 76 mm[Hg] Tyra Davis LPN [facility] 5 10:57:48 Social History Question Answer Notes LastModified by Organizat ion Details LastModified Time Tobacco Smoking Status Never Smoker DANNIELLE Cho [facility] 11/11/2016 11:04:56 Do You Have An Advance [...] Or The Highest Degree You Have Received? 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 No Information not available 05/12/2023 What Was [...] mL or 25mcg/0.25 mL dose 05/20/2022 completed Юлия Cardoza MA [facility] 05/20/2022 14:52:23 Past Encounters Encounter ID Performer Location Encounter Start Date Encounter Closed Date Diagnosis/Indication Diagnosis SNOMED-CT Code Diagnosis ICD10 Code Diagnosis Note [id number] Fabienne [facility] (Adult/Fa m Med) [address] [place] [address] 03/20/2016 12:40:10 03/22/2016 12:20:32 Depressive disorder 27593449 F32.0 Anger reaction 089605629 R45.4 Screening for disorder 466624052 Z13.9 [id number] Fabienne [facility] (Adult/Fa m Med) [address] [place] [address] 05/08/2016 15:35:46 05/13/2016 13:21:41 Anger reaction 218335341 R45.4 Depressive disorder 3548 9007 F32.0 Hyperlipidemia 53653781 E78.5 [id number] [facility] [address] [place] [address] 11/11/2016 10:16:33 12/05/2016 11:04:10 Gynecologic examination 39469949 Z01.[address] Dexter 2015 No results available advised to have results sent to computer to con't [employer] services r\t D. 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 Pain of breast 40839351 N64.4 duration progressin g from 1-2 years; exam today tenderness noted advised to RTO 30 days decrease intake of fatty meats more vegy & fruits. Screening for malignant neoplasm of breast 736353778 Z12.31 [id number] Fabienne [facility] (Adult/Fa m Med) [address] [place] [address] 11/19/2016 15:13:32 11/20/2016 16:37:59 High risk sexual behavior 796010780 Z72.51 [id number] [facility] (Adult/Fa m Med) [address] [place] [phone] 11/21/2016 16:33:27 11/22/2016 09:50:06 Trichomonal vaginitis 082082348 A59.00 [id number] [facility] (Adult/Fa m Med) [address] [place] [address] 12/11/2016 12:21:24 12/17/2016 16:40:00 Screening for disorder 090149086 Z13.9 Hyperlipidemia 77450278 E78.5 [id number] [facility] [address] [place] [address] 12/12/2016 10:38:23 01/16/2017 10:43:53 Pain of breast 25378977 N64.4 duration progressin g from 1-2 years; exam today tenderness noted advised to RTO 30 days decrease intake of fatty meats more vegy & fruits. History of dysplasia of cervix 993399379 Z87.410 with endometrio sis\ & total hysterecto my [id number] [facility] [address] [place] [address] 05/20/2022 13:47:24 05/22/2022 14:49:45 Administration of SARS-CoV-2 mRNA vaccine 9125881510 Z23 [id number] KATARZYNA KEVIN [facility] [address] [place] [address] 02/11/2023 10:12:29 02/11/2023 12:24:57 Depression screening 681961390 Z13.31 PHQ 0 Overweight 938519268 E66 .3 discussed increasing exercise and healthier food options, high protein, low fat dietroutin e labs History of total hysterectomy 559525114 Z90.710 02/07/[address] García at [facility] due to vaginal bleedingth ought she had total hysterecto my in [facility], scars healing wellhas f/u in 2 wkswill request recordsf/u in 1 mo Nodule of lung 694856914 R91.1 told inpatient6 mm in left lower lobewill request records Lesion of spleen 1392283 001 34357 D73.89 told inpatient4 mm on spleen, told it was cyst or hemangioma will request records [id number] KATARZYNA KEVIN [facility] [address] [place] [address] 03/14/2023 09:46:06 03/17/2023 16:05:15 History of total hysterectomy 536045658 Z90.710 03/14/23:6 wk post op f/u FABIANA next week 02/11/23: by Dr. García at [facility] due to vaginal bleedingth ought she had total [facility]recto my in [facility], scars healing wellhas f/u in 2 wkswill request recordsf/u in 1 mo Nodule of lung 866496248 R91.1 per ED records:CT abd/pelvis limited evaluation of lower thorax- 4 mm nodule in left lower lobediscus sed with pt, she is not a smoker, no sxpt would like to be referred to pulm Gastroesop hageal reflux disease without esophagitis 500890842 K21.9 x1 moacid running up and down her throatwors e at nighteatin g dinner at 8 PM and sleeping by 9 PMrec'd to eat dinner earliertri al PPI Cervical lymphadenopathy 748789985 R59.0 x3 monthsL sided supramandi bularstate s that nodule pops out and pt has to push it back inunable to talk or swallow when this occursorde red US neck Splenic cyst 38382327 D7 3.[address] abd/pelvis during ED visit6 mm low density lesion of spleen, likely cyst or hemangioma reassured pt, no concerning findings Depression screening 171 751159 Z13.31 PHQ 0 [id number] CRISSY COLÓN [facility] [address] [place] [address] 05/12/2023 09:16:56 05/13/2023 11:52:25 Acid reflux 261614941 K21.9 x 4 monthspant oprazole 20 mg QD, helping but still having symptoms. Recommend increasing dose to 40 mg QD.If no improvemen t with max daily dose of PPI, may consider EGD eval Epigastric pain 35521771 R10.13 Hiatal hernia 64629227 K 44.9 likely not the cause of her symptoms given size. Would not recommend surgical consult at this time. [id number] KATARZYNA KEVIN [facility] [address] [place] [address] 05/20/2023 09:53:19 05/20/2023 10:20:39 History of total hysterectomy 977785683 Z90.710 05/10/23:h as f/u in 1 mo, rec'd consult note from [facility] 03/14/23:6 wk post op f/u FABIANA next week 02/11/23: by Dr. García at [facility] due to vaginal bleedingth ought she had total hysterecto my in 2009 [facility], scars healing wellhas f/u in 2 wkswill request recordsf/u in 1 mo Nodule of lung 474380348 R91.1 05/20/23:h as appt on 07/02/[address] Jara 03/14/23:pe r ED records:CT abd/pelvis limited evaluation of lower thorax- 4 mm nodule in left lower lobediscus sed with pt, she is not a smoker, no sxpt would like to be referred to pulm Gastroesop hageal reflux disease without esophagitis 498719692 K21.9 05/20/23:f ollowing with GI- increased pantoprazo le to 40 mg and h pylori negative 03/14/23:x1 moacid running up and down her throatwors e at nighteatin g dinner at 8 PM and sleeping by 9 PMrec'd to eat dinner earliertri al PPI Depression screening 171 759338 Z13.31 PHQ 0 Screening for malignant neoplasm of breast 088645978 Z12.39 has script for mammogram from [facility] Feeling of lump in throat 129578946 R09.89 05/20/23:U S neck normalstil l c/o sensation on something stuck in her throatwill refer to ENT 03/14/23:x3 monthsL sided supramandi bular LADstates that nodule pops out and pt has to push it back inunable to talk or swallow when this occursorde red US neck Hyperlipidemia 86616473 E78.5 05/20/23:r e-check today 02/12/23:LD L 201total 265start atorre-pato ck lipid in 3 mo Prediabetes 250000294 R7 3.03 05/20/23:r e-check today 01/2023: a1c 5.9 [id number] Fabien Mock MD [facility] [address] [place] [address] 06/30/2023 16:16:10 07/02/2023 14:47:41 Chronic sialadenitis 813794118 K11.23 follow-up after CT scan [id number] Maciel Jara MD [facility] [address] [place] [address] 07/02/2023 15:10:32 2023 14:10:27 Nodule of lung 430324786 R91.[address] Gastroesop hageal reflux disease 979970731 K21.9 Pantoprazo le Solitary n odule of lung 845468098 R91.1 [id number] Maciel Jara MD [facility] [address] [place] [address] 09/17/2023 14:52:54 09/18/2023 08:52:12 Nodule of lung 471336839 R91.[address] Gastroesop hageal reflux disease 705665203 K21.9 Pantoprazo le Solitary n odule of lung 966733599 R91.1 [id number] CRISSY COLÓN [facility] [address] [place] [address] 01/05/2024 15:18:16 01/06/2024 07:41:20 Hematochezia 344514427 K92.1 SNEHA performed at ER didn't show anything per patient. Recommend colonoscop y eval and will check stool samples for further eval [id number] KATARZYNA KEVIN [facility] [address] [place] [address] 02/05/2024 09:47:34 02/05/2024 10:12:25 Gastroesophageal reflux disease without esophagitis 586569340 K21.9 02/04/24: doing well with pantoprazo le 40 05/20/23:f ollowing with GI- increased pantoprazo le to 40 mg and h pylori negative 03/14/23:x1 moacid running up and down her throatwors e at nighteatin g dinner at 8 PM and sleeping by 9 PMrec'd to eat dinner earliertri al PPI Obesity 423704862 E66.8 BMI 30.5routin e labs Hyperlipidemia 76852455 E78.5 02/05/24: refill and due for lipid panel 05/20/23:r e-check today 02/12/23:LD L 201total 265start atorre-pato ck lipid in 3 mo Nodule of lung 421637567 R91.1 02/05/24: following with pulm, monitoring nodules more on R than left with yearly scans 05/20/23:h as appt on 07/02/[address] Jara 03/14/23:pe r ED records:CT abd/pelvis limited evaluation of lower thorax- 4 mm nodule in left lower lobediscus sed with pt, she is not a smoker, no sxpt would like to be referred to pulm Feeling of lump in throat 453706009 R09.89 02/05/24: following with GI, EGD 09/2023- suspected gastropare sis 05/20/23:U S neck normalstil l c/o sensation on something stuck in her throatwill refer to ENT 03/14/23:x3 monthsL sided supramandi bular LADstates that nodule pops out and pt has to push it back inunable to talk or swallow when this occursorde red US neck Depression screening 171 607207 Z13.31 PHQ 0 Screening for malignant neoplasm of breast 251010525 Z12.39 completed 08/2023, nl Screening for malignant neoplasm of colon 461528988 Z12.11 01/19/24, records in chart, repeat 2028 [id number] CRISSY COLÓN [facility] [address] [place] [address] 08/23/2024 13:50:27 08/23/2024 14:29:44 Chronic gastritis 7450375 K29.50 EGD 10/21/2023: active chronic gastritis. Revisit pantoprazo le. Patient to work on decreasing to once/day dosing. F/u 6 months Diverticul osis of colon 437757706 K57.30 continue fiber Internal hemorrhoids 904 28724 K64.8 continue fiber [id number] Maciel Jara MD [facility] [address] [place] [address] 09/01/2024 10:42:54 09/01/2024 11:46:09 Nodule of lung 104145271 R91.[address] Gastroesop hageal reflux disease 864491269 K21.9 Pantoprazo le Solitary n odule of lung 137676790 R91.1 Health Concerns Section Related Observation LastModified by Organization Detai ls LastModified Time None Recorded Concern Status LastModified by Organization Details LastModified Time None Recorded Advance Directives Directive N: Payers Encounter Date Sequence Insurance Name Policy Number Policy Cordova Covered Member ID Cordova Member ID Guarantor Name 09/17/2023 1 [facility] ON OR AFTER 12/21/20 (MEDICAID REPLACEMENT - HMO) Roderick Briseno [id number] Roderick Briseno 01/05/2024 1 [facility] ON OR AFTER 12/21/20 (MEDICAID REPLACEMENT - HMO) Roderick Briseno [id number] Roderick Briseno 02/05/2024 1 [facility] ON OR AFTER 12/21/20 (MEDICAID REPLACEMENT - HMO) Roderick Briseno [id number] Roderick Briseno 08/23/2024 1 [facility] ON OR AFTER 12/21/20 (MEDICAID REPLACEMENT - HMO) Roderick Briseno [id number] Roderick Briseno 09/01/2024 1 [facility] ON OR AFTER 12/21/20 (MEDICAID REPLACEMENT - HMO) Roderick Briseno [id number] Roderick Briseno Notes Date Note Type Note Provider Name and Address Organization Details Recorded Time 09/17/2023 text/html follow for Lung noduleIt was an incidental findings on CT of abdomen.Has granulomas of spleenlife time non smokern[place] coughno known mold exposurereview chest CT with patient Maciel Jara MD [address] [place], [address], [facility] 09/17/2023 15:19:41 01/05/2024 text/html Patient presents today for ER follow up. Went to [facility] 12/31/23 for painless rectal bleeding. Patient states she bled December 28, , , , and . ER performed SNEHA that was unremarkable. No issues with hemorrhoids lately. 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 Patient states blood is bright red, discolors water bowl, on toilet paper, and in stool. BMs float. Unsure if there's oil or mucus. Praful anorectal itching or burning. CRISSY COLÓN [address], [place], [address], [place] [facility] 01/05/2024 16:05:11 02/05/2024 text/html Pt presents for med refills and 6 mo f/u. Reports that she had colonoscopy done 3 wks ago and has not been called with results. She is taking pantoprazole BID with improvement of GERD. Pt is following with Pulm for lung nodules. Denies fever, chills, chest pain, SOB, n/v/d, abd pain, dizziness, weakness, or headaches. KATARZYNA KEVIN Attn: Accounting,[address] , [place], [address], [facility] 02/05/2024 12:34:00 08/23/2024 text/html Patient presents today for follow up. Has been without pantoprazole due to insurance issues and noticed increase in acid, spitting up, and coughing. Worse at night. Bowel symptoms improved after colonoscopy. Tries to eat more fiber. CRISSY COLÓN [address], [place], [address], [facility] 08/23/2024 14:22:51 09/01/2024 text/html follow for Lung nodule It was an incidental findings on CT of abdomen. Has granulomas of spleen life time non smoker no cough no known mold exposure review chest CT from 07/2023 Maciel Jara MD [address], [place], [address], [facility] 09/01/2024 11:35:27 OBGyn Episode No OBEpisode recorded.
--- OUTSIDE RECORDS SUMMARY | 2024-09-01 16:41 | XMS_ITS | Patient Health Summary ---
Author Organization [facility] Address [address] [place] [address] Care Team Providers Care Telex Operator Name Role Phone Unavailable Primary Care Provider Unavailabl e Note from [facility],non-owned Affiliates and Associated Physician Practices is amultiple site organization consisting of ambulatory clinics and hospital sitesin [place], [place], [place] and [place]. This disclosure is being madepursuant to the Care Everywhere program and may not contain all information available regarding this patient. Last updated 18.[facility] Social History Tobacco Use Types Packs/Day Years Used Date Smoking Tobacco: Never Assessed Sex and Gender Information Value Date Recorded Sex Assigned at Not on file Gender Identity Not on file Sexual Orientation Not on file Procedures * PATHOLOGY TISSUE(Performed 07/06/2024) Performed for Illness, unspecified Results * PATHOLOGY TISSUE (07/06/2024 11:59 AM PATENTS EXAMINER) Case Report Surgical Pathology Report Case: [id number] Authorizing Provider: Catrachito Schroeder MD Collected: 07/06/2024 11:59 AM Ordering Location: 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 08/16/2024 2:57 PM [facility] Clinical History The patient is a 38 year old woman. ([facility] accession number [id number], block A1). The patient has had left [...] bone resection margin curetted. 08/16/2024 2:57 PM [facility] Gross Description The case is a primary diagnosis of tissue received and processed at [place], [place], their accession number [id number] (2024). Provided are a single H and E stained slide A1 , the corresponding block, and pathology identification and grossing paperwork. Also received are pertinent radiology reports and operative note. The specimen has not been decalcified. The [facility] gross description: Received in formalin labeled with the patient's identification and left thumb mass is a 2 x 2 x 0.4 cm aggregate of elizabeth-white skin and malleable nodular homogenous pale pink tissue. The larger pieces are bisected. The specimen is entirely submitted in cassette A1. 08/16/2024 2:57 PM [facility] Materials Received Received are 1 slide(s) labeled [id number] along with a copy of the outside pathology report. [place] [address]. All original materials are returned to the referring institution, along with a copy of our final report. 08/16/2024 2:57 PM [facility] Addendum 1 The case was sent fo r consultation to the Bone and Soft Tissue Pathology section at the [facility] (consultation performed by Dr. Ricky Cash, 08/09/2024). Their diagnosis is: Soft tissue, left thumb, excision: - Calcified chondroid mesenchymal neoplasm (see comment) The [facility] consultation is scanned into this report, [...] with Dr. Cash's diagnosis. 08/16/2024 2:57 PM [facility] Addendum electronically signed by Sandi Mckay MD on 08/16/2024 at 2:57 PM Pathologist Location at [facility] 08/16/2024 2:57 PM [facility] Disclaimer The performance characteristics of all immunohistochemical and indirect immunofluorescence stains (if any) cited in this report were determined by the Histopathology Laboratory of [facility]. Some of these tests were developed [...] the attending (teaching) pathologist. 08/16/2024 2:57 PM [facility] Embedded Images 08/16/2024 2:57 PM [facility] Pathology/Cytolo gy SOFT TISSUE MASS / Unknown 07/06/2024 11:59 AM PATENTS EXAMINER 07/13/2024 1:32 PM PATENTS EXAMINER Catrachito Schroeder MD LAB - PATHOLOGY/CYTO LOGY ORDERABLES Performing Organization Address City/State/[facility] Co de Phone Number [facility] [address] [place], [place] [id number] [place] [address]
--- OUTSIDE RECORDS SUMMARY | 2024-09-01 16:41 | XMS_ITS | Referral Summary ---
Author Organization [facility] Address [address] [place] [address] Care Team Providers Care Animal Surgeon Name Role Phone Unavailable Primary Care Provider Unavailabl e Source Comments [facility],non-owned Affiliates and Associated Physician Practices is amultiple site organization consisting of ambulatory clinics and hospital sitesin [place], [place], [place] and [place]. This disclosure is being madepursuant to the Care Everywhere program and may not contain all information available regarding this patient. Last updated 18.[facility] Encounters Date Type Department Care Team Description 07/13/2024 Lab Requisition [facility] - Pathology Lab [address] [place] [address] Catrachito Schroeder MD Illness, unspecified from Last [...] PATHOLOGY TISSUE Routine 07/06/2024 11:5 9 AM BOOM TRUCK DRIVER Illness, unspecified from Last 3 Months Results * PATHOLOGY TISSUE (07/06/2024 11:59 AM BOOM TRUCK DRIVER) Case Report Surgical Pathology Report Case: [id number] Authorizing Provider: Catrachito Schroeder MD Collected: 07/06/2024 11:59 AM Ordering Location: [facility] - Received: 07/13/2024 01:32 PM Pathology Lab Pathologist: Sandi Mckay MD Specimen: Soft Tissue Mass, Left thumb 08/16/2024 2:57 PM BOOM TRUCK DRIVER [facility] Final Diagnosis Left thumb mass, excision ([id number], 2024): - Spindle cell neoplasm (see description) 08/16/2024 2:57 PM [facility] Microscopic Description and Comment [...] an amended report. 08/16/2024 2:57 PM [facility] Clinical History The patient is a 38 year old woman. ([facility] accession number [id number], block A1). The patient has had left [...] resection margin curetted. 08/16/2024 2:57 PM [facility] Gross Description The case is a primary diagnosis of tissue received and processed at [place], [place], their accession number [id number] (2024). Provided are a single H and E stained slide A1 , the corresponding block, and pathology identification and grossing paperwork. Also received are pertinent radiology reports and operative note. The specimen has not been decalcified. The [facility] gross description: Received in formalin labeled with the patient's identification and left thumb mass is a 2 x 2 x 0.4 cm aggregate of elizabeth-white skin and malleable nodular homogenous pale pink tissue. The larger pieces are bisected. The specimen is entirely submitted in cassette A1. 08/16/2024 2:57 PM [facility] Materials Received Received are 1 slide(s) labeled [id number] along with a copy of the outside pathology report. [place] [address]. All original materials are returned to the referring institution, along with a copy of our final report. 08/16/2024 2:57 PM [facility] Addendum 1 The case was sent fo r consultation to the Bone and Soft Tissue Pathology section at the [facility] (consultation performed by Dr. Ricky Cash, 08/09/2024). Their diagnosis is: Soft tissue, left thumb, excision: - Calcified chondroid mesenchymal neoplasm (see comment) The [facility] consultation is scanned into this report, [...] Dr. Cash's diagnosis. 08/16/2024 2:57 PM [facility] Addendum electronically signed by Sandi Mckay MD on 08/16/2024 at 2:57 PM Pathologist Location at [facility] 08/16/2024 2:57 PM [facility] Disclaimer The performance characteristics of all immunohistochemical and indirect immunofluorescence stains (if any) cited in this report were determined by the Histopathology Laboratory of [facility]. Some of these tests were developed [...] attending (teaching) pathologist. 08/16/2024 2:57 PM [facility] Embedded Images 08/16/2024 2:57 PM [facility] Pathology/Cytolo gy SOFT TISSUE MASS / Unknown 07/06/2024 11:59 AM BOOM TRUCK DRIVER 07/13/2024 1:32 PM BOOM TRUCK DRIVER Catrachito Schroeder MD LAB - PATHOLOGY/CYTO LOGY ORDERABLES [facility] [address] [place] [address], [facility] [phone] from Last 3 Months
--- OUTSIDE RECORDS SUMMARY | 2024-09-01 16:41 | XMS_ITS | Encounter Summary ---
Author Organization [facility] Address [address] [place] [address] Care Team Providers Care Laboratory Sampler Name Role Phone Unavailable Primary Care Provider Unavailabl e Encounter Details Date Type Department Care Team (Late st Contact Info) Description 07/13/2024 Lab Requisition [facility] - Pathology Lab [address] [place] [address] Catrachito Schroeder MD [address] [address] Illness, unspecified Social History Tobacco [...] PATHOLOGY TISSUE Routine 07/06/2024 11:5 9 AM TIPPLE REPAIRER Illness, unspecified documented in this encounter Results * PATHOLOGY TISSUE (07/06/2024 11:59 AM TIPPLE REPAIRER) Case Report Surgical Pathology Report Case: [id number] Authorizing Provider: Catrachito Schroeder MD Collected: 07/06/2024 11:59 AM Ordering Location: [facility] - Received: 07/13/2024 01:32 PM Pathology Lab Pathologist: Sandi Mckay MD Specimen: Soft Tissue Mass, Left thumb 08/16/2024 2:57 PM TIPPLE REPAIRER [facility] Final Diagnosis Left thumb mass, excision ([id number], 2024): - Spindle cell neoplasm (see description) 08/16/2024 2:57 PM TIPPLE REPAIRER [facility] Microscopic Description and Comment [...] patient is a 38 year old woman. ([facility] accession number [id number], block A1). The patient has had left [...] diagnosis of tissue received and processed at [place], [place], their accession number [id number] (2024). Provided are a single H and E stained slide A1 , the corresponding block, and pathology identification and grossing paperwork. Also received are pertinent radiology reports and operative note. The specimen has not been decalcified. The [facility] gross description: Received in formalin labeled [...] Materials Received Received are 1 slide(s) labeled [id number] along with a copy of the outside pathology report. [place] [address]. All original materials are returned to the referring institution, along with a copy of our final report. 08/16/2024 2:57 PM [facility] Addendum 1 The case was sent fo r consultation to the Bone and Soft Tissue Pathology section at the [facility] (consultation performed by Dr. Ricky Cash, 08/09/2024). Their diagnosis is: Soft tissue, left thumb, excision: - Calcified chondroid mesenchymal neoplasm (see comment) The [facility] consultation is scanned into this report, and [...] 08/16/2024 at 2:57 PM Pathologist Location at [facility] 08/16/2024 2:57 PM [facility] Disclaimer The performance characteristics of all immunohistochemical and indirect immunofluorescence stains (if any) cited in this report were determined by the Histopathology Laboratory of [facility]. Some of these tests were [...] TISSUE MASS / Unknown 07/06/2024 11:59 AM TIPPLE REPAIRER 07/13/2024 1:32 PM TIPPLE REPAIRER Catrachito Schroeder MD LAB - PATHOLOGY/CYTO LOGY ORDERABLES [facility] [address] [place] [address], [facility] [phone] documented in this encounter Visit Diagnoses Diagnosis Illness, unspecified documented in this encounter
== END 2024-09-01 14:46 | disposition home or self-care (01) ==
LOC: ANHIMG 14:48
PROVIDERS: PCP Physician Assistant; Visit Provider Physician Assistant
DX: Z12.31 Encounter for screening mammogram for malignant neoplasm of breast (principal)
CPT/HCPCS: 77063; 77067

== ENCOUNTER 2024-10-04 08:36 | Outpatient (CLI) | payer OTHER, SELFPAY ==
--- NOTE | ~2024-10-04 | XR_ITS ---
XR finger 1st LT min 2V Ordering provider: Glo Fermin PA-C History: . R22.32 - Localized swelling, mass and lump, left upper limb . Comparison: August 30, 2024 FINDINGS: BONES: No acute fracture or dislocation. Erosive changes in the distal phalanx of the first finger un changed from previous examination. JOINT SPACES: Normal. SOFT TISSUES: Soft tissue swelling in the distal phalanx of the first finger. IMPRESSION: Erosive changes in the distal phalanx unchanged from previous examination. Reviewed, dictated and finalized at location A.
--- OUTSIDE RECORDS SUMMARY | 2024-10-04 08:59 | XMS_ITS | Clinical Summary ---
Author Organization [facility] Address [address] [place] [address] Care Team Providers Care Capacity Planning Analyst Name Role Phone Unavailable Primary Care Provider Unavailabl e Source Comments [facility],non-owned Affiliates and Associated Physician Practices is amultiple site organization consisting of ambulatory clinics and hospital sitesin [place], [place], [place] and [place]. This disclosure is being madepursuant to the Care Everywhere program and may not contain all information available regarding this patient. Last updated 18.[facility] Encounters Date Type Department Care Team Description 07/13/2024 Lab Requisition [facility] - Pathology Lab [address] [place] [address] Catrachito Schroeder MD Illness, unspecified from Last 3 Months Social History Tobacco Use Types Packs/Day Years Used Date Smoking Tobacco: Never Assessed Comments Unknown Sex and Gender Information Value Date Recorded Sex Assigned at Not on file Legal Sex Female 5:32 AM BUSINESS COORDINATOR Gender Identity Not on file Sexual Orientation Not on file Plan of Treatment Health Maintenance Due Date Last Done Comments LIPID TESTING 1983 MAMMOGRAM 1983 PAP SMEAR 1983 HIV SCREENING 1998 HEPATITIS C SCREENING 07/03/2001 DTAP/TDAP/TD VACCINES (1 - Tdap) 2002 HEPATITIS B VACCINE (1 of 3 - 19+ 3-dose series) 2002 COVID-19 VACCINE ( - 2023-2 5 season) 2024 DEPRESSION SCREENING 06/23/2024 INFLUENZA VACCINE (Season Ended) 2025 ZOSTER VACCINE (1 of 2) 2033 HIB [...] PATHOLOGY TISSUE Routine 07/06/2024 11:5 9 AM BUSINESS COORDINATOR Illness, unspecified from Last 3 Months Results * PATHOLOGY TISSUE (07/06/2024 11:59 AM BUSINESS COORDINATOR) Case Report Surgical Pathology Report Case: [id number] Authorizing Provider: Catrachito Schroeder MD Collected: 07/06/2024 11:59 AM Ordering Location: [facility] - Received: 07/13/2024 01:32 PM Pathology Lab Pathologist: Sandi Mckay MD Specimen: Soft Tissue Mass, Left thumb 08/16/2024 2:57 PM BUSINESS COORDINATOR [facility] Final Diagnosis Left thumb mass, excision ([id number], 2024): - Spindle cell neoplasm (see description) 08/16/2024 2:57 PM [facility] Microscopic Description and Comment Microscopic [...] in an amended report. 08/16/2024 2:57 PM [facility] Clinical History The patient is a 38 year old woman. ([facility] accession number [id number], block A1). The patient has had left [...] bone resection margin curetted. 08/16/2024 2:57 PM [facility] Gross Description The case is a primary diagnosis of tissue received and processed at [place], [place], their accession number [id number] (2024). Provided are a single H and E stained slide A1 , the corresponding block, and pathology identification and grossing paperwork. Also received are pertinent radiology reports and operative note. The specimen has not been decalcified. The [facility] gross description: Received in formalin labeled with the patient's identification and left thumb mass is a 2 x 2 x 0.4 cm aggregate of elizabeth-white skin and malleable nodular homogenous pale pink tissue. The larger pieces are bisected. The specimen is entirely submitted in cassette A1. 08/16/2024 2:57 PM [facility] Materials Received Received are 1 slide(s) labeled [id number] along with a copy of the outside pathology report. [place] [address]. All original materials are returned to the referring institution, along with a copy of our final report. 08/16/2024 2:57 PM [facility] Addendum 1 The case was sent fo r consultation to the Bone and Soft Tissue Pathology section at the [facility] (consultation performed by Dr. Ricky Cash, 08/09/2024). Their diagnosis is: Soft tissue, left thumb, excision: - Calcified chondroid mesenchymal neoplasm (see comment) The [facility] consultation is scanned into this report, [...] with Dr. Cash's diagnosis. 08/16/2024 2:57 PM [facility] Addendum electronically signed by Sandi Mckay MD on 08/16/2024 at 2:57 PM Pathologist Location at [facility] 08/16/2024 2:57 PM [facility] Disclaimer The performance characteristics of all immunohistochemical and indirect immunofluorescence stains (if any) cited in this report were determined by the Histopathology Laboratory of [facility]. Some of these tests were [...] the attending (teaching) pathologist. 08/16/2024 2:57 PM BUSINESS COORDINATOR [facility] Embedded Images 08/16/2024 2:57 PM BUSINESS COORDINATOR [facility] Pathology/Cytolo gy SOFT TISSUE MASS / Unknown 07/06/2024 11:59 AM BUSINESS COORDINATOR 07/13/2024 1:32 PM BUSINESS COORDINATOR Catrachito Schroeder MD LAB - PATHOLOGY/CYTOLOGY ORDERAB LES Edited Result - Final [facility] [address] [place] [address], [facility] [phone] from Last 3 Months Insurance [facility]
--- OUTSIDE RECORDS SUMMARY | 2024-10-04 08:59 | XMS_ITS | Encounter Summary ---
Author Organization [facility] Address [address] [place] [address] Care Team Providers Care Orthodontist Name Role Phone Unavailable Primary Care Provider Unavailabl e Encounter Details Date Type Department Care Team (Late st Contact Info) Description 07/13/2024 Lab Requisition [facility] - Pathology Lab [address] [place] [id number] Catrachito Schroeder MD [address] [address] Illness, unspecified Social History Tobacco Use Types Packs/Day Years Used Date Smoking Tobacco: Never Assessed Comments Unknown Sex and Gender Information Value Date Recorded Sex Assigned at Not on file Legal Sex Female 5:32 AM CLAIMS INVESTIGATOR Gender Identity Not on file Sexual Orientation Not on file documented as of this encounter Plan of Treatment Not on file documented as of this encounter Procedures Procedure Name Priority Date/Time Associated Diagnosis Comments PATHOLOGY TISSUE Routine 07/06/2024 11:5 9 AM CLAIMS INVESTIGATOR Illness, unspecified documented in this encounter Results * PATHOLOGY TISSUE (07/06/2024 11:59 AM CLAIMS INVESTIGATOR) Case Report Surgical Pathology Report Case: [id number] Authorizing Provider: Catrachito Schroeder MD Collected: 07/06/2024 11:59 AM Ordering Location: [facility] - Received: 07/13/2024 01:32 PM Pathology Lab Pathologist: Sandi Mckay MD Specimen: Soft Tissue Mass, Left thumb 08/16/2024 2:57 PM CLAIMS INVESTIGATOR [facility] Final Diagnosis Left thumb mass, excision ([id number], 2024): - Spindle cell neoplasm (see description) 08/16/2024 2:57 PM CLAIMS INVESTIGATOR [facility] Microscopic Description and Comment Microscopic [...] in an amended report. 08/16/2024 2:57 PM [facility] Clinical History The patient is a 38 year old woman. ([facility] accession number [id number], block A1). The patient has had left [...] bone resection margin curetted. 08/16/2024 2:57 PM [facility] Gross Description The case is a primary diagnosis of tissue received and processed at [place], [place], their accession number [id number] (2024). Provided are a single H and E stained slide A1 , the corresponding block, and pathology identification and grossing paperwork. Also received are pertinent radiology reports and operative note. The specimen has not been decalcified. The [facility] gross description: Received in formalin labeled with the patient's identification and left thumb mass is a 2 x 2 x 0.4 cm aggregate of elizabeth-white skin and malleable nodular homogenous pale pink tissue. The larger pieces are bisected. The specimen is entirely submitted in cassette A1. 08/16/2024 2:57 PM [facility] Materials Received Received are 1 slide(s) labeled [id number] along with a copy of the outside pathology report[place] [address]. All original materials are returned to the referring institution, along with a copy of our final report. 08/16/2024 2:57 PM [facility] Addendum 1 The case was sent fo r consultation to the Bone and Soft Tissue Pathology section at the [facility] (consultation performed by Dr. Ricky Cash, 08/09/2024). Their diagnosis is: Soft tissue, left thumb, excision: - Calcified chondroid mesenchymal neoplasm (see comment) The [facility] consultation is scanned into this report, and [...] with Dr. Cash's diagnosis. 08/16/2024 2:57 PM [facility] Addendum electronically signed by Sandi Mckay MD on 08/16/2024 at 2:57 PM Pathologist Location at [facility] 08/16/2024 2:57 PM [facility] Disclaimer The performance characteristics of all immunohistochemical and indirect immunofluorescence stains (if any) cited in this report were determined by the Histopathology Laboratory of [facility]. Some of these tests were developed [...] the attending (teaching) pathologist. 08/16/2024 2:57 PM [facility] Embedded Images 08/16/2024 2:57 PM [facility] Pathology/Cytolo gy SOFT TISSUE MASS / Unknown 07/06/2024 11:59 AM CLAIMS INVESTIGATOR 07/13/2024 1:32 PM CLAIMS INVESTIGATOR us Catrachito Schroeder MD LAB - PATHOLOGY/CYTOLOGY ORDERAB LES Edited Result - Final [facility] [address] [facility] [place] [address], [facility] [phone] documented in this encounter Visit Diagnoses Diagnosis Illness, unspecified documented in this encounter
--- OUTSIDE RECORDS SUMMARY | 2024-10-04 08:59 | XMS_ITS | Continuity of Care Document ---
Author Organization [facility] Address [address] [facility] [address] [place] [address] Phone Care Team Providers Care Channel Supervisor Name Role Phone Goel OD, Dylan Unavailable Unavailable Procedures Procedure Date Eye Exam Established Pt Advance Directives Directive Yes / No Effective Date File Name No Information Encounters Encounter Description Practice Location Reason(s) For Visit Diagnoses Date Provider Providers Copied on Encounter [facility], [address], [place], [place], [id number], [place] tel:[phone] [facility] No Information 2-200 8 Goel OD Dylan. [address], [place], [address], [place]. tel:[phone] Family History Family Member Type Diagnosis Age At Onset No Information Payers Payer name Insurance type Covered democrat ID Authoriza tion(s) Medicaid [facility] [id number] Social History Type Description Quantity Date Captured [...]
--- OUTSIDE RECORDS SUMMARY | 2024-10-04 08:59 | XMS_ITS | CONTINUITY OF CARE DOCUMENT ---
Author Name dallin zamarripa Address Unknown Organization [facility] Address [address] [facility] [address] [place] [address] Phone [phone] Care Team Providers Care Family Resource Management Professor Name Role Phone Cody WHITAKER, Robert Unavailable [phone] Robert Ross MD Unavailable [phone] INSURANCE PROVIDERS Payer name Policy type / Coverage type Danny red green party ID [id number] MEDICAID (2) Medicaid [id number]
--- OUTSIDE RECORDS SUMMARY | 2024-10-04 08:59 | XMS_ITS | Clinical Summary ---
Author Organization [facility] Address [address] [place] [address] Care Team Providers Care Patent Leather Sorter Name Role Phone Anisa Fierro PA-C Primary Care Provider [phone] Allergies No known active allergies Medications No known medications Social History Tobacco Use Types Packs/Day Years [...] Comments Blood Pressure 146/96 06/24/2024 10:36 AM ELECTROMECHANICAL ASSEMBLER Pulse 73 06/24/2024 10:36 AM ELECTROMECHANICAL ASSEMBLER Temperature 36.9 C (98.5 F) 06/24/2024 10:36 AM ELECTROMECHANICAL ASSEMBLER Respiratory Rate 20 06/24/2024 10:36 AM ELECTROMECHANICAL ASSEMBLER Oxygen Saturation 100% 06/24/2024 10:36 AM ELECTROMECHANICAL ASSEMBLER Inhaled Oxygen Concentration - - Weight 80.5 kg (177 lb 7.5 oz) 06/24/2024 10:36 AM ELECTROMECHANICAL ASSEMBLER Height 160 cm (5' 3 ) 06/24/2024 10:36 AM ELECTROMECHANICAL ASSEMBLER Body Mass Index 31.44 06/24/2024 10:36 AM ELECTROMECHANICAL ASSEMBLER Plan of Treatment Health Maintenance Due Date [...] 2024 05/20/2022, 04/27/2021, 10/13/2020, Additional history exists Hepatitis B Vaccines Completed 05/26/1998, 02/10/1998, 12/09/1997 [...] 5 Years) and At-Risk Patients (6 to 49 Years) Aged Out No longer eligible based on patient's age to complete this topic RSV Immunizations Under 20 Months Aged Out No longer eligible based on patient's age to complete this topic Insurance Care Teams Patent Leather Sorter Relationship Specialty Start Date End Date Anisa Fierro PA-C [address] [place] [id number] PCP - General PHYSICIAN VACUUM CLEANER OPERATOR 06/24/24
== END 2024-10-04 08:37 | disposition home or self-care (01) ==
PROVIDERS: Visit Provider Physician Assistant Surgical
DX: R22.32 Localized swelling, mass and lump, left upper limb (principal)
CPT/HCPCS: 73140

== ENCOUNTER 2024-10-14 15:15 | Outpatient (RCR) | payer OTHER, SELFPAY ==
--- NOTE | 2024-09-07 10:02 | OTOPEVAL1 ---
Assessment and note entered by Agus George, TARASR/Jimmy, CHT OT Evaluation Information 09/07/24 Assessment Status Evaluation Diagnosis R22.32 Localized swelling, mass and lump, left UE Subjective Information Patient is s/p mass excision on the left thumb . She reports residual hypersensitivity to the thumb stating she is unable to tolerate anything to touch this area. She is unable to use this thumb to press a button on her remote. Reported Pain Level Pain Score 4: Self Report Additional Pain Score Comments 4/10 pain at rest. She reports the pain can get up to 10/10 if the thumb is bumped. Assessment OT Clinical Summary Patient referred to OT with a decline in left hand /thumb use following radical excision left thumb mass 07/08/24. She presents with residual soft tissue restriction, hypersensitivity, and weakness that prohibits return to functional pinching, gripping, and hand use. Issued active/passive ROM, putty, and desensitization HEP. She demonstrates excellent understanding. Continued follow up indicated to maximize functional use of her left hand. Plan of Care Interventions Therapeutic Exercise,Manual Therapy,Therapeutic Activities,Paraffin OT Services Indicated Yes Treatment Frequency and 1x/week for 4 visits Duration These treatments will address the objective and functional deficits as defined above. The patient will be advanced safely and appropriately in order for the patient to progress towards his/her prior level of function. Additional exercises will be introduced and as well as a comprehensive home exercise program upon discharge, if needed, to ensure carryover of functional gains achieved in the clinic. This treatment plan has been reviewed and agreement upon by the patient.
--- NOTE | 2024-09-07 10:03 | OPREHPOC ---
Outpatient Therapy Plan of Care This is a Multidisciplinary Plan of Care that may contain components documented by all disciplines (PT, OT, and ST.) OT Problem 1 OT Problem #1 Knowledge Deficit OT Goal 1 Goal / Goal Update Patient to be independent with instructed materials. Target Visit 4 OT Problem 2 OT Problem #2 Pain OT Goal 1 Goal / Goal Update Patient to be able to use left hand during ADLs ( opening containers, self care, etc.) with left thumb pain 2/10 or less. Target Visit 4 OT Problem 3 OT Problem #3 Impaired Flexibility OT Goal 1 Goal / Goal Update Patient to improve functional flexibility of the left thumb to be able to complete serial opposition, touching the thumb to each finger tip. Target Visit 4
--- NOTE | 2024-10-14 15:59 | OTOPDC ---
Assessment and note entered by Agus George, TARASR/Jimmy, CHT OT Discharge Summary 10/14/24 Diagnosis R22.32 Localized swelling, mass and lump, left UE ICD-10 Condition Codes (OT) Pain in left hand M79.642 Subjective Information Patient is s/p mass excision on the left thumb . She reports good progress with reduced sensitivity to the thumb, reporting she can now use the thumb to pinch and black pickler items with less discomfort. She is now able to press a button on her remote. She is trying to use this thumb for as much as possible. She is feeling stronger and compliant with her HEP. Reported Pain Level Pain Score 0: Self Report Additional Pain Score Comments No pain, just some sensitivity at scar site. Assessment OT Clinical Summary Patient referred to OT with a decline in left hand /thumb use following radical excision left thumb mass 07/08/24. She has made excellent progress with flexibility, strength, and use. She has progressed to symmetrical ROM as the right thumb. She is using her thumb to pinch and push during ADLs with less pain and sensitivity. She is independent with HEP for flexibility, strength, and desensitization. No further skilled OT indicated at this time. Plan of Care OT Services Indicated No
== END 2024-10-14 16:55 | disposition home or self-care (01) ==
LOC: ANHOT 15:15
PROVIDERS: PCP Physician Assistant; Visit Provider Physician Assistant Surgical
DX: R22.32 Localized swelling, mass and lump, left upper limb (principal)
CPT/HCPCS: 97018; 97110; 97140; 97165

== ENCOUNTER 2025-01-06 10:38 | Outpatient (CLI) | payer OTHER, SELFPAY ==
--- NOTE | ~2025-01-06 | XR_ITS ---
XR finger 1st LT min 2V Ordering provider: Glo Fermin PA-C History: . R22.32 - Localized swelling, mass and lump, left upper limb . Comparison: None. FINDINGS: BONES: Erosive changes seen in the distal phalanx of the left thumb suggestive of a soft tissue mass. The differential include ganglion or synovial cyst, giant cell tumor, fibroma and glomus tumor. Furt her evaluation advised. JOINT SPACES: Normal. IMPRESSION: No acute osseous abnormality. Erosive lesion seen in the distal phalanx of the left thumb. Differential as described above. Further evaluation advised. Reviewed, dictated and finalized at location A. IMPRESSION: No acute osseous abnormality. Erosive lesion seen in the distal phalanx of the left thumb. Differential as de scribed above. Further evaluation advised.
--- OUTSIDE RECORDS SUMMARY | 2025-01-06 10:53 | XMS_ITS | Referral Summary ---
Author Organization [facility] Address [address] [place] [address] Care Team Providers Care Bowling Teacher Name Role Phone Anisa Fierro Primary Care Provider [phone] Encounters Date Type Department Care Team Description 12/03/2024 9:34 AM CDT - 12/03/2024 11:59 PM CDT Hospital Encounter [facility] [address] [address] Solitary pulmonary nodule Discharge Disposition: Discharge to home or self care from Last 3 Months Allergies No known active allergies Social History Tobacco Use Types Packs/Day Years Used Date Smoking Tobacco: Never Assessed Comments Unknown Sex and Gender Information Value Date Recorded Sex Assigned at Not on file Legal Sex Female 2:42 PM CDT Gender Identity Not on file Sexual Orientation Not on file Plan of Treatment Not on file Procedures Procedure Name Priority Date/Time Associated Diagnosis Comments PET/CT FDG SKULL TO THIGH Schedule Routine, Read Routine (OP Routine) 12/03/2024 11:15 AM CDT Solitary pulmonary nodule POCT GLUCOSE DEVICE Routine 12/03/2024 9:54 AM CDT from Last 3 Months Results * PET/CT FDG Skull to Thigh (12/03/2024 11:15 AM CDT) Anatomical Region Laterality Modality N/A Positron Emissio n Tomography (PET) 12/03/2024 2:10 PM CDT Narrative 12/03/2024 2:37 PM CDT EXAM DESCRIPTION: PET/CT FDG SKULL TO THIGH RADIOPHARMACEUTICAL: 11.1 mCi F-18 Fluorodeoxyglucose (FDG) via a left antecubital vein IV site REASON FOR STUDY: Pulmonary nodule evaluation. TECHNIQUE: The patient's fasting blood glucose level, measured by glucometer before injection of FDG, was 112 mg/dL. After intravenous administration of FDG, noncontrast CT images were obtained for attenuation correction and for fusion with emission PET images to allow for anatomical localization of PET findings. Emission PET images were then obtained. The reported standardized uptake value maximum (SUVmax) values have been normalized to body weight (SUVbw). The area imaged spanned the region from the skull base to the proximal thigh . The time from injection of FDG to start of imaging was 61 minutes. COMPARISON: CT chest 09/22/2024 FINDINGS: For reference, the maximum SUV of the ascending thoracic aorta is 3 . The maximum SUV of the liver is 3.8 . Head: Normal FDG uptake is seen in the included portion of the brain. Neck: Physiologic uptake is present in the paired lymphoid structures. No hypermetabolic lymphadenopathy. Chest: A right paratracheal lymph node measuring 1.1 x 0.7 cm has an SUV of 6. A right hilar lymph node measuring 2.1 x 1.6 cm has an SUV of 11.7. A nonenlarged right supraclavicular lymph node has an SUV of 2.7. Nonenlarged right axillary lymph node has an SUV of 2.8. The nodule in the anterior right upper lobe measures 0.9 x 0.6 cm with an SUV of 4.1. This previously measured 1.1 x 1 cm when remeasured. Peripheral areas of ground-glass in the right upper lobe are new and show no significant FDG uptake. Noncalcified 3 mm nodule in the right middle lobe is unchanged and shows no abnormal uptake. Noncalcified 5 mm nodule in the anterior left lower lobe is new and shows no significant FDG uptake. Heart size within normal limits. No significant coronary artery calcification. No pericardial or pleural effusion. Abdomen and Pelvis: No focal hypermetabolic liver lesion. No calcified gallstones. The spleen is normal. Normal pancreas without focal FDG activity. No focal hypermetabolic adrenal lesion. Normal genitourinary activity. The bladder is decompressed and incompletely evaluated. Normal gastrointestinal activity is seen. No hypermetabolic lymph nodes in the abdomen or pelvis. Right adnexal lesion measuring 2 cm with central photopenia and peripheral increased FDG uptake with an SUV of 7.8. This is favored to be physiologic in this age group. Small amount of free pelvic fluid. Bones: No acute or aggressive appearing osseous lesions. IMPRESSION: 1. Hypermetabolic right upper lobe pulmonary nodule measuring 0.9 x 0.6 cm with an SUV of 4.1. This nodule previously measured 1.1 x 1 cm and remains indeterminate. This could be resolving infectious etiology but malignancy should also be considered. Small differences in measurement could be technical. Short-term follow-up with CT is recommended if a more invasive workup is not pursued. 2. Hypermetabolic right hilar and right paratracheal lymph nodes are also indeterminate. 3. Nonenlarged right supraclavicular and right axillary lymph nodes show mild FDG uptake and are indeterminate but favored to be reactive. 4. Peripheral areas of ground-glass in the right upper lobe are new and show no significant FDG uptake. This is favored to be post infectious or post inflammatory in etiology. 5. Noncalcified 5 mm nodule in the anterior left lower lobe is new and shows no significant FDG uptake. Attention on follow-up imaging is recommended. 6. Right adnexal lesion measuring 2 cm with central photopenia and peripheral increased FDG uptake. This is favored to be physiologic in this age group. Small amount of free pelvic fluid. Could consider pelvic ultrasound if clinically warranted. THIS IS AN ELECTRONICALLY VERIFIED FINAL REPORT 12/03/2024 2:37 PM - Electronically signed by Caden Lanier M.D. LB: FEDE Report ID: [id number] Reading Location: [id number] Procedure Note Caden Lanier MD - 12/03/2024 EXAM DESCRIPTION: PET/CT FDG SKULL TO THIGH RADIOPHARMACEUTICAL: 11.1 mCi F-18 Fluorodeoxyglucose (FDG) via a left antecubital vein IV site REASON FOR STUDY: Pulmonary nodule evaluation. TECHNIQUE: The patient's fasting blood glucose level, measured byglucometer before injection of FDG, was 112 mg/dL. After intravenous administrationof FDG, noncontrast CT images were obtained for attenuation correction andfor fusion with emission PET images to allow for anatomical localization ofPET findings. Emission PET images were then obtained. The reportedstandardized uptake value maximum (SUVmax) values have been normalized to body weight (SUVbw). The area imaged spanned the region from the skull base to the proximal thigh . The time from injection of FDG to start of imaging was61 minutes. COMPARISON: CT chest 09/22/2024 FINDINGS: For reference, the maximum SUV of the ascending thoracic aortais 3 . The maximum SUV of the liver is 3.8 . Head: Normal FDG uptake is seen in the included portion of the brain. Neck: Physiologic uptake is present in the paired lymphoid structures. No hypermetabolic lymphadenopathy. Chest: A right paratracheal lymph node measuring 1.1 x 0.7 cm has an SUV of 6. A right hilar lymph node measuring 2.1 x 1.6 cm has an SUV of 11.7. A nonenlarged right supraclavicular lymph node has an SUV of 2.7.Nonenlarged right axillary lymph node has an SUV of 2.8. The nodule in the anterior right upper lobe measures 0.9 x 0.6 cm with anSUV of 4.1. This previously measured 1.1 x 1 cm when remeasured. Peripheral areas of ground-glass in the right upper lobe are new and show nosignificant FDG uptake. Noncalcified 3 mm nodule in the right middle lobe isunchanged and shows no abnormal uptake. Noncalcified 5 mm nodule in the anteriorleft lower lobe is new and shows no significant FDG uptake. Heart size within normal limits. No significant coronary artery calcification. No pericardial or pleural effusion. Abdomen and Pelvis: No focal hypermetabolic liver lesion. No calcified gallstones. The spleen is normal. Normal pancreas without focal FDG activity. No focal hypermetabolic adrenal lesion. Normal genitourinary activity. Thebladder is decompressed and incompletely evaluated. Normal gastrointestinalactivity is seen. No hypermetabolic lymph nodes in the abdomen or pelvis. Right adnexal lesion measuring 2 cm with central photopenia and peripheralincreased FDG uptake with an SUV of 7.8. This is favored to be physiologic in thisage group. Small amount of free pelvic fluid. Bones: No acute or aggressive appearing osseous lesions. IMPRESSION: 1. Hypermetabolic right upper lobe pulmonary nodule measuring 0.9 x 0.6cm with an SUV of 4.1. This nodule previously measured 1.1 x 1 cm andremains indeterminate. This could be resolving infectious etiology but malignancy should also be considered. Small differences in measurement could be technical. Short-term follow-up with CT is recommended if a more invasive workup is not pursued. 2. Hypermetabolic right hilar and right paratracheal lymph nodes arealso indeterminate. 3. Nonenlarged right supraclavicular and right axillary lymph nodes show mild FDG uptake and are indeterminate but favored to be reactive. 4. Peripheral areas of ground-glass in the right upper lobe are new andshow no significant FDG uptake. This is favored to be post infectious or post inflammatory in etiology. 5. Noncalcified 5 mm nodule in the anterior left lower lobe is new andshows no significant FDG uptake. Attention on follow-up imaging isrecommended. 6. Right adnexal lesion measuring 2 cm with central photopenia and peripheral increased FDG uptake. This is favored to be physiologic in thisage group. Small amount of free pelvic fluid. Could consider pelvicultrasound if clinically warranted. THIS IS AN ELECTRONICALLY VERIFIED FINAL REPORT 12/03/2024 2:37 PM - Electronically signed by Caden Lanier M.D. LB: FEDE Report ID: [id number] Reading Location: [place] [address] Maciel Jara MD IMG PET PROCEDURES Final Result * POCT glucose (12/03/2024 9:54 AM CDT) Glucose, POC 112 70 - 199 mg/dL Comment:Testing performed by : [facility], [address] [place] [address], [place]., [address] Blood 12/03/2024 9:54 AM CDT 12/03/2024 9:54 AM CDT Maciel Jara MD LAB POCT ORDERABLES - DEVICE Fin al Result [facility] [address] [facility] Department [place] [address] from Last [address] [facility] Care Teams Bowling Teacher Relationship Specialty Start Date End Date Anisa Fierro PA [address] [place] [id number] PCP - General Physician Assisted Living Administrator 11/19/24
--- OUTSIDE RECORDS SUMMARY | 2025-01-06 10:53 | XMS_ITS | Clinical Summary ---
Author Organization [facility] Address [address] [place] [address] Care Team Providers Care Garden Machinery Mechanic Name Role Phone Anisa Fierro Primary Care Provider Allergies No known active allergies Encounters Date Type Department Care Team Description 12/03/2024 9:34 AM CDT - 12/03/2024 11:59 PM CDT Hospital Encounter [facility] [address] [address] Solitary pulmonary nodule Discharge Disposition: Discharge to home or self care from Last 3 Months Social History Tobacco Use Types Packs/Day Years Used Date Smoking Tobacco: Never Assessed Comments Unknown Sex and Gender Information Value Date Recorded Sex Assigned at Not on file Legal Sex Female 2:42 PM CDT Gender Identity Not on file Sexual Orientation Not on file Plan of Treatment Health Maintenance Due Date Last Done Comments Breast Cancer Screening-Mammogram 1983 Cervical Cancer Screening 1983 Depression Screening 1983 Hepatitis C Screening 1983 DTaP/Tdap/Td Vaccine (5 - Tdap) 1994 12/31/1993, 04/30/1989, 01/23/1989, Additional history exists Varicella Vaccines (1 of 2 - 13+ 2-dose series) 1996 Regular Well Visit/Exam 18-64 2001 Covid-19 Vaccine ( season) 2024 04/03/2023, 05/20/2022, 04/27/2021, Additional history exists Influenza Vaccine (Season Ended) 2025 Hepatitis B Screening Completed 05/26/1998 , 02/10/1998, 12/09/1997 HPV Vaccines Aged Out No longer eligi ble based on patient's age to complete this topic Pneumococcal vaccine <65 Aged Out No longer eligible based on [...] Electronically signed by Caden Lanier M.D. LB: LB Report ID: [id number] Reading Location: [id number] Procedure Note Caden Lanier MD - 12/03/2024 [...] Caden Lanier M.D. LB: FEDE Report ID: [id number] Reading Location: [id number] Maciel Jara MD IMG PET PROCEDURES Final Result * POCT glucose (12/03/2024 9:54 AM CDT) [facility] Signature Glucose, POC 112 70 - 199 mg/dL Comment:Testing performed by : [facility], [address] [place] [address]., [id number] Blood 12/03/2024 9:54 AM CDT 12/03/2024 9:54 AM CDT Maciel Jara MD LAB POCT ORDERABLES - DEVICE Fin al Result Performing Organization Address City/State/[facility] Co de Phone Number [place] [phone] [facility] Department [place] [address] from Last 3 Months Insurance [facility] Care Teams Garden Machinery Mechanic Relationship Specialty Start Date End Date Anisa Fierro PA [address] [place] [id number] PCP - General Physician Electrical Electronics Technician 11/19/24
--- OUTSIDE RECORDS SUMMARY | 2025-01-06 10:54 | XMS_ITS | Continuity of Care Document ---
Author Organization [facility] Address [address] [facility] [address] [place] [address] Phone Care Team Providers Care Career Development Director Name Role Phone Goel OD, Dylan Unavailable Unavailable Procedures Procedure Date Eye Exam Established Pt Advance Directives Directive Yes / No Effective Date File Name No Information Encounters Encounter Description Practice Location Reason(s) For Visit Diagnoses Date Provider Providers Copied on Encounter [facility], [address], [place], [place], [id number], [place] tel:[phone] [facility] No Information 2-200 8 Goel OD Dylan. [address] , [address], [place], [address], [place]. tel:[phone] Family History Family Member Type Diagnosis Age At Onset No Information Payers Payer name Insurance type Covered libertarian ID Authoriza tion(s) Medicaid [facility] [id number] Social History Type Description Quantity Date Captured [...]
--- OUTSIDE RECORDS SUMMARY | 2025-01-06 10:54 | XMS_ITS | Clinical Summary ---
Author Organization [facility] Address [address] [place] [id number] Care Team Providers Care Registration Clerk Name Role Phone Anisa Fierro PA-C Primary Care Provider [phone] Allergies No known active allergies Medications No [...] Comments Blood Pressure 146/96 06/24/2024 10:36 AM [employer] Pulse 73 06/24/2024 10:36 AM [employer] Temperature 36.9 C (98.5 F) 06/24/2024 10:36 AM [employer] Respiratory Rate 20 06/24/2024 10:36 AM [employer] Oxygen Saturation 100% 06/24/2024 10:36 AM [employer] Inhaled Oxygen Concentration - - Weight 80.5 kg (177 lb 7.5 oz) 06/24/2024 10:36 AM [employer] Height 160 cm (5' 3) 06/24/2024 10:36 AM [employer] Body Mass Index 31.44 06/24/2024 10:36 AM [employer] Plan of Treatment Health Maintenance Due Date [...] to complete this topic Insurance Care Teams Registration Clerk Relationship Specialty Start Date End Date Anisa Fierro PA-C [address] [place] [phone] PCP - General [employer]YSIC[employer] 06/24/24
--- OUTSIDE RECORDS SUMMARY | 2025-01-06 10:54 | XMS_ITS | Data Portability ---
Author Organization [facility]elia[facility] Address [address] [place] [address] Care Team Providers Care Steam Hand Name Role Phone MARCELO BUENROSTRO Primary Care Provider Assessment No assessment recorded. Plan of Treatment Reminders Order Date Submit Date Provider Last Modified By Organization Details Last Modified Time Details Appointments ANY 2024 11:45A M Maciel Jara MD Not available Not available Not available ANY 2024 08:30A M CRISSY COLÓN Not available Not available Not available ANY 2024 10:15A M Maciel Jara MD Not available Not available Not available Lab CMP, serum or plasma 2023 024 HAPPY JACK [facility], [address], [place], [address], 02/06/2024 08:34:52 CBC w/ auto diff 2023 024 HAPPY JACK [facility], [address], [place], [address], 02/06/2024 08:34:53 TSH + free T4, serum 2023 024 HAPPY JACK [facility], [address], [place], [address], 02/06/2024 08:34:51 HbA1c (hemoglo bin A1c), blood 2023 024 DAVIAN [facility], [address], [place], [address], 02/06/2024 08:34:53 lipid panel, serum 2023 024 HAPPY JACK [facility], [address], [place], [address], 02/06/2024 08:34:52 H pylori Ag, stool 2023 024 [facility] (Lab), [address], [place], [address], 08/08/2024 05:02:31 pancreat ic elastase , stool 2023 024 [facility] (Lab), [address], [place], [address], 08/08/2024 05:02:31 O&P (ova & parasite s), stool 2023 024 [facility] (Lab), [address], [place], [address], 01/07/2024 16:10:54 celiac disease comprehe nsive panel, serum 2023 024 [facility] (Lab), [address], [place], [address], 08/08/2024 05:02:31 giardia + cryptosp oridium Ag, stool 2023 024 [facility] (Lab), [address], [place], [address], 01/07/2024 16:10:55 C diff screen, stool, reflex PCR 2023 024 [facility] (Lab), [address], [place], [address], 08/08/2024 05:02:31 calprote ctin, stool 2023 024 [facility] (Lab), [address], [place], [address], 08/08/2024 05:02:31 Referral None recorded . Procedures colonosc opy procedur e (PROC) - patien t to follow up 2-3 weeks after colonosc opy Is patient on blood thinners ?: N Pacemake r or defibril lator?: N Prep (Colonos copy Procedur e): PEG 3350, Go Lytely, Colyte or Gavalyte G, dependin g on insuranc e coverage If patient has had coronary / vascular stent, provide date: No If patient has had heart attack or stroke, provide date: No Has patient ever had problems with anesthes ia or sedation ?: No Has patient had problems with opening mouth or breathin g tubes?: No Does patient use a wheelcha ir?: N 2023 024 [facility] (Surgery Sched), [address], [place], [address], 01/06/2024 13:05:26 Surgeries None recorded . Imaging PFT, complete 2024 025 [facility] (Rad), [address], [place], [address], 12/01/2024 04:24:32 CT, chest, w/o contrast - Provider wants test done in 07/2024. 2024 025 [facility] (Rad), [address], [place], [address], 09/22/2024 13:39:25 Medication Orders pantopra zole 40 mg tablet,d elayed release 2024 025 HAPPY JACK [id number], [address] [facility], [place], [place], [id number], 08/23/2024 14:16:40 atorvast atin 40 mg tablet 2023 [facility] #[id number], [address], [place], [id number], 02/05/2024 10:06:45 Dulcolax (bisacod yl) 5 mg tablet,d elayed release 2023 024 [facility] #[id number], [address], [place], [id number], 02/05/2024 10:03:52 Miralax 17 gram/dos e oral powder 2023 024 [facility] #[id number], [address], [place], [id number], 02/05/2024 10:03:51 Patient TargetsNo targets recorded. Patient Instructions Encounter Date Encounter Id Patient Instructions Last Modified By Organization Details Last Modified Time 01/05/2024 [id number] RL About Your Colonoscopy 1 Day Prep [email or web address] Not available 01/05/2024 15:49:37 02/05/2024 [id number] A healthy lifestyle: care instructions [email or web address] Not available 02/05/2024 10:06:36 Reason for Referral None Reported. Results Created Date Observation Date Name Description Value Unit Range Abnormal Flag Note LastModifiedBy Organization Detail LastModifiedTime 02/05/2002/06/2024 TSH+F REE T4 TSH 2.280 uIU/m L 0.450- 4.500 Not Available [facility] ([facility]) [address], [place], [address], 02/06/2024 08:34:51 02/05/2002/06/2024 TSH+F REE T4 T4,free(dire ct) 1.14 NG/dL 0.82-1 .77 Not Available [facility] ([facility]) [address], [place], [address], 02/06/2024 08:34:51 02/05/2002/06/2024 LIPID PANEL WITH LDL/H DL RATIO cholesterol, total 146 mg/dL 100-19 9 Not Available [facility] ([facility]) [address] [place], [address], 02/06/2024 08:34:52 02/05/20 24 02/06/2024 LIPID PANEL WITH LDL/H DL RATIO triglyceride s 76 mg/dL 0-149 Not Available [facility] ([facility]) [address] [place], [address], 02/06/2024 08:34:52 02/05/20 24 02/06/2024 LIPID PANEL WITH LDL/H DL RATIO HDL cholesterol 48 mg/dL >39 Not Available [facility] ([facility]) [address], [place], [address], 02/06/2024 08:34:52 02/05/20 24 02/06/2024 LIPID PANEL WITH LDL/H DL RATIO VLDL cholesterol bora 15 mg/dL 5-40 Not Available [facility] ([facility]) [address], [place], [address], 02/06/2024 08:34:52 02/05/20 24 02/06/2024 LIPID PANEL WITH LDL/H DL RATIO LDL chol calc (nih) 83 mg/dL 0-99 Not Available [facility] ([facility]) [address] [place], [address], 02/06/2024 08:34:52 02/05/20 24 02/06/2024 LIPID PANEL WITH LDL/H DL RATIO LDL/HDL ratio 1.7 ratio 0.0-3. 2 LDL/H DL Ratio Men Women 1/2 Avg.R isk 1.0 1.5 Avg.R isk 3.6 3.2 2X Avg.R isk 6.2 5.0 3X Avg.R isk 8.0 6.1 Not Available [facility] ([facility]) [address] [place], [address], 02/06/2024 08:34:52 02/05/20 24 02/06/2024 COMP. METAB OLIC PANEL (14) glucose 93 mg/dL 70-99 Not Available [facility] ([facility]) [address], [place], [address], 02/06/2024 08:34:52 02/05/20 24 02/06/2024 COMP. METAB OLIC PANEL (14) BUN 17 mg/dL 6-24 Not Available [facility] ([facility]) [address], [place], [address], 02/06/2024 08:34:52 02/05/20 24 02/06/2024 COMP. METAB OLIC PANEL (14) creatinine 1.12 mg/dL 0.57-1 .00 above high normal Not Available [facility] ([facility]) [address], [place], [address], 02/06/2024 08:34:52 02/05/20 24 02/06/2024 COMP. METAB OLIC PANEL (14) eGFR 64 mL/mi n/1.7 3 >59 Not Available [facility] ([facility]) [address] [place], [address], 02/06/2024 08:34:52 02/05/20 24 02/06/2024 COMP. METAB OLIC PANEL (14) BUN/creatini ne ratio 15 9-23 Not Available [facility] ([facility]) [address], [place], [address], 02/06/2024 08:34:52 02/05/20 24 02/06/2024 COMP. METAB OLIC PANEL (14) sodium 139 mmol/ L 134-14 4 Not Available [facility] ([facility]) [address] [place], [address], 02/06/2024 08:34:52 02/05/20 24 02/06/2024 COMP. METAB OLIC PANEL (14) potassium 4.5 mmol/ L 3.5-5. 2 Not Available [facility] ([facility]) [address] [place], [address], 02/06/2024 08:34:52 02/05/20 24 02/06/2024 COMP. METAB OLIC PANEL (14) chloride 104 mmol/ L 96-106 Not Available [facility] ([facility]) [address] [place], [address], 02/06/2024 08:34:52 02/05/20 24 02/06/2024 COMP. METAB OLIC PANEL (14) carbon dioxide, total 20 mmol/ L 20-29 Not Available [facility] ([facility]) [address], [place], [address], 02/06/2024 08:34:52 02/05/20 24 02/06/2024 COMP. METAB OLIC PANEL (14) calcium 9.0 mg/dL 8.7-10 .2 Not Available [facility] ([facility]) [address], [place], [address], 02/06/2024 08:34:52 02/05/20 24 02/06/2024 COMP. METAB OLIC PANEL (14) protein, total 6.8 g/dL 6.0-8. 5 Not Available [facility] ([facility]) [address], [place], [address], 02/06/2024 08:34:52 02/05/20 24 02/06/2024 COMP. METAB OLIC PANEL (14) albumin 4.0 g/dL 3.9-4. 9 Not Available [facility] ([facility]) [address] [place], [address], 02/06/2024 08:34:52 02/05/20 24 02/06/2024 COMP. METAB OLIC PANEL (14) globulin, total 2.8 g/dL 1.5-4. 5 Not Available [facility] ([facility]) [address], [place], [address], 02/06/2024 08:34:52 02/05/20 24 02/06/2024 COMP. METAB OLIC PANEL (14) bilirubin, total 0.3 mg/dL 0.0-1. 2 Not Available [facility] ([facility]) [address] [place], [address], 02/06/2024 08:34:52 02/05/20 24 02/06/2024 COMP. METAB OLIC PANEL (14) alkaline phosphatase 70 IU/L 44-121 Not Available [facility] ([facility]) [address], [place], [address], 02/06/2024 08:34:52 02/05/20 24 02/06/2024 COMP. METAB OLIC PANEL (14) AST (SGOT) 19 IU/L 0-40 Not Available [facility] ([facility]) [address], [place], [address], 02/06/2024 08:34:52 02/05/20 24 02/06/2024 COMP. METAB OLIC PANEL (14) ALT (SGPT) 20 IU/L 0-32 Not Available [facility] ([facility]) [address] [place], [address], 02/06/2024 08:34:52 02/05/20 24 02/06/2024 HEMOG LOBIN A1C hemoglobin A1C 6.1 % 4.8-5. 6 above high normal Predi abete s: 5.7 - 6.4 Diabe brennon: >6.4 Glyce verito contr ol for adult s with diabe brennon: <7.0 Not Available [facility] ([facility]) [address], [place], [address], 02/06/2024 08:34:53 02/05/20 24 02/06/2024 CBC WITH DIFFE RENTI AL/PL ATELE T WBC 4.9 x10e3 /uL 3.4-10 .8 Not Available [facility] ([facility]) [address], [place], [address], 02/06/2024 08:34:53 02/05/20 24 02/06/2024 CBC WITH DIFFE RENTI AL/PL ATELE T RBC 4.33 x10e6 /uL 3.77-5 .28 Not Available [facility] ([facility]) [address], [place], [address], 02/06/2024 08:34:53 02/05/20 24 02/06/2024 CBC WITH DIFFE RENTI AL/PL ATELE T hemoglobin 12.8 g/dL 11.1-1 5.9 Not Available [facility] ([facility]) [address] [place], [address], 02/06/2024 08:34:53 02/05/20 24 02/06/2024 CBC WITH DIFFE RENTI AL/PL ATELE T hematocrit 38.1 % 34.0-4 6.6 Not Available [facility] ([facility]) [address] [place], [address], 02/06/2024 08:34:53 02/05/20 24 02/06/2024 CBC WITH DIFFE RENTI AL/PL ATELE T MCV 88 fL 79-97 Not Available [facility] ([facility]) [address] [place], [address], 02/06/2024 08:34:53 02/05/20 24 02/06/2024 CBC WITH DIFFE RENTI AL/PL ATELE T MCH 29.6 pg 26.6-3 3.0 Not Available [facility] ([facility]) [address] [place], [address], 02/06/2024 08:34:53 02/05/20 24 02/06/2024 CBC WITH DIFFE RENTI AL/PL ATELE T MCHC 33.6 g/dL 31.5-3 5.7 Not Available [facility] ([facility]) [address], [place], [address], 02/06/2024 08:34:53 02/05/20 24 02/06/2024 CBC WITH DIFFE RENTI AL/PL ATELE T RDW 12.1 % 11.7-1 5.4 Not Available [facility] ([facility]) [address], [place], [address], 02/06/2024 08:34:53 02/05/20 24 02/06/2024 CBC WITH DIFFE RENTI AL/PL ATELE T platelets 355 x10e3 /uL 150-45 0 Not Available [facility] ([facility]) [address], [place], [address], 02/06/2024 08:34:53 02/05/20 24 02/06/2024 CBC WITH DIFFE RENTI AL/PL ATELE T neutrophils 29 % notest ab. Not Available [facility] ([facility]) [address], [place], [address], 02/06/2024 08:34:53 02/05/20 24 02/06/2024 CBC WITH DIFFE RENTI AL/PL ATELE T lymphs 63 % notest ab. Not Available [facility] ([facility]) [address], [place], [address], 02/06/2024 08:34:53 02/05/20 24 02/06/2024 CBC WITH DIFFE RENTI AL/PL ATELE T monocytes 5 % notest ab. Not Available [facility] ([facility]) [address], [place], [address], 02/06/2024 08:34:53 02/05/20 24 02/06/2024 CBC WITH DIFFE RENTI AL/PL ATELE T eos 2 % notest ab. Not Available [facility] ([facility]) [address], [place], [address], 02/06/2024 08:34:53 02/05/20 24 02/06/2024 CBC WITH DIFFE RENTI AL/PL ATELE T basos 1 % notest ab. Not Available [facility] ([facility]) [address], [place], [address], 02/06/2024 08:34:53 02/05/20 24 02/06/2024 CBC WITH DIFFE RENTI AL/PL ATELE T neutrophils (absolute) 1.4 x10e3 /uL 1.4-7. 0 Not Available [facility] ([facility]) [address], [place], [address], 02/06/2024 08:34:53 02/05/20 24 02/06/2024 CBC WITH DIFFE RENTI AL/PL ATELE T lymphs (absolute) 3.1 x10e3 /uL 0.7-3. 1 Not Available [facility] ([facility]) [address], [place], [address], 02/06/2024 08:34:53 02/05/20 24 02/06/2024 CBC WITH DIFFE RENTI AL/PL ATELE T monocytes(ab solute) 0.2 x10e3 /uL 0.1-0. 9 Not Available [facility] ([facility]) [address], [place], [address], 02/06/2024 08:34:53 02/05/20 24 02/06/2024 CBC WITH DIFFE RENTI AL/PL ATELE T eos (absolute) 0.1 x10e3 /uL 0.0-0. 4 Not Available [facility] ([facility]) [address], [place], [address], 02/06/2024 08:34:53 02/05/20 24 02/06/2024 CBC WITH DIFFE RENTI AL/PL ATELE T baso (absolute) 0.0 x10e3 /uL 0.0-0. 2 Not Available [facility] ([facility]) [address], [place], [address], 02/06/2024 08:34:53 02/05/20 24 02/06/2024 CBC WITH DIFFE RENTI AL/PL ATELE T immature granulocytes 0 % notest ab. Not Available [facility] ([facility]) [address], [place], [address], 02/06/2024 08:34:53 02/05/20 24 02/06/2024 CBC WITH DIFFE RENTI AL/PL ATELE T immature grans (abs) 0.0 x10e3 /uL 0.0-0. 1 Not Available [facility] ([facility]) [address] [place], [address], 02/06/2024 08:34:53 07/06/1908/16/2024 Tissu e Patho logy biops y repor t pathology report.secti on heading Surgic al Pathol ogy Report Case: [id number] Author ojing Graham er: Catrachito Schroeder MD Colle felipe: 2024 11:59 AM Orderi ng Locati on: [facility] - Receiv ed: 2024 01:32 PM Pathol ogy Lab Pathol ogist: Sandi Monsivais MD Specim en: Soft Tissue Mass, Left thumb Case Repor t Surgi bora Patho logy Repor t Case: [id number] Autho rijose g Provi jason: Kathie Schroeder MD Colle cted: 07/06 11:59 AM Order ing Locat ion: [facility] - Recei mikel: 07/13 01:32 PM Patho logy Lab Patho logis t: Sandi Sandoval MD Speci men: Soft Tissu e Mass, Left thumb 08/16 2:57 PM [employer]TE[employer]CE [employer] [facility] Not Available Not Available 08/30/2024 14:01:15 07/06/1908/16/2024 Tissu e Patho logy biops y repor t pathology report final diagnosis narrative Left thumb mass, excisi on (AS, 2024): - 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 It is not even certa in [facility] er the tumor is of bone or of soft tissu e origi n. Tenos yyuniori al giant cell tumor (kyrie gn or malig nant) , giant cell tumor of soft tissu e, ossif nazia fibro myxoi d tumor , myosi tis ossif icans , fibro ma of tendo n sheat h, chond robla stoma , metap lasti c bone in [facility] er entit y, osteo sarco ma all [...] amend ed repor t. 08/16 2:57 PM [employer]TENA[employer] [facility] Not Available Not Available 08/30/2024 14:01:15 07/06/19 25 08/16/2024 Tissu e Patho logy biops y repor t pathology report relevant history narrative The chandu t is a 38 year old woman. ([facility] access ion number [id number], block A1). The patijaci t has had left thumb pain and swelli ng for 5 months , and she had been given antibi otics withou t succes s. She has minima l histor y, with a refere nce to cervic al cancer but with a benign hyster [...] ed. Clini bora Histo ry The shannon nt is a 38 year old woman . (outs toni hospi fred acces steven numbe r [id number], block A1). The patie nt has had left thumb pain and [...] germania n curet felipe. 08/16 2:57 PM [employer]TENANCE [employer] [facility] Not Available Not Available 08/30/2024 14:01:15 07/06/19 25 08/16/2024 Tissu e Patho logy biops y repor t pathology report gross observation narrative The case is a primar y diagno sis of tissue receiv ed and proces sed at [facility], Maddison Jarrell is, their access ion number [id number] (07/08) . Provid ed are a single H and E staine d slide A1, the emily mead g block, and pathol ogy identi ficati on and estrada ng paperw ork. Also receiv ed are pertin ent radiol ogy report s and operat carmita note. The specim en has not been decalc ified. The [facility] gross descri ption: Recei mikel in formal [...] e recei mikel [facility], their acces steven numbe r [id number] (06/23). Provi ded are a singl e H and E stain ed slide A1, the corre spond ing block , and patho logy ident ifica tion and gross ing paper work. Also recei mikel are perti nent radio logy repor ts and opera tive note. The speci men has not been decal cifie d. The [facility] gross descr iptio n: Rece ived in [...] in casse tte A1. 08/16 2:57 PM MAINTENANCE GROUNDS[employer] [facility] Not Available Not Available 08/30/2024 14:01:15 07/06/19 25 08/16/2024 Tissu e Patho logy biops y repor t materials received Receiv ed are 1 slide( s) labele d [id number] along with a copy of the outsid e pathol ogy report . The [facility]i als origin [facility] from [facility] [address] [place] [address]. All origin al materi als are return ed to the referr ing instit ution, along with a copy of our final report . Mater ials Recei mikel Recei mikel are 1 slide (s) label ed [id number] along with a copy of the outsi de patho logy repor t. The mater ials origi james from [facility] [address] [place] [address] . All origi nal mater ials are retur lo to the refer ring insti tutio n, along with a copy of our final repor t. 08/16 2:57 PM [employer]INTENANCE GROUN[employer] [facility] Not Available Not Available 08/30/2024 14:01:15 07/06/19 25 08/16/2024 Tissu e Patho logy biops y repor t pathology report addendum in specimen narrative The case was sent for consul tation to the Bone and Soft Tissue Pathol ogy sectio n at the [facility] (consu ltatio n perfor med by Dr. Ricky waite, 025). 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 Ricky kearney , 2024) . 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 Altho ugh consi dered benig n, local recur rence s may occur . Close clini bora follo w-up is recom chris dBrandin I concu r with Dr. Pernell kearney 's diagn osis. 08/16 2:57 PM [employer]INTENANCE GROUNDS[employer] [facility] Adden dum elect suha olsene d by Sandi Sandoval MD on 2024 at 2:57 PM Not Available Not Available 08/30/2024 14:01:15 07/06/19 25 08/16/2024 Tissu e Patho logy biops y repor t pathologist location at [facility] Patho logis t Locat ion at [facility] 08/16 2:57 PM [employer]INTENANCE GROUN[employer] [facility] Not Available Not Available 08/30/2024 14:01:15 07/06/1908/16/2024 Tissu e Patho logy biops y repor t service comment The yadira jacques ics of all immuno histoc hemica l and indire ct immuno fluore scence stains (if any) cited in this report were determ ined by the Histop santos tijerina of [facility]. Some of these tests were develo [...] tijerina is certif ied under the Clinic al Jaimee tijer[place] Improv ement Amendm ents (CLIA) as qualif ied to perfor [facility] xity clinic al jaimee majano g. This case has been person ally review ed and interp reted by the attend ing (teach ing) pathol ogist. Discl aimer The perfo rmanc e abdias cteri stics of all immun ohist ochem ical and indir ect immun ofluo resce nce stain s (if any) cited in this repor t were deter mined by the Histo patho logy [facility] . Some of these tests were [...] wed and inter prete d by the [facility]. 08/16 2:57 PM MAINTENANCE GROUNDSK[employer] [facility] Not Available Not Available 08/30/2024 14:01:15 07/06/1908/16/2024 Tissu e Patho logy biops y repor t embedded images Embed ded Image s 08/16 2:57 PM [employer]INTENANCE GROUNDSK[employer] [facility] Not Available Not Available 08/30/2024 14:01:15 01/02/20 24 12/31/2023 CT, abdom en + pelvi s, w/o contr ast No observ ation record ed. [address], [place], [address], 01/04/2024 15:31:41 07/30/19 25 07/30/2024 XR, finge r(s) No observ ation record ed. [address], [place], [address], 08/10/2024 17:27:29 08/31/19 25 08/30/2024 XR, finge r(s), 2 or more view No observ ation record ed. [facility] [address], [place], [address], 08/31/2024 11:05:05 09/02/19 25 09/01/2024 MAMMO , scree jessica, bilat eral No observ ation record ed. [facility] [address], [place], [address], 09/02/2024 22:32:25 09/21/19 25 09/20/2024 XR, chest , 2 view No observ ation record ed. [facility] Scheduling [address], [place], [address], 09/21/2024 10:50:01 09/23/19 25 09/22/2024 CT, chest , w/o contr ast No observ ation record ed. [facility]) [address], [place], [address], 09/23/2024 09:31:06 09/23/19 25 09/22/2024 CT, chest , w/o contr ast No observ ation record ed. [facility] Scheduling [address], [place], [address], 09/29/2024 14:31:38 10/19/19 25 10/18/2024 XR, chest , 2 view No observ ation record ed. [facility] Scheduling [address], [place], [address], 10/19/2024 11:51:52 12/07/19 25 12/03/2024 PET-C T, skull base to mid-t high scan No observ ation record ed. [facility] Patient Access Centralized Scheduling Centralized Scheduling [address], [place], [address], 12/29/2024 15:45:15 01/06/20 25 PFT, compl ete No observ ation record ed. [email or web address] Not Available 12/21 11:40:42 Result Notes None recorded. Problems Name Problem SNOMED Code Status Onset Date Resolution Date Notes Provider Name and Address Organization Details Recorded Time Anger reaction 876757154 Active KATARZYNA KEVIN Attn: Teena spears,[address], [place], [address], [place] - [facility] 3 15:51:55 Depressive disorder 12464183 Active [address] Attn: Accountin g,[address] [facility], [place], [address], [place] [facility] 3 15:51:56 Hyperchole sterolemia 66900805 Active 2015 KATARZYNA KEVIN Attn: Marysoljusto spears,[address] [facility], [place], [address], [place] [facility] 3 15:51:55 History of total hysterecto my 967366969 Active 202202/07/2023 KATARZYNA KEVIN Attn: Marysoljusto spears,[address] [facility], [place], [address] 2, [place] - [facility] 3 15:51:56 Hyperlipid emia 76324433 Active 2022 KATARZYNA KEVIN Attn: Marysoljusto spears,[address] [facility], [place], [address], [place] [facility] 3 15:51:56 Gastroesop hageal reflux disease without esophagiti s 550362624 Active 2022 KATARZYNA KEVIN Attn: Marysoljusto g,[address] [facility], [place], [address], [place] [facility] 3 10:38:25 Screening for malignant neoplasm of colon Active 2023 records in chart completed 01/19/24, repeat in 5 yrs KATARZYNA KEVIN Attn: Accountjusto g,[address] [facility], [place], [address], [facility] 4 10:03:57 Problem Notes None recorded. Procedures Surgical History Date Name Laterality Status Provider Name and Address Organization Details Recorded Time 02/08/20 23 total hysterectomy completed KATARZYNA KEVIN Attn: Accounting,[address], [place], [address], [facility] 05/20/2023 10:41:24 Imaging Results None recorded. Procedure Notes None recorded. Medical Equipment None Reported. Allergies No known drug allergies Medications Name Sig Start Date Stop Date Status Note LastModified by Organization Details LastModified Time atorvastati n 40 mg tablet TAKE 1 TABLET BY MOUTH EVERY DAY AT BEDTIME FOR HIGH CHOLESTER OL active Not Available Not Available No t Available clindamycin HCl 300 mg capsule TAKE 1 CAPSULE BY MOUTH EVERY 8 HOURS FOR 7 DAYS 09/01 completed Not Available Not Available Not Available trazodone 50 mg tablet 02/11 completed Not Available Not Available Not Available azithromyci n 250 mg tablet TK 2 TS PO ON DAY 1, THEN TK 1 T PO D FOR 4 DAYS 11/10 completed Not Available Not Available Not Available benzonatate 200 mg capsule TAKE 1 CAPSULE BY MOUTH THREE TIMES DAILY NEEDED FOR COUGH active Not Available Not Available No t Available hydrocodone 5 mg-acetamin ophen 325 mg [...] 1 CAPSULE BY MOUTH EVERY 8 HOURS 11/10 completed Not Available Not Available Not Available pantoprazol e 40 mg tablet,teofilo yed release active Not Available Not Available Not Available mirtazapine 30 mg tablet 02/11 completed Not Available Not Available Not Available prednisone 50 mg tablet TAKE 1 TABLET BY MOUTH DAILY active Not Available Not Available No t Available fluoxetine 10 mg capsule 02/11 completed [...] completed Not Available Not Available Not Available methylpredn isolone 4 mg tablets in a dose pack FOLLOW PACKAGE DIRECTION S 11/10 completed Not Available Not Available Not Available albuterol sulfate HFA 90 mcg/actuati on aerosol inhaler INHALE 2 PUFFS BY MOUTH FOUR TIMES DAILY NEEDED FOR BRONCHOSP ASM active Not Available Not Available No t Available hydroxyzine HCl 10 mg tablet 02/11 [...] Body weight Heart rate Body temperature Systolic And Diastolic Provider Name and Address Organization Details Last Updated DateTime 5 160.02 cm 30.6 kg/m2 86522.4 8 g 78 /min 97.2 [degF] 131/82 mm[Hg] Jagruti Lazar [facility] 5 14:13:28 Date Recorded Body height Oxygen saturation Oxygen saturation in Arterial blood by Pulse oximetry Heart rate Respiratory rate Body temperature Body mass index (BMI) Body weight Systolic And Diastolic Provider Name and Address Organization Details Last Updated DateTime 5 160.02 cm 98 % 98 % 68 /min 18 /min 98.2 [degF] 30.8 kg/m2 17845.0 7 g 134/76 mm[Hg] Tyra Davis LPN [facility] 5 10:57:48 Date Recorded Body height Body mass index (BMI) Body weight Body temperature Respiratory rate Oxygen saturation Oxygen saturation in Arterial blood by Pulse oximetry Heart rate Systolic And Diastolic Provider Name and Address Organization Details Last Updated DateTime 5 160.02 cm 31.2 kg/m2 84123.2 6 g 96.8 [degF] 18 /min 98 % 98 % 66 /min 138/88 mm[Hg] Tyra Davis LPN [facility] 5 11:23:46 Date Recorded Body height Body mass index (BMI) Body weight Heart rate Body temperature Systolic And Diastolic Provider Name and Address Organization Details Last Updated DateTime 4 160.02 cm 30.1 kg/m2 28073.7 g 87 /min 98.1 [degF] 127/78 mm[Hg] Jagruti Lazar [facility] 4 15:42:18 Date Recorded Body height Body mass index (BMI) Body weight Oxygen saturation Oxygen saturation in Arterial blood by Pulse oximetry Heart rate Respiratory rate Systolic And Diastolic Provider Name and Address Organization Details Last Updated DateTime 4 160.02 cm 30.5 kg/m2 78511.5 9 g 98 % 98 % 83 /min 17 /min 113/78 mm[Hg] Teena Lira MA [facility] 4 09:55:01 Social History Question Answer Notes LastModified by Organizat ion Details LastModified Time Tobacco Smoking Status Never Smoker River García MA null, [facility] 11/11/2016 11:04:56 Do You Have An Advance Directive? No Information n ot available 05/12/2023 What Is Your Level Of Caffeine Consumption? [...] Or The Highest Degree You Have Received? [id number] Information not available 05/12/2023 Do You Have A Medical Power Of Range Operator? No Information not available 05/12/2023 What Was The Date Of Your Most Recent Tobacco Screening? 11/10/2024 [email or web address] Information not available 11/10/2024 Do You Have Smoke And Carbon Monoxide Detectors In Your Home? Yes Information not available 05/12/2023 Are You Passively Exposed To Smoke? No Information no t available 05/12/2023 Has Tobacco Cessation Counseling Been Provided? No Information not available 02/11/2023 Sex: Female Functional Status Question Answer Note LastModified by Organizat ion Details LastModified Time Do you use any illicit or recreational drugs? No Information not available 02/11/2023 Do you or have you ever used any other forms of tobacco or nicotine? No Information not available 02/11/2023 What is your level of alcohol consumption? Occasional Information not available 02/11/2023 Mental Status None recorded. Family History Relationship [...] mL dose 05/20/2022 completed Юлия Cardoza MA [facility] 05/20/2022 14:52:23 Past Encounters Encounter ID Performer Location Encounter Start Date Encounter Closed Date Diagnosis/Indication Diagnosis SNOMED-CT Code Diagnosis ICD10 Code Diagnosis Note [id number] Jarocho Hillman MD [facility] (Adult/Fa m Med) [address] [place] [address] 03/20/2016 12:40:10 03/22/2016 12:20:32 Depressive disorder 98021201 F32.0 Anger reaction 582806803 R45.4 Screening for disorder 959611065 Z13.9 [id number] Jarocho Hillman MD [facility] (Adult/Fa m Med) [address] [place] [address] 05/08/2016 15:35:46 05/13/2016 13:21:41 Anger reaction 113728430 R45.4 Depressive disorder 3548 9007 F32.0 Hyperlipidemia 76396118 E78.5 [id number] Keegan Voss MD [facility] (DIRECTOR HUMAN SERVICES) [address] [place], [place] [id number] 11/11/2016 10:16:33 12/05/2016 11:04:10 Gynecologic examination 31932386 Z01.[address] Dexter 2015 No results available advised to have results sent to computer to con't BILINGUAL RECEPTIONIST services r\t D. 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 Pain of breast 78387620 N64.4 duration progressin g from 1-2 years; exam today tenderness noted advised to RTO 30 days decrease intake of fatty meats more vegy & fruits. Screening for malignant neoplasm of breast 699500856 Z12.31 [id number] Fabienne Marques [facility] (Adult/Fa m Med) [address] [place] [address] 11/19/2016 15:13:32 11/20/2016 16:37:59 High risk sexual behavior 660509445 Z72.51 [id number] Fabienne Marques [facility] (Adult/Fa m Med) [address] [place] [address] 11/21/2016 16:33:27 11/22/2016 09:50:06 Trichomonal vaginitis 287854024 A59.00 [id number] Fabienne Marques [facility] (Adult/Fa m Med) [address] [place] [address] 9 12/11/2016 12:21:24 12/17/2016 16:40:00 Screening for disorder 097381821 Z13.9 Hyperlipidemia 48885810 E78.5 [id number] Keegan Voss MD [facility] (DIRECTOR HUMAN SERVICES) [address] [place] [address] 12/12/2016 10:38:23 01/16/2017 10:43:53 Pain of breast 48200982 N64.4 duration progressin g from 1-2 years; exam today tenderness noted advised to RTO 30 days decrease intake of fatty meats more vegy & fruits. History of dysplasia of cervix 556875834 Z87.410 with endometrio sis\ & total hysterecto my [id number] KATARZYNA LEYVA (Peds) [address] [place] [address] 05/20/2022 13:47:24 05/22/2022 14:49:45 Administration of SARS-CoV-2 mRNA vaccine 9211341483 Z23 [id number] Mannie ybarra MD Pending [facility] to [facility] [address] [place] [address] 02/11/2023 10:12:29 02/11/2023 12:24:57 Depression screening 342081591 Z13.31 PHQ 0 Overweight 708563794 E66 .3 discussed increasing exercise and healthier food options, high protein, low fat dietroutin e labs History of total hysterectomy 626860722 Z90.710 02/07/[address] García at [facility] due to vaginal bleedingth ought she had total hysterecto my in 2009 [facility], scars healing wellhas f/u in 2 wkswill request recordsf/u in 1 mo Nodule of lung 699431873 R91.1 told inpatient6 mm in left lower lobewill request records Lesion of spleen 3795888 001 28912 D73.89 told inpatient4 mm on spleen, told it was cyst or hemangioma will request records [id number] KATARZYNA KEVIN [facility] to [facility] [address] [place] [address] 03/14/2023 09:46:06 03/17/2023 16:05:15 History of total hysterectomy 324604642 Z90.710 03/14/23:6 wk post op f/u FABIANA next week 02/11/23: by Dr. García at [facility] due to vaginal bleedingth ought she had total hysterecto my in 2009 from [facility] surgery, scars healing wellhas f/u in 2 wkswill request recordsf/u in 1 mo Nodule of lung 582211788 R91.1 per ED records:CT abd/pelvis limited evaluation of lower thorax- 4 mm nodule in left lower lobediscus sed with pt, she is not a smoker, no sxpt would like to be referred to pulm Gastroesop hageal reflux disease without esophagitis 524646818 K21.9 x1 moacid running up and down her throatwors e at nighteatin g dinner at 8 PM and sleeping by 9 PMrec'd to eat dinner earliertri al PPI Cervical lymphadenopathy 839216892 R59.0 x3 monthsL sided supramandi bularstate s that nodule pops out and pt has to push it back inunable to talk or swallow when this occursorde red US neck Splenic cyst 99830374 D7 3.[address] abd/pelvis during ED visit6 mm low density lesion of spleen, likely cyst or hemangioma reassured pt, no concerning findings Depression screening 171 555960 Z13.31 PHQ 0 [id number] Carmen Garcia DO [facility] [address] [place] [address] 05/12/2023 09:16:56 05/13/2023 11:52:25 Acid reflux 495888061 K21.9 x 4 monthspant oprazole 20 mg QD, helping but still having symptoms. Recommend increasing dose to 40 mg QD.If no improvemen t with max daily dose of PPI, may consider EGD eval Epigastric pain 44055323 R10.13 Hiatal hernia 98107995 K 44.9 likely not the cause of her symptoms given size. Would not recommend surgical consult at this time. [id number] Mannie ybarra MD [facility] to [facility] [address] [place] [address] 05/20/2023 09:53:19 05/20/2023 10:20:39 History of total hysterectomy 004195618 Z90.710 05/10/23:h as f/u in 1 mo, rec'd consult note from DIRECTOR HUMAN SERVICES 03/14/23:6 wk post op f/u FABIANA next week 02/11/23: by Dr. García at [facility] due to vaginal bleedingth ought she had total hysterecto my in 2009 from different [facility] roscopic surgery, scars healing wellhas f/u in 2 wkswill request recordsf/u in 1 mo Nodule of lung 874268675 R91.1 05/20/23:h as appt on 07/02/[address] Jara 03/14/23:pe r ED records:CT abd/pelvis limited evaluation of lower thorax- 4 mm nodule in left lower lobediscus sed with pt, she is not a smoker, no sxpt would like to be referred to pulm Gastroesop hageal reflux disease without esophagitis 537156876 K21.9 05/20/23:f ollowing with GI- increased pantoprazo le to 40 mg and h pylori negative 03/14/23:x1 moacid running up and down her throatwors e at nighteatin g dinner at 8 PM and sleeping by 9 PMrec'd to eat dinner earliertri al PPI Depression screening 171 806641 Z13.31 PHQ 0 Screening for malignant neoplasm of breast 449120036 Z12.39 has script for mammogram from [facility] Feeling of lump in throat 835396042 R09.89 05/20/23:U S neck normalstil l c/o sensation on something stuck in her throatwill refer to ENT 03/14/23:x3 monthsL sided supramandi bular LADstates that nodule pops out and pt has to push it back inunable to talk or swallow when this occursorde red US neck Hyperlipidemia 69313693 E78.5 05/20/23:r e-check today 02/12/23:LD L 201total 265start atorre-pato ck lipid in 3 mo Prediabetes 700984179 R7 3.03 05/20/23:r e-check today 01/2023: a1c 5.9 [id number] Fabien Mock MD [facility] [address] [place] [address] 06/30/2023 16:16:10 07/02/2023 14:47:41 Chronic sialadenitis 103861305 K11.23 follow-up after CT scan [id number] [facility] [address] [place] [address] 07/02/2023 15:10:32 2023 14:10:27 Nodule of lung 972528108 R91.[address] Gastroesop hageal reflux disease 096329107 K21.9 Pantoprazo le Solitary n odule of lung 239475765 R91.1 [id number] Maciel Jara MD [facility] [address] [place] [address] 09/17/2023 14:52:54 09/18/2023 08:52:12 Nodule of lung 066891702 R91.[address] Gastroesop hageal reflux disease 663948674 K21.9 Pantoprazo le Solitary n odule of lung 442029947 R91.1 [id number] CRISSY COLÓN [facility] [address] [place] [address] 01/05/2024 15:18:16 01/06/2024 07:41:20 Hematochezia 444209556 K92.1 SNEHA performed at ER didn't show anything per patient. Recommend colonoscop y eval and will check stool samples for further eval [id number] Mannie ybarra MD [facility] [address] [place] [address] 02/05/2024 09:47:34 02/05/2024 10:12:25 Gastroesophageal reflux disease without esophagitis 856748958 K21.9 02/04/24: doing well with pantoprazo le 40 05/20/23:f ollowing with GI- increased pantoprazo le to 40 mg and h pylori negative 03/14/23:x1 moacid running up and down her throatwors e at nighteatin g dinner at 8 PM and sleeping by 9 PMrec'd to eat dinner earliertri al PPI Obesity 431528337 E66.8 BMI 30.5routin e labs Hyperlipidemia 16901029 E78.5 02/05/24: refill and due for lipid panel 05/20/23:r e-check today 02/12/23:LD L 201total 265start atorre-pato ck lipid in 3 mo Nodule of lung 288107903 R91.1 02/05/24: following with pulm, monitoring nodules more on R than left with yearly scans 05/20/23:h as appt on 07/02/[address] Jara 03/14/23:pe r ED records:CT abd/pelvis limited evaluation of lower thorax- 4 mm nodule in left lower lobediscus sed with pt, she is not a smoker, no sxpt would like to be referred to pulm Feeling of lump in throat 310854674 R09.89 02/05/24: following with GI, EGD 09/2023- suspected gastropare sis 05/20/23:U S neck normalstil l c/o sensation on something stuck in her throatwill refer to ENT 03/14/23:x3 monthsL sided supramandi bular LADstates that nodule pops out and pt has to push it back inunable to talk or swallow when this occursorde red US neck Depression screening 171 323961 Z13.31 PHQ 0 Screening for malignant neoplasm of breast 732268503 Z12.39 completed 08/2023, nl Screening for malignant neoplasm of colon 052938660 Z12.11 01/19/24, records in chart, repeat 2028 [id number] Med Neves DO [facility] [address] [place] [address] 08/23/2024 13:50:27 08/23/2024 14:29:44 Chronic gastritis 9139056 K29.50 EGD 10/21/2023: active chronic gastritis. Revisit pantoprazo le. Patient to work on decreasing to once/day dosing. F/u 6 months Diverticul osis of colon 481205480 K57.30 continue fiber Internal hemorrhoids 904 08159 K64.8 continue fiber [id number] Maciel Jara MD [facility] [address] [place] [address] 09/01/2024 10:42:54 09/01/2024 11:46:09 Nodule of lung 304574704 R91.[address] Gastroesop hageal reflux disease 907935796 K21.9 Pantoprazo le Solitary n odule of lung 685600946 R91.1 [id number] Maciel Jara MD [facility] [address] [place] [address] 11/10/2024 11:03:14 11/10/2024 12:30:05 Nodule of lung 603471257 R91.1 pet scan Chronic cough 95756476 R 05.3 AlbuterolP [facility] Concerns Section Related Observation LastModified by Organization Detai ls LastModified Time None Recorded Concern Status LastModified by Organization Details LastModified Time None Recorded Advance Directives Directive N: Payers Insurance Date Sequence Insurance Name Policy Number Policy Cordova Covered Member ID Cordova Member ID Guarantor Name 03/14/2023 1 [facility] (MEDICAID HMO) Roderick Castillois [id number] Roderick Jackson Finn 09/21/2024 1 [facility] - DOS ON OR AFTER 20 (MEDICAID REPLACEMENT - HMO) Roderick Finn [id number] Roderick Jackson Finn Notes Date Note Type Note Provider Name and Address Organization Details Recorded Time 01/05/2024 text/html Patient presents today for ER follow up. Went to [facility] 12/[facility]23 for painless rectal bleeding. Patient states [...] Praful anorectal itching or burning. CRISSY COLÓN [address] [place], [address], [facility] 01/05/2024 16:05:11 02/05/2024 text/html Pt [...] weakness, or headaches. KATARZYNA KEVIN Attn: Accounting,[address] [facility], [place], [address], [facility] 02/05/2024 12:34:00 08/23/2024 text/html Patient presents today for follow up. Has been without pantoprazole due to insurance issues and noticed increase in acid, spitting up, and coughing. Worse at night. Bowel symptoms improved after colonoscopy. Tries to eat more fiber. CRISSY COLÓN [address], [place], [address], [facility] 08/23/2024 14:22:51 09/01/2024 text/html follow for Lung nodule It was an incidental findings on CT of abdomen. Has granulomas of spleen life time non smoker no cough no known mold exposure review chest CT from 07/2023 Maciel Jara MD [address], [place], [address], [facility] 09/01/2024 11:35:27 11/10/2024 text/html follow for Lung nodule It was an incidental findings on CT of abdomen. Has granulomas of spleen life time non smoker + cough no known mold exposure review chest CT from 07/2023 and 09/2024Tesselon perel and prednisone did not help.MDI did not help Maciel Jara MD [address] [place], [address], [facility] 11/10/2024 11:56:41 OBGyn Episode No OBEpisode recorded.
--- OUTSIDE RECORDS SUMMARY | 2025-01-06 10:54 | XMS_ITS | Encounter Summary ---
Author Organization [facility] Address [address] [place] [place] [address] Care Team Providers Care Densitometer Reader Name Role Phone Unavailable Primary Care Provider Unavailabl e Encounter Details Date Type Department Care Team (Late st Contact Info) Description 07/13/2024 Lab Requisition [facility] - Pathology Lab [address] [place] [id number] Catrachito Schroeder MD [address] [facility] [address] [place] [address] Illness, unspecified Social History Tobacco Use Types Packs/Day Years Used Date Smoking Tobacco: Never Assessed Comments Unknown Sex and Gender Information Value Date Recorded Sex Assigned at Not on file Legal Sex Female 5:32 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 Gender Identity Not on file Sexual Orientation Not on file documented as of this encounter Plan of Treatment Not on file documented as of this encounter Procedures Procedure Name Priority Date/Time Associated Diagnosis Comments PATHOLOGY TISSUE Routine 07/06/2024 11:5 9 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 Illness, unspecified documented in this encounter Results * PATHOLOGY TISSUE (07/06/2024 11:59 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) Case Report Surgical Pathology Report Case: [id number] Authorizing Provider: Catrachito Schroeder MD Collected: 07/06/2024 11:59 AM Ordering Location: [facility] - Received: 07/13/2024 01:32 PM Pathology Lab Pathologist: Sandi Mckay MD Specimen: Soft Tissue Mass, Left thumb 08/16/2024 2:57 PM REGULATORY AFFAIRS MANAGER [facility] Final Diagnosis Left thumb mass, 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 Microscopic Description and Comment Microscopic examination substantiates [...] in an amended report. 08/16/2024 2:57 PM [facility] Clinical History The patient is a 38 year old woman. ([facility] accession number [id number], block A1). The patient has had left [...] bone resection margin curetted. 08/16/2024 2:57 PM [facility] Gross Description The case is a primary diagnosis of tissue received and processed at [place], [place], their accession number [id number] (2024). Provided are a single H and E stained slide A1, the corresponding block, and pathology identification and grossing paperwork. Also received are pertinent radiology reports and operative note. The specimen has not been decalcified. [facility] gross description: Received in formalin labeled with the patient's identification and left thumb mass is a 2 x 2 x 0.4 cm aggregate of elizabeth-white skin and malleable nodular homogenous pale pink tissue. The larger pieces are bisected. The specimen is entirely submitted in cassette A1. 08/16/2024 2:57 PM [facility] Materials Received Received are 1 slide(s) labeled [id number] along with a copy of the outside pathology report. [place] [address]. All original materials are returned to the referring institution, along with a copy of our final report. 08/16/2024 2:57 PM [facility] Addendum 1 The case was sent fo r consultation to the Bone and Soft Tissue Pathology section at the [facility] (consultation performed by Dr. Ricky Cash, 08/09/2024). Their diagnosis is: Soft tissue, left thumb, excision: - Calcified chondroid mesenchymal neoplasm (see comment) The [facility] consultation is scanned into this report, [...] with Dr. Cash's diagnosis. 08/16/2024 2:57 PM [facility] Addendum electronically signed by Sandi Mckay MD on 08/16/2024 at 1457 REGULATORY AFFAIRS MANAGER Pathologist Location at [facility] 08/16/2024 2:57 PM [facility] Disclaimer The performance characteristics of all immunohistochemical and indirect immunofluorescence stains (if any) cited in this report were determined by the Histopathology Laboratory of [facility]. Some of these tests were developed [...] the attending (teaching) pathologist. 08/16/2024 2:57 PM [facility] Embedded Images 08/16/2024 2:57 PM [facility] Pathology/Cytolo gy SOFT TISSUE MASS / Unknown 07/06/2024 11:59 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 07/13/2024 1:32 PM REGULATORY AFFAIRS MANAGER us Catrachito Schroeder MD LAB - PATHOLOGY/CYTOLOGY ORDERAB LES Edited Result - Final [facility] [address] [facility] [place] [address], [facility] [phone] documented in this encounter Visit Diagnoses Diagnosis Illness, unspecified documented in this encounter
--- OUTSIDE RECORDS SUMMARY | 2025-01-06 10:54 | XMS_ITS | Clinical Summary ---
Author Organization [facility] Address [address] [place] [address] Care Team Providers Care Medical Language Specialist Name Role Phone Unavailable Primary Care Provider Unavailabl e Source Comments [facility],non-owned Affiliates and Associated Physician Practices is amultiple site organization consisting of ambulatory clinics and hospital sitesin [place], [place], [place] and [place]. This disclosure is being madepursuant to the Care Everywhere program and may not contain all information available regarding this patient. 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
--- OUTSIDE RECORDS SUMMARY | 2025-01-06 10:54 | XMS_ITS | Data Portability ---
Author Organization [facility] Address [address] [place] [address] Assessment No assessment recorded. Plan of Treatment [...] Recorded Time Endometrial Ablation completed Ramila Giovani [facility] 01/23/2023 14:46:39 ligation of bilateral fallopian tubes completed [employer] 01/23/2023 14:57:45 Imaging Results None recorded. Procedure [...] index (BMI) Body weight Body temperature Systolic And Diastolic Provider Name and Address Organization Details Last Updated DateTime 01/23/2023 160.02 cm 31.5 kg/m2 68836 g 97.2 [degF] 122/80 mm[Hg] Ramila Matute [facility] 14:57:05 Social History Question Answer Notes LastModified by [employer] [place] Details LastModified Time Tobacco Smoking Status Never Smoker Ramila Matute abilio, [facility] 01/23/2023 14:46:39 What Is Your Relationship Status? Single Information not available 01/23/2023 Are You Sexually Active? Yes Information not available 01/23/2023 Sex: Unknown Functional Status Question Answer Note LastModified by [employer] Details LastModified Time What is your level of alcohol consumption? Occasional Information not available 01/23/2023 Do you or have you ever used e-cigarettes or vape? Never used electronic cigarettes Information not available 01/23/2023 What is your exercise level? Moderate Information [...] SNOMED-CT Code Diagnosis ICD10 Code Diagnosis Note [id number] Hermes Abarca DO [facility] [address] [place] [address] 01/23/2023 14:34:51 01/23/2023 15:58:50 Pain in pelvis [id number] R10.2 h/o surgery - possible ablation at [place]- will get records - pa for ultrasound Health Concerns Section Related Observation LastModified by Organization Carlton albrecht LastModified Time None Recorded Concern Status LastModified by Organization Details LastModified Time None Recorded Advance Directives Directive None Recorded Payers Insurance Date Sequence Insurance Name Policy Number Policy [place] Covered Member ID Cordova Member ID Guarantor Name 01/28/2023 1 [employer] [facility] - DOS ON OR AFTER 20 (MEDICAID REPLACEMENT - HMO) Roderick Briseno [id number] Roderick Briseno Notes Date Note Type Note [...] ct results. Hermes Abarca, DO [facility] [facility], [place], [address], [facility] 01/23/2023 15:42:26 OBGyn Episode No OBEpisode recorded.
== END 2025-01-06 10:39 | disposition home or self-care (01) ==
PROVIDERS: PCP Physician Assistant; Visit Provider Physician Assistant Surgical
DX: R22.32 Localized swelling, mass and lump, left upper limb (principal)
CPT/HCPCS: 73140

== ENCOUNTER 2025-06-19 14:23 | Emergency (ER) | payer OTHER, SELFPAY ==
[2025-06-19 14:34] VITALS: BP 129/88; PULSE 122; RESP 20; TEMP 37.4; O2SAT 100
--- NOTE | 2025-06-19 14:40 | ED.URI ---
HPI - URI/Sore Throat General Chief Complaint: Upper Respiratory Infection Stated Complaint: not feeling well Time Seen by Provider: 06/19/25 14:25 Source: patient Mode of arrival: ambulatory Limitations: no limitations History of Present Illness HPI Narrative: Patient is a 39-year-old female who presents with mood changes, body aches, nausea and light sensitivity for 3 days with sore throat starting yesterday. Patient states she started taking new supplements from a sagger filler the recommended by her GI physician to help with her digestive issues. Patient started taking probiotic, potassium iodine, Mag07, black seed oil, sea goodwin gel, and hydrogen peroxide 35 food grade. Patient was given paper that stated the 1st week do 3 drops twice a day of the hydrogen peroxide and water but states sagger filler told her to do 3 drops in each of her 8 bottles of water a day. Patient states the black seed oil salgado her throat each time she has taken it. Denies any fever, chills, vomiting, diarrhea, congestion, cough Related Data Home Medications ?Medication ?Instructions ?Recorded ?Confirmed ?Last Taken ?Type atorvastatin 40 mg tablet 40 mg PO QPM 07/07/24 07/08/24 Unknown History albuterol sulfate 90 mcg/actuation inhalation 06/19/25 Unknown History aerosol inhaler omeprazole 40 mg capsule,delayed mg 06/19/25 Unknown History release Allergies Allergy/AdvReac Type Severity Reaction Status Date / Time No Known Allergies Allergy Verified 06/19/25 15:25 Review of Systems Review of Systems: All systems reviewed & are unremarkable except as noted in HPI and below Constitutional: Constitutional: Denies body ache(s), Denies fever(s), Denies headache(s), Denies malaise and Denies weakness Eyes: Eyes: Denies loss of vision ENT: Denies otalgia, Denies headache(s), Denies nasal congestion, Denies sinus pain and Reports sore throat Cardiovascular: Cardiovascular: Denies chest pain, Denies irregular heart rhythm and Denies dyspnea Respiratory: Respiratory: Denies cough and Denies dyspnea Gastrointestinal: Gastrointestinal: Denies abdominal pain, Denies melena, Denies hematochezia, Denies diarrhea, Reports nausea and Denies vomiting Musculoskeletal: Musculoskeletal: Denies back pain, Reports myalgias and Denies arthralgias Integumentary/Breasts: Skin/Breast: Denies pruritus and Denies rash Neurologic: Denies headache(s), Denies loss of vision and Denies weakness Psychiatric: Psychiatric: Reports no additional psychiatric complaints and Reports mood swings PMFSH Past Medical History Medical History History of cervical cancer Surgical History Surgical History H/O: hysterectomy Social History Social History Smoking status: Never smoker Second hand tobacco smoke exposure: No Alcohol intake: never Substance use: never Substance use type: does not use Living arrangements: with family Spiritual care concerns: No Comments At time of signature, agree with nursing past medical, surgical, social and family history. There is no relevant family history pertinent to the presenting complaint. Exam Const: General: cooperative, healthy appearing, comfortable, no acute distress and well nourished Nutritional Appearance: well nourished Orientation/consciousness: patient oriented x3 Limitations: no limitations HENMT: Head: normal to inspection, normocephalic and atraumatic Ears: hearing grossly normal bilaterally, external ears normal, TM's normal bilaterally and EAC's normal Face/Nose/Sinus: Normal external nose present, Normal nares present, Normal nasal mucous membranes and turbinates present, Normal septum present, normal facial exam, sinuses nontender and face symmetric Face and sinus: normal facial exam, sinuses nontender and face symmetric Mouth: Yes Normal oral and palatal mucosa present, Yes lip normal and Yes moist mucous membranes Teeth and gingiva: dentition normal Throat: uvula midline, abnormal tonsil bilateral erythema, exudates and hypertrophy 3+ and posterior oropharynx abnormal erythema Eyes: General: appearance normal, both eyes and all related structures Alignment and Position: alignment normal and position normal Periorbital: periorbital findings normal Eyelids: eyelids normal Pupils: Equal, round and reactive pupils present Neck: Neck: normal visual inspection, full ROM, no lymphadenopathy and supple Chest: Chest palpation & inspection: normal inspection of the chest and normal palpation of entire chest wall Resp: Effort & Inspection: normal respiratory effort and able to speak in complete sentences Auscultation: clear to auscultation bilaterally, no crackles, no rales, no rhonchi and no wheezes Cardio: Rate: tachycardic Rhythm: regular rhythm Heart sounds: S1 normal heart sound present and S2 normal heart sound present GI: Inspection: normal to inspection Skin: General skin exam: normal color and no rashes or lesions noted Neuro: General: patient oriented x3 and moves all extremities Cranial nerves: Yes Equal, round and reactive pupils present Speech: normal speech Gait exam (Neuro): Normal gait present Extrem: General: normal to inspection, full ROM and no edema Psych: Appearance: grossly normal and well kempt Mental Status: mental status grossly normal Speech and movement: Normal speech and movement present Affect: normal affect Attitude: cooperative Thought process: Normal thought process present Course Course Emergency Course: Patient is aware of diagnosis, understands and agrees to treatment plan. Anticipatory guidance given. Patient agrees to follow-up as directed and is aware of reasons to seek care at the emergency department. Portions of this record may have been created with voice recognition software Level of Care: Express Care Visit Vital Signs Vital signs: Vital Signs Temperature 37.4 C 06/19/25 14:34 Pulse Rate 122 H 06/19/25 14:34 Respiratory Rate 20 06/19/25 14:34 Blood Pressure 129/88 06/19/25 14:34 Pulse Oximetry 100 06/19/25 14:34 Oxygen Delivery Room Air 06/19/25 14:34 Temperature 37.4 C 06/19/25 14:34 Pulse Rate 122 H 06/19/25 14:34 Respiratory Rate 20 06/19/25 14:34 Blood Pressure 129/88 06/19/25 14:34 Pulse Oximetry 100 06/19/25 14:34 Oxygen Delivery Room Air 06/19/25 14:34 [facility] MDM Narrative Medical decision making narrative: Patient positive for strep throat. Will treat with antibiotics. Education provided to limit reexposure. Patient is very anxious. during exam both nurse and myself touch bottle Hydrea peroxide causing burning, itching and discoloration of skin. Poison Control was called and states these are caustic chemical salgado and also the patient should not be ingesting this liquid. Liquid was thrown into by a head other than inpatient is to follow-up with GI doctor tomorrow. Patient well hydrated appearing, in no respiratory distress, hemodynamically stable. Recommend supportive care. The patient is stable at time of discharge the clinical impression was discussed and the patient was given the opportunity to ask questions, which were addressed as completely as possible given the information available at present. Anticipatory guidance and return to care precautions were discussed and the importance of primary care follow-up was stressed and encouraged. The patient voiced understanding of the plan, indications to return, and the need for follow-up. Exam findings show no acute concerns or changes Patient is appropriate for outpatient treatment and follow-up. Differential Diagnosis Differential Diagnosis: Differential diagnosis considered: Calixto virus, strep pharyngitis, allergic rhinitis, upper respiratory tract infection, sinusitis, rhinosinusitis, nasopharyngitis. viral pharyngitis, otitis media, otitis externa, otitis effusion, foreign body, cerumen impaction, viral syndrome, and influenza.? Medical Records I have reviewed the following patient records and this information was taken into consideration when formulating the assessment and plan.: previous clinic visits Lab Data MDM Lab Attestation statement: I personally reviewed the patient's lab results. Labs: Lab Results 06/19/25 Range/Units 15:38 POC Grp A Strep Screen Positive (Negative) Discharge Plan Discharge Clinical Impression: Strep throat Patient Disposition: Home Condition: Stable Instructions: Strep Throat (ED) Additional Instructions: Your rapid strep swab was positive today at [facility]. After 24 hours on antibiotics throw tooth brush away and start using a new one. Wash your sheets and cup/water bottle that is used daily. Do not share drinks. Take Motrin alternating with Tylenol for pain and fever alternating every 3 hours. 8 AM: Tylenol 11 AM: Ibuprofen 2 PM: Tylenol 5 PM: Ibuprofen 8 PM: Tylenol 11 PM: Ibuprofen 2 AM: Tylenol 5 AM: Ibuprofen Increase fluids, avoid caffeine. Other symptomatic treatments include: -Antihistamine medication such as Benadryl at night and Zyrtec/Claritin/Blank during the day can help improve symptoms. -Use Flonase twice a day for 5 days then daily to help reduce the inflammation and dry up your sinuses. -You can also use Sudafed or Mucinex. Be sure to drink plenty of water with these medications at least 8 ounces with every dose and it is important to drink 8 to 10 glasses of water per day. Water is a natural decongestant -Eat and drink things that are easy to swallow, like tea or soup, or popsicles. -Oral rinses such as: Salt water gargles and/or may use topical anesthetic (eg. Chloraseptic spray) or lozenges to relieve dryness or throat pain). -Frequent hand washing or hand paediatric thoracic physician is one of the best ways to prevent spread of infection. -Using a vaporizer or humidifier at night will also help thin secretions and help with coughing up phlegm. -Follow up with primary care provider in 3-5 days if condition is not improving - For new or worsening symptoms go directly to the nearest ER Patient Language: Burkinan Prescriptions: New amoxicillin 500 mg capsule 500 mg PO BID 10 Days Qty: 20 0RF No Action omeprazole 40 mg capsule,delayed release(DR/EC) albuterol sulfate 90 mcg/actuation HFA aerosol inhaler INHALATION atorvastatin 40 mg tablet 40 mg PO QPM Follow-up/Referrals: Vadim,KATARZYNA Lange [Primary Care Provider, Unknown] - 3 Days Time of Disposition: 16:03
[2025-06-19 15:51] LABS: EDSTREPNEGPOS1 Positive (Negative)
== END 2025-06-19 16:10 | disposition home or self-care (01) ==
PROVIDERS: Emergency Provider Nurse Practitioner Family; PCP Physician Assistant
DX: J02.0 Streptococcal pharyngitis (principal)
CPT/HCPCS: 87880; 99213; G0463